=== PATIENT | male | born 1945 | race Caucasian/White ===

== ENCOUNTER 2023-02-20 12:18 | Inpatient (IN) ==
[2023-02-20 12:57] LABS: Basophils # (auto) 0.02 K/uL (0-0.2); Basophils % (auto) 0.3 %; Eosinophils # (auto) 0.02 K/uL (0-0.50); Eosinophils % (auto) 0.3 %; Hematocrit (blood only) 44.2 % (42.0-52.0); Hemoglobin 14.7 g/dl (14.0-18.0); Immature Granulocytes # (auto) 0.02 K/uL (0.01-0.20); Immature Granulocytes % (auto) 0.3 %; Lymphocytes % (auto) 13.2 %; Mean Corpuscular Hemoglobin 30.8 pg (25.0-34.0); Mean Corpuscular Hgb Conc 33.3 g/dL (32.0-36.0); Mean Corpuscular Volume 92.7 fL (80.0-100.0); Mean Platelet Volume 9.3 fL (9.4-12.4); Monocytes # (auto) 0.49 K/uL (0.11-0.59); Monocytes % (auto) 7.2 %; Neutrophils # (auto) 5.39 K/uL (1.40-6.50); Neutrophils % (auto) 78.7 %; Platelet Count 292 K/uL (130-400); RDW Coefficient of Variation 13.8 % (11.5-14.5); Red Blood Count 4.77 M/uL (4.70-6.10); White Blood Count 6.84 K/ul (4.8-10.8)
[2023-02-20 13:10] LABS: Alanine Aminotransferase 27 U/L (7-52); Albumin Globulin Ratio 1.2 (0.9-2); Alkaline Phosphatase 91 U/L (34-104); Anion Gap 6 (3-11); Aspartate Aminotransferase 22 U/L (13-39); BUN Creatinine Ratio 14.6 (10-20); Bilirubin,Total 0.7 mg/dl (0.2-1.0); Blood Urea Nitrogen 14 mg/dl (6-23); Calcium 8.8 mg/dl (8.6-10.3); Carbon Dioxide 25 mmol/L (21-32); Chloride 105 mmol/L (98-107); Est GFR (African American) 89.3 ml/min; Globulin 3.3 gm/dl (2.5-4.0); Glucose 81 mg/dl (70-99(Fasting)); Lipase 319 U/L (11-82); Potassium 3.9 mmol/L (3.5-5.1); Sodium 136 mmol/L (136-145); Total Protein 7.3 gm/dl (6.0-8.3)
[2023-02-20] MEDS ORDERED: SODIUM CHLORIDE 0.9% 1000ML 1,000 ML IV ONE (14:44)
[2023-02-20] MEDS ORDERED: ONDANSETRON INJ 2 MG/ML 2 ML VIAL IV STA (14:46)
--- NOTE | 2023-02-20 14:49 | Emergency Department Note ---
Impression & Plan Acute pancreatitis, Abdominal pain ED Provider Note NAME: LANCE TORRES AGE: 77 SEX: M : 1945 ARRIVES VIA: Walk-In INFORMANT: Patient ED PROVIDER(S): Errol Cleveland DO CHIEF COMPLAINT: abdominal pain HPI: Patient is a 77-year-old male who presents the ER with past medical history of hypertension GERD and previous abdominal surgeries which include hernia repair for periumbilical to left mid abdominal pain. This started this past Monday. Significant worsened with eating. If he does not eat and improves. Associate with nausea but no vomiting. Denies any dysuria, urgency, or frequency. No headache or change in vision. No chest pain or shortness of breath. He has never had this before. Does not drink alcohol regularly. He has not had any alcohol recently. No history of pancreatitis. He did see his PCP and was referred in for further evaluation management treatment. PAST MEDICAL HISTORY:See Below PAST SURGICAL HISTORY:See Below FAMILY HISTORY:See Below SOCIAL HISTORY:See Below HOME MEDICATIONS:See Below ALLERGIES:See Below VITALS:See Below PHYSICAL EXAMINATION: GENERAL: Sitting up in bed, alert, well appearing, well nourished, no distress, non-toxic EYE EXAM: normal conjunctiva. OROPHARYNX: no exudate, no erythema, lips, buccal mucosa, and tongue normal and mucous membranes are moist NECK: supple, no nuchal rigidity, no adenopathy, non-tender LUNGS: Clear to auscultation. Normal chest wall mechanics HEART: no murmurs, S1 normal and S2 normal ABDOMEN: abdomen soft, mild tenderness in left upper quadrant, normo-active bowel sounds, no masses, no rebound or guarding. UPPER EXTREMITIES: upper extremities are grossly normal. LOWER EXTREMITIES: No pitting edema. NEURO EXAM: Normal sensorium, cranial nerves II-XII grossly intact, normal speech, no gross weakness of arms, no gross weakness of legs. MEDICAL DECISION MAKING: Patient is a 77-year-old male who presents ER for periumbilical abdominal pain radiating through to the back. IV was established blood work was obtained. Labs show no significant leukocytosis or anemia. BMP along with LFTs bilirubin was unremarkable. Lipase was elevated at 320. CT abdomen pelvis confirms pancreatitis. UA was clean. Patient was given IV fluids and Zofran. He was updated bedside. He was fairly comfortable as long as he was not eating. He was discussed with the hospitalist for further evaluation management treatment. Triage Nursing notes reviewed. Limited review of prior medical records performed Vital Signs: reviewed and remarkable for no significant abnormalities Differential diagnosis: Differential diagnoses includes but is not limited to gastritis, peptic ulcer disease, GERD, gallbladder disease, pancreatitis, small bowel obstruction, appendicitis, diverticulitis, hernia, urinary tract infection, torsion, perfo ration, trauma, infectious. ER treatment provided: See below Diagnostics interpreted by me include EKG and cardiac monitoring as listed below: -Cardiac Monitoring: An order was placed for continuous cardiac monitoring. The monitor shows a rate of 50 with sinus rhythm. -ECG: none -Laboratory studies:Interpreted by me as stated above in MDM and shown below. Imaging studies: Xrays: As interpreted by me:none CTs show: CT abdomen pelvis per my read showed no obvious obstruction Consultation(s): As described in MDM Procedures:none Critical Care: None Past Med/Surg History Medical History (Updated 02/20/23 @ 20:08 by Errol Cleveland DO) Aortic valve stenosis Atrial fibrillation GERD (gastroesophageal reflux disease) HTN (hypertension) Surgical History (Updated 02/20/23 @ 18:16 by Kaitlyn Richardson PA-C) History of hip replacement b/l Hx of aortic valve replacement done in [place], [place] Dr. Zach Wood Hx of hernia repair age 7 Family History (Updated 02/20/23 @ 18:17 by Kaitlyn Richardson PA-C) Other Family history non-contributory Social History (Updated 02/20/23 @ 18:17 by Kaitlyn Richardson PA-C) Smoking Status: Former smoker Hx Alcohol Use: Yes Hx Substance Use: No Preferred Language: Kinyarwanda marital status: Current Living Situation: Spouse current occupational status: retired Feels Safe at Home: Yes Allergies Allergies Allergy/AdvReac Type Severity Reaction Status Date / Time latex Allergy Intermediate swelling Verified 02/20/23 15:37 on contact ragweed pollen Allergy Intermediate swelling Verified 02/20/23 15:37 tetracycline Allergy Intermediate hives Verified 02/20/23 15:37 Home Meds Home Medications Medication Instructions Recorded Confirmed amlodipine 10 mg tablet (Norvasc) 10 mg PO DAILY 12/15/18 02/20/23 amoxicillin 500 mg capsule 2,000 mg PO DIRECTED 12/15/18 02/20/23 ascorbate calcium-bioflavonoid 500 1 tab PO DAILY 12/15/18 02/20/23 mg-200 mg tablet (Macey-C with Bioflavonoids) calcium carbonate 600 mg calcium 600 mg PO DAILY 12/15/18 02/20/23 (1,500 mg) tablet (Calcium) enalapril maleate 20 mg tablet 20 mg PO DAILY 12/15/18 02/20/23 magnesium oxide 400 mg PO BID 12/15/18 02/20/23 vitamin B complex (B-Complex 1 tab PO DAILY 12/15/18 02/20/23 tablet) amiodarone 200 mg tablet 200 mg PO DAILY 02/20/23 02/20/23 aspirin 81 mg tablet,delayed 81 mg PO DAILY 02/20/23 02/20/23 release yaoqiwvoiyq-izr-ayfhmmxyw-hrb 2 tab PO DAILY 02/20/23 02/20/23 149-hyalur 500 mg-500 mg-66.7 mg tablet (Pdqnzanzofy-Caowzvqtaoc-KMK (with antiox)) lansoprazole 30 mg capsule,delayed 30 mg PO DAILY 02/20/23 02/20/23 release Results & Data (ED) Vital Signs Vital Signs - 24 hr 02/20/23 12:22 02/20/23 14:52 02/20/23 14:53 Temperature 36.8 C Temperature Source Temporal Artery Scan Pulse Rate 48 L 53 L Pulse Rate [Apical] 52 L Pulse Rate from SpO2 Sensor Respiratory Rate 18 22 22 Respiratory Effort / Characteristics Non-Labored Spontaneous Respiratory Depth Normal Respiratory Pattern Regular Blood Pressure 116/78 Blood Pressure [Right Arm] 150/74 H Blood Pressure Mean 90 Blood Pressure Mean [Right Arm] 99 Blood Pressure Position [Right Arm] Semi-fowlers Pulse Oximetry 98 95 94 Oxygen Delivery Method Room Air Room Air Room Air Sepsis Recent Fever Within 48 Hours No Sepsis New/Unexplained Change in Mental Status No Sepsis Action Taken by Nursing No Action Required 02/20/23 14:59 02/20/23 14:53 02/20/23 14:53 Temperature Temperature Source Pulse Rate 50 L 53 L Pulse Rate [Apical] Pulse Rate from SpO2 Sensor 52 L Respiratory Rate 16 Respiratory Effort / Characteristics Respiratory Depth Respiratory Pattern Blood Pressure 150/74 H Blood Pressure [Right Arm] Blood Pressure Mean 105 Blood Pressure Mean [Right Arm] Blood Pressure Position [Right Arm] Pulse Oximetry 95 Oxygen Delivery Method Sepsis Recent Fever Within 48 Hours Sepsis New/Unexplained Change in Mental Status Sepsis Action Taken by Nursing 02/20/23 15:00 02/20/23 15:10 02/20/23 15:28 Temperature Temperature Source Pulse Rate 51 L 47 L 59 L Pulse Rate [Apical] Pulse Rate from SpO2 Sensor 51 L 47 L Respiratory Rate 21 21 22 Respiratory Effort / Characteristics Respiratory Depth Respiratory Pattern Blood Pressure Blood Pressure [Right Arm] Blood Pressure Mean Blood Pressure Mean [Right Arm] Blood Pressure Position [Right Arm] Pulse Oximetry 94 94 Oxygen Delivery Method Sepsis Recent Fever Within 48 Hours Sepsis New/Unexplained Change in Mental Status Sepsis Action Taken by Nursing 02/20/23 15:30 02/20/23 15:40 02/20/23 15:50 Temperature Temperature Source Pulse Rate 57 L 50 L 51 L Pulse Rate [Apical] Pulse Rate from SpO2 Sensor Respiratory Rate 21 23 20 Respiratory Effort / Characteristics Respiratory Depth Respiratory Pattern Blood Pressure Blood Pressure [Right Arm] Blood Pressure Mean Blood Pressure Mean [Right Arm] Blood Pressure Position [Right Arm] Pulse Oximetry Oxygen Delivery Method Sepsis Recent Fever Within 48 Hours Sepsis New/Unexplained Change in Mental Status Sepsis Action Taken by Nursing 02/20/23 16:00 02/20/23 16:10 02/20/23 16:23 Temperature Temperature Source Pulse Rate 53 L 49 L 50 L Pulse Rate [Apical] Pulse Rate from SpO2 Sensor Respiratory Rate 22 19 17 Respiratory Effort / Characteristics Respiratory Depth Respiratory Pattern Blood Pressure Blood Pressure [Right Arm] Blood Pressure Mean Blood Pressure Mean [Right Arm] Blood Pressure Position [Right Arm] Pulse Oximetry Oxygen Delivery Method Sepsis Recent Fever Within 48 Hours Sepsis New/Unexplained Change in Mental Status Sepsis Action Taken by Nursing 02/20/23 16:24 02/20/23 16:24 02/20/23 16:30 Temperature Temperature Source Pulse Rate 49 L 46 L Pulse Rate [Apical] Pulse Rate from SpO2 Sensor 49 L 46 L Respiratory Rate 21 16 Respiratory Effort / Characteristics Respiratory Depth Respiratory Pattern Blood Pressure 139/68 Blood Pressure [Right Arm] Blood Pressure Mean 85 Blood Pressure Mean [Right Arm] Blood Pressure Position [Right Arm] Pulse Oximetry 93 95 Oxygen Delivery Method Sepsis Recent Fever Within 48 Hours Sepsis New/Unexplained Change in Mental Status Sepsis Action Taken by Nursing 02/20/23 16:40 02/20/23 16:50 02/20/23 17:00 Temperature Temperature Source Pulse Rate 47 L 45 L Pulse Rate [Apical] Pulse Rate from SpO2 Sensor 47 L 48 L Respiratory Rate 17 16 Respiratory Effort / Characteristics Respiratory Depth Respiratory Pattern Blood Pressure 121/71 Blood Pressure [Right Arm] Blood Pressure Mean 88 Blood Pressure Mean [Right Arm] Blood Pressure Position [Right Arm] Pulse Oximetry 93 90 Oxygen Delivery Method Sepsis Recent Fever Within 48 Hours Sepsis New/Unexplained Change in Mental Status Sepsis Action Taken by Nursing 02/20/23 17:00 02/20/23 17:10 02/20/23 17:20 Temperature Temperature Source Pulse Rate 52 L 53 L 52 L Pulse Rate [Apical] Pulse Rate from SpO2 Sensor 53 L 56 L Respiratory Rate 23 18 20 Respiratory Effort / Characteristics Respiratory Depth Respiratory Pattern Blood Pressure Blood Pressure [Right Arm] Blood Pressure Mean Blood Pressure Mean [Right Arm] Blood Pressure Position [Right Arm] Pulse Oximetry 95 94 Oxygen Delivery Method Sepsis Recent Fever Within 48 Hours Sepsis New/Unexplained Change in Mental Status Sepsis Action Taken by Nursing 02/20/23 17:30 02/20/23 17:40 02/20/23 17:50 Temperature Temperature Source Pulse Rate 60 52 L 49 L Pulse Rate [Apical] Pulse Rate from SpO2 Sensor Respiratory Rate 17 21 19 Respiratory Effort / Characteristics Respiratory Depth Respiratory Pattern Blood Pressure Blood Pressure [Right Arm] Blood Pressure Mean Blood Pressure Mean [Right Arm] Blood Pressure Position [Right Arm] Pulse Oximetry Oxygen Delivery Method Sepsis Recent Fever Within 48 Hours Sepsis New/Unexplained Change in Mental Status Sepsis Action Taken by Nursing 02/20/23 18:00 02/20/23 18:00 02/20/23 18:10 Temperature Temperature Source Pulse Rate 48 L 47 L Pulse Rate [Apical] Pulse Rate from SpO2 Sensor Respiratory Rate 12 17 Respiratory Effort / Characteristics Respiratory Depth Respiratory Pattern Blood Pressure 133/68 Blood Pressure [Right Arm] Blood Pressure Mean 81 Blood Pressure Mean [Right Arm] Blood Pressure Position [Right Arm] Pulse Oximetry Oxygen Delivery Method Sepsis Recent Fever Within 48 Hours Sepsis New/Unexplained Change in Mental Status Sepsis Action Taken by Nursing Laboratory Data 02/20/23 12:38 02/20/23 12:38 Lab Results 02/20/23 02/20/23 02/20/23 Range/Units 12:38 12:38 14:52 WBC 6.84 (4.8-10.8) K/ul RBC 4.77 (4.70-6.10) M/uL Hgb 14.7 (14.0-18.0) g/dl Hct 44.2 (42.0-52.0) % MCV 92.7 (80.0-100.0) fL MCH 30.8 (25.0-34.0) pg MCHC 33.3 (32.0-36.0) g/dL RDW Std Deviation 47.0 H (36.4-46.3) fL RDW Coeff of Willa 13.8 (11.5-14.5) % Plt Count 292 (130-400) K/uL MPV 9.3 L (9.4-12.4) fL Immature Gran % (Auto) 0.3 % Neut % (Auto) 78.7 % Lymph % (Auto) 13.2 % Lucas % (Auto) 7.2 % Eos % (Auto) 0.3 % Baso % (Auto) 0.3 % Neut # (Auto) 5.39 (1.40-6.50) K/uL Lymph # (Auto) 0.90 L (1.2-3.4) K/uL Lucas # (Auto) 0.49 (0.11-0.59) K/uL Eos # (Auto) 0.02 (0-0.50) K/uL Baso # (Auto) 0.02 (0-0.2) K/uL Immature Gran # (Auto) 0.02 (0.01-0.20) K/uL Sodium 136 (136-145) mmol/L Potassium 3.9 (3.5-5.1) mmol/L Chloride 105 (98-107) mmol/L Carbon Dioxide 25 (21-32) mmol/L Anion Gap 6 (3-11) BUN 14 (6-23) mg/dl Creatinine 0.96 (0.6-1.4) mg/dl Est Cr Clr Drug Dosing Not Reportable Est GFR ( Amer) 89.3 ml/min Est GFR (Non-Af Amer) 77.0 ml/min BUN/Creatinine Ratio 14.6 (10-20) Glucose 81 (70-99(Fasting)) mg/dl Calcium 8.8 (8.6-10.3) mg/dl Total Bilirubin 0.7 (0.2-1.0) mg/dl AST 22 (13-39) U/L ALT 27 (7-52) U/L Alkaline Phosphatase 91 (34-104) U/L Total Protein 7.3 (6.0-8.3) gm/dl Albumin 4.0 (3.4-5.0) gm/dl Globulin 3.3 (2.5-4.0) gm/dl Albumin/Globulin Ratio 1.2 (0.9-2) Lipase 319 H (11-82) U/L Urine Color Dark Yellow Urine Appearance Clear (Clear) Urine pH 5.5 (4.5-7.5) Ur Specific [place] 1.023 (1.000-1.030) Urine Protein Trace H (Negative) Urine Glucose (UA) Negative (Negative) Urine Ketones 1+ H (Negative) Urine Blood Negative (Negative) Urine Nitrite Negative (Negative) Urine Bilirubin 1+ H (Negative) Urine Urobilinogen Negative (Negative) Ur Leukocyte Esterase Negative (Negative) Urine WBC (Auto) 1-5 (0-5) /hpf Urine RBC (Auto) 0-4 (0-4) /hpf U Hyaline Cast (Auto) 5-10 H (0-5) /lpf U Epithel Cells (Auto) 5-10 H (0-5) /lpf Urine Bacteria (Auto) Negative (Negative) Administered Medications Discontinued Medications Sodium Chloride (Nss 1000ml) 1,000 mls @ 999 mls/hr IV .Q1H1M ONE Stop: 02/20/23 15:44 Last Admin: 02/20/23 14:54 Dose: 999 mls/hr Documented By: Ioversol (Optiray 350 500ml) 88 ml IV ONCE ONE Stop: 02/20/23 15:22 Last Admin: 02/20/23 15:22 Dose: 88 ml Documented By: UTE Ondansetron HCl (Ondansetron Inj 2 Mg/Ml 2 Ml Vial) 4 mg IV NOW STA Stop: 02/20/23 14:47 Last Admin: 02/20/23 14:54 Dose: 4 mg Documented By: Imaging Data Radiologist's Impression: Abdomen/Pelvis CT 02/20/23 14:44 CT SCAN OF THE ABDOMEN AND PELVIS WITH IV CONTRAST CLINICAL HISTORY: Generalized abdominal pain. COMPARISON STUDY: No priors TECHNIQUE: Following the IV administration of 88 cc of Optiray 350, CT scan of the abdomen and pelvis is performed from the lung bases to the proximal femora. Images are reviewed in the axial, sagittal, and coronal planes. IV contrast was administered without complication. A dose lowering technique was utilized adhe ring to the principles of ALARA. CT DOSE: 1195.93 mGy.cm FINDINGS: Lung bases: The patient is status post midline sternotomy and aortic valve surgery. The coronary arteries are densely calcified. The heart is enlarged and without pericardial effusion. There is an 8 mm pulmonary nodule at the left lung base seen on image #16. Scarring/atelectasis is present at both lung bases. No airspace consolidation or pleural effusion is identified. Liver: The contrast-enhanced liver is normal in size, contour, and attenuation. There is no intrahepatic biliary ductal dilatation. The hepatic veins and portal veins are patent. Gallbladder: Unremarkable. Spleen: Normal in size and attenuation. Pancreas: The pancreas is mildly atrophic. Question faint peripancreatic infiltration. The pancreas is otherwise normal in appearance and enhances throughout. Adrenal glands: Unremarkable. Kidneys: The contrast enhanced kidneys demonstrate mild cortical atrophy and are without hydronephrosis. The kidneys enhance symmetrically. There are small bilateral renal sinus cysts. A 1.9 cm exophytic cyst arises from the left upper pole. Abdominal vasculature: There is moderate atherosclerotic calcification and mild ectasia of the abdominal aorta. Bowel: There is moderate colonic fecal retention. No bowel obstruction is seen. The appendix is well-visualized and normal. Peritoneum: There is no intraperitoneal free air or abdominal ascites. There is a fat-containing umbilical hernia. Lymphadenopathy: None. Pelvic viscera: Evaluation of the pelvis is degraded by streak artifact from bilateral hip arthroplasties. The bladder, prostate, and seminal vesicles are normal as visualized. Skeletal structures: The skeletal structures are osteopenic. There is moderate lumbosacral spondylosis. There are bilateral pars defects at L5 with advanced disc space narrowing and 14 mm of anterolisthesis at L5-S1. No lytic or blastic lesions are seen. Bilateral hip arthroplasties are in place. IMPRESSION: 1. Question faint peripancreatic infiltration. Correlate with clinical laboratory findings for evidence of mild pancreatitis. 2. Cardiomegaly. 3. Additional findings as above. ACT 112: Negative or not required by law. Electronically signed by: Venkat Velasquez M.D. 02/20/2023 3:44 PM Discharge Plan Visit Data Chief Complaint: Flank Pain Stated Complaint: FLANK PAIN,NAUSEA, ED Provider: Errol Cleveland Discharge Problem: Acute pancreatitis, Abdominal pain Forms Stand Alone Forms: [facility] Prescriptions Prescriptions: No Action enalapril maleate 20 mg tablet 20 mg PO DAILY amlodipine [Norvasc] 10 mg Tablet 10 mg PO DAILY amoxicillin 500 mg Capsule 2,000 mg PO DIRECTED Rx Instructions: TAKE 1 HR PRIOR TO DENTAL PROCEDURE calcium carbonate [Calcium 600] 600 mg calcium (1,500 mg) Tablet 600 mg PO DAILY vitamin B complex [B-Complex] Tablet 1 tab PO DAILY Macey-C with Bioflavonoids 500-200 mg Tablet 1 tab PO DAILY magnesium oxide 400 mg magnesium Tablet 400 mg PO BID amiodarone 200 mg tablet 200 mg PO DAILY aspirin [Aspir-Low] 81 mg Tablet,Delayed Release (Dr/Ec) 81 mg PO DAILY lansoprazole 30 mg capsule,delayed release(DR/EC) 30 mg PO DAILY [id number] [Fbytam-Nqtme-ECC (with antiox)] 500-500-66.7 mg Tablet 2 tab PO DAILY Referrals Referrals: PCP,NO [Physician] -
[2023-02-20 15:17] LABS: Appearance Urine Clear (Clear); Bacteria Urine Automated Negative (Negative); Blood Urine Negative (Negative); Color Urine Dark Yellow; Glucose Urine UA Negative (Negative); Ketones Urine 1+ (Negative); Leukocyte Esterase Urine Negative (Negative); Nitrite Urine Negative (Negative); Protein Urine Trace (Negative); RBC Urine Automated 0-4 /hpf (0-4); Specific Gravity Urine 1.023 (1.000-1.030); Urobilinogen Urine Negative (Negative); pH Urine 5.5 (4.5-7.5)
[2023-02-20 15:20] LABS: Bilirubin Urine 1+ (Negative)
[2023-02-20] MEDS ORDERED: OPTIRAY 350 500ml IV ONE (15:21)
--- NOTE | 2023-02-20 15:47 | CT Scan Report ---
CT SCAN OF THE ABDOMEN AND PELVIS WITH IV CONTRAST CLINICAL HISTORY: Generalized abdominal pain. COMPARISON STUDY: No priors TECHNIQUE: Following the IV administration of 88 cc of Optiray 350, CT scan of the abdomen and pelvi s is performed from the lung bases to the proximal femora. Images are reviewed in the axial, sagittal , and coronal planes. IV contrast was administered without complication. A dose lowering technique wa s utilized adhering to the principles of ALARA. CT DOSE: 1195.93 mGy.cm FINDINGS: Lung bases: The patient is status post midline sternotomy and aortic valve surgery. The coronary amberly quinn are densely calcified. The heart is enlarged and without pericardial effusion. There is an 8 mm pulmonary nodule at the left lung base seen on image #16. Scarring/atelectasis is present at both corey g bases. No airspace consolidation or pleural effusion is identified. Liver: The contrast-enhanced liver is normal in size, contour, and attenuation. There is no intrahepa tic biliary ductal dilatation. The hepatic veins and portal veins are patent. Gallbladder: Unremarkable. Spleen: Normal in size and attenuation. Pancreas: The pancreas is mildly atrophic. Question faint peripancreatic infiltration. The pancreas i s otherwise normal in appearance and enhances throughout. Adrenal glands: Unremarkable. Kidneys: The contrast enhanced kidneys demonstrate mild cortical atrophy and are without hydronephros is. The kidneys enhance symmetrically. There are small bilateral renal sinus cysts. A 1.9 cm exophyti c cyst arises from the left upper pole. Abdominal vasculature: There is moderate atherosclerotic calcification and mild ectasia of the abdomi nal aorta. Bowel: There is moderate colonic fecal retention. No bowel obstruction is seen. The appendix is well -visualized and normal. Peritoneum: There is no intraperitoneal free air or abdominal ascites. There is a fat-containing umbi lical hernia. Lymphadenopathy: None. Pelvic viscera: Evaluation of the pelvis is degraded by streak artifact from bilateral hip arthroplas ties. The bladder, prostate, and seminal vesicles are normal as visualized. Skeletal structures: The skeletal structures are osteopenic. There is moderate lumbosacral spondylosi s. There are bilateral pars defects at L5 with advanced disc space narrowing and 14 mm of anterolisth esis at L5-S1. No lytic or blastic lesions are seen. Bilateral hip arthroplasties are in place. IMPRESSION: 1. Question faint peripancreatic infiltration. Correlate with clinical laboratory findings for eviden ce of mild pancreatitis. 2. Cardiomegaly. 3. Additional findings as above. ACT 112: Negative or not required by law. Electronically signed by: Venkat Velasquez M.D. 02/20/2023 3:44 PM
--- NOTE | 2023-02-20 16:54 | History & Physical Report ---
Date of Service February 20, 2023 Assessment & Plan (1) Abdominal pain: (2) Acute pancreatitis: (3) Atrial fibrillation: (4) Hypertension: Plan This is a 77-year-old male who has significant past medical history of PAF, history of aortic valve replacement in 2018, HTN, GERD who presents ED secondary to abdominal pain. Abdominal Pain Acute pancreatitis admit to medical NPO, bowel rest IVF LR @ 125cc/hr - will run at slower rate in setting of AVR will consult GI obtain GB US obtain fasting lipid panel in a.m. although previous lipids unremarkable pt does have hx of drinking wine, but none in last 2-3 weeks sx due appear consistent with GB dysfunction as well trend lipase other possible etiologies of abd pain could be functional dyspepsia, ? GB dysfunction, hx of gastric polyps pt reports 30lb weight loss that is intentional Hx of PAF S/p Bioprosthetic AVR chronic, stable currently in NSR on amiodarone as OP followed Cards down in [place], [place] is establishing with [email or web address] HTN continue enalapril and norvasc bp stable, chronic DVT ppx: SQ Lovenox FULL CODE PCP: Cezar Dispo: med/surg Pt was seen and examined in collaboration with Dr. Ram, please see addendum A total of 75 was spent coordinating, documenting, and providing care for this patient excluding time spent in the performance of separately billed services. This included personally viewing all current laboratories and imaging studies, medication reconciliation, outpatient chart review, and discussion with specialists. History of Present Illness Chief Complaint: Abdominal pain Primary Care Provider: Ana Robb MD This is a 77-year-old male who has significant past medical history of PAF, history of aortic valve replacement in 2018, HTN, GERD who presents ED secondary to abdominal pain. Patient's is at bedside. He states on February 09 he contracted a viral gastroenteritis in which his also caught. This was associated with watery diarrhea and fever of 100.5. He did do a COVID home test which was negative. Since then he has not felt quite right. He has been having increased abdominal bloating, belching, constipation and abdominal discomfort postprandial. He has had generalized abdominal discomfort in his left upper abdomen which is constant, but worsens after meals. Pain also has been radiating to his back. It does not seem to be positional. He does report fever last evening of 100.1, but this morning was 98.6 he has lost 30 pounds in the last 3 months which has been intentional. He further complains of nausea but denies any vomiting. He denies any lightheadedness, dizziness, chest pain, shortness of breath, URI symptoms, hematemesis, melena or hematochezia. He is urinating with difficulty but felt urine was very dark. He denies any dysuria, increased urgency or frequency with urination or diarrhea. He had a v alma small bowel movement today. In ED CBC and CMP was generally unremarkable. He did have mild elevated lipase at 319. His LFTs were normal. CT abdomen pelvis concerning for faint peripancreatic infiltration and cardiomegaly. Patient denies any prior history of gallbladder issues. He tries to drink alcohol but has not drank in the last 2 to 3 weeks. Typically drinks 3 to 4 glasses of wine weekly. Allergies Allergy/AdvReac Type Severity Reaction Status Date / Time latex Allergy Intermediate swelling Verified 02/20/23 15:37 on contact ragweed pollen Allergy Intermediate swelling Verified 02/20/23 15:37 tetracycline Allergy Intermediate hives Verified 02/20/23 15:37 Home Medications Medication Instructions Recorded Confirmed Type amlodipine 10 mg tablet (Norvasc) 10 mg PO DAILY 12/15/18 02/20/23 History amoxicillin 500 mg capsule 2,000 mg PO DIRECTED 12/15/18 02/20/23 History ascorbate calcium-bioflavonoid 500 1 tab PO DAILY 12/15/18 02/20/23 History mg-200 mg tablet (Macey-C with Bioflavonoids) calcium carbonate 600 mg calcium 600 mg PO DAILY 12/15/18 02/20/23 History (1,500 mg) tablet (Calcium) enalapril maleate 20 mg tablet 20 mg PO DAILY 12/15/18 02/20/23 History magnesium oxide 400 mg PO BID 12/15/18 02/20/23 History vitamin B complex (B-Complex 1 tab PO DAILY 12/15/18 02/20/23 History tablet) amiodarone 200 mg tablet 200 mg PO DAILY 02/20/23 02/20/23 History aspirin 81 mg tablet,delayed 81 mg PO DAILY 02/20/23 02/20/23 History release djrdfbftpeo-aaz-hvymjmlaj-hrb 2 tab PO DAILY 02/20/23 02/20/23 History 149-hyalur 500 mg-500 mg-66.7 mg tablet (Jfkjmjpbihi-Azcjqmrtesx-YTM (with antiox)) lansoprazole 30 mg capsule,delayed 30 mg PO DAILY 02/20/23 02/20/23 History release Past Med/Surg History Medical History (Updated 02/20/23 @ 20:08 by Errol Cleveland DO) Aortic valve stenosis Atrial fibrillation GERD (gastroesophageal reflux disease) HTN (hypertension) Surgical History (Updated 02/20/23 @ 18:16 by Kaitlyn Richardson PA-C) History of hip replacement b/l Hx of aortic valve replacement done in [place], [place] Dr. Zach Wood Hx of hernia repair age 7 Family History (Updated 02/20/23 @ 18:17 by Kaitlyn Richardson PA-C) Other Family history non-contributory Social History (Updated 02/20/23 @ 18:17 by Kaitlyn Richardson PA-C) Smoking Status: Former smoker Hx Alcohol Use: Yes Hx Substance Use: No Preferred Language: Mosotho marital status: Current Living Situation: Spouse current occupational status: retired Feels Safe at Home: Yes Review of Systems Review of Systems: All systems reviewed & are unremarkable except as noted in HPI & below Physical Exam Physical Exam: Constitutional: WD/WN, vitals as above, NAD, sitting up in bed, pleasant, conversing easily Head: Normocephalic, Atraumatic Eyes: PERRL, conjunctivae normal, anicteric sclerae ENMT: external ear and nose normal, oropharynx normal Neck: trachea midline, no thyromegaly normal visual inspection Respiratory: normal respiratory effort, lungs clear to auscultation, no wheeze, rales, rhonchi. Normal insp/exp effort, no accessory muscle use Cardiovascular: RRR, no murmur, no edema Vessels: no JVD or carotid bruit Chest: normal inspection of chest Abdomen: normal bowel sounds, distended but soft, TTP LUQ, no rebound, guarding,no hepatosplenomegaly Musculoskeletal: no cyanosis or clubbing, extremities motor strength 5/5 Skin: no rashes, warm and dry normal turgor Neurologic: PERRL, EOMI, accommodation nl, no face palsy, no dysarthria CN's II-XI intact bilaterally and moves all extremities Psychiatric: A+Ox3, euthymic affect : deferred Results & Data Results & Data Vital Signs (Past 12 Hours) Vital Signs Temp Pulse Pulse Resp BP BP Pulse Ox 02/20/23 15:10 47 L 21 94 02/20/23 15:00 51 L 21 94 02/20/23 14:53 53 L 16 95 02/20/23 14:53 150/74 H 02/20/23 14:59 50 L 02/20/23 14:53 52 L 22 150/74 H 94 02/20/23 14:52 53 L 22 95 02/20/23 12:22 36.8 C 48 L 18 116/78 98 O2 Del Method 02/20/23 15:10 02/20/23 15:00 02/20/23 14:53 02/20/23 14:53 02/20/23 14:59 02/20/23 14:53 Room Air 02/20/23 14:52 Room Air 02/20/23 12:22 Room Air Diagnostic Findings Abdomen/Pelvis CT 02/20/23 14:44 CT SCAN OF THE ABDOMEN AND PELVIS WITH IV CONTRAST CLINICAL HISTORY: Generalized abdominal pain. COMPARISON STUDY: No priors TECHNIQUE: Following the IV administration of 88 cc of Optiray 350, CT scan of the abdomen and pelvis is performed from the lung bases to the proximal femora. Images are reviewed in the axial, sagittal, and coronal planes. IV contrast was administered without complication. A dose lowering technique was utilized adhering to the principles of ALARA. CT DOSE: 1195.93 mGy.cm FINDINGS: Lung bases: The patient is status post midline sternotomy and aortic valve surgery. The coronary arteries are densely calcified. The heart is enlarged and without pericardial effusion. There is an 8 mm pulmonary nodule at the left lung base seen on image #16. Scarring/atelectasis is present at both lung bases. No airspace consolidation or pleural effusion is identified. Liver: The contrast-enhanced liver is normal in size, contour, and attenuation. There is no intrahepatic biliary ductal dilatation. The hepatic veins and portal veins are patent. Gallbladder: Unremarkable. Spleen: Normal in size and attenuation. Pancreas: The pancreas is mildly atrophic. Question faint peripancreatic infiltration. The pancreas is otherwise normal in appearance and enhances throughout. Adrenal glands: Unremarkable. Kidneys: The contrast enhanced kidneys demonstrate mild cortical atrophy and are without hydronephrosis. The kidneys enhance symmetrically. There are small bilateral renal sinus cysts. A 1.9 cm exophytic cyst arises from the left upper pole. Abdominal vasculature: There is moderate atherosclerotic calcification and mild ectasia of the abdominal aorta. Bowel: There is moderate colonic fecal retention. No bowel obstruction is seen. The appendix is well-visualized and normal. Peritoneum: There is no intraperitoneal free air or abdominal ascites. There is a fat-containing umbilical hernia. Lymphadenopathy: None. Pelvic viscera: Evaluation of the pelvis is degraded by streak artifact from bilateral hip arthroplasties. The bladder, prostate, and seminal vesicles are normal as visualized. Skeletal structures: The skeletal structures are osteopenic. There is moderate lumbosacral spondylosis. There are bilateral pars defects at L5 with advanced disc space narrowing and 14 mm of anterolisthesis at L5-S1. No lytic or blastic lesions are seen. Bilateral hip arthroplasties are in place. IMPRESSION: 1. Question faint peripancreatic infiltration. Correlate with clinical laboratory findings for evidence of mild pancreatitis. 2. Cardiomegaly. 3. Additional findings as above. ACT 112: Negative or not required by law. Electronically signed by: Venkat Velasquez M.D. 02/20/2023 3:44 PM Medications Administered Medication List Discontinued Medications Sodium Chloride (Nss 1000ml) 1,000 mls @ 999 mls/hr IV .Q1H1M ONE Stop: 02/20/23 15:44 Last Admin: 02/20/23 14:54 Dose: 999 mls/hr Documented By: Ioversol (Optiray 350 500ml) 88 ml IV ONCE ONE Stop: 02/20/23 15:22 Last Admin: 02/20/23 15:22 Dose: 88 ml Documented By: UTE Ondansetron HCl (Ondansetron Inj 2 Mg/Ml 2 Ml Vial) 4 mg IV NOW STA Stop: 02/20/23 14:47 Last Admin: 02/20/23 14:54 Dose: 4 mg Documented By: COVID-19 Results Results COVID-19 Adm Lab Results: RBC 4.77 M/uL (4.70-6.10) 02/20/23 WBC 6.84 K/ul (4.8-10.8) 02/20/23 Hgb 14.7 g/dl (14.0-18.0) 02/20/23 Hct 44.2 % (42.0-52.0) 02/20/23 Plt Count 292 K/uL (130-400) 02/20/23 Neutrophils (%) (Auto) 78.7 % 02/20/23 Lymphocytes (%) (Auto) 13.2 % 02/20/23 Monocytes # (Auto) 0.49 K/uL (0.11-0.59) 02/20/23 Eosinophils # (Auto) 0.02 K/uL (0-0.50) 02/20/23 Immature Granulocyte % (Auto) 0.3 % 02/20/23 Neutrophils # (Auto) 5.39 K/uL (1.40-6.50) 02/20/23 Lymphocytes # (Auto) 0.90 K/uL (1.2-3.4) L 02/20/23 Monocytes # (Auto) 0.49 K/uL (0.11-0.59) 02/20/23 Eosinophils # (Auto) 0.02 K/uL (0-0.50) 02/20/23 Basophils # (Auto) 0.02 K/uL (0-0.2) 02/20/23 Immature Granulocyte # (Auto) 0.02 K/uL (0.01-0.20) 3 Na 136 mmol/L (136-145) 02/20/23 K 3.9 mmol/L (3.5-5.1) 02/20/23 Cl 105 mmol/L (98-107) 02/20/23 CO2 25 mmol/L (21-32) 02/20/23 Anion Gap 6 (3-11) 02/20/23 BUN 14 mg/dl (6-23) 02/20/23 Creatinine 0.96 mg/dl (0.6-1.4) 02/20/23 BUN/Creatinine Ratio 14.6 (10-20) 02/20/23 Glucose Level 81 mg/dl (70-99(Fasting)) 02/20/23 Ca 8.8 mg/dl (8.6-10.3) 02/20/23 Total Bilirubin 0.7 mg/dl (0.2-1.0) 02/20/23 AST/SGOT 22 U/L (13-39) 02/20/23 ALT/SGPT 27 U/L (7-52) 02/20/23 Alkaline Phosphatase 91 U/L (34-104) 02/20/23 Total Protein 7.3 gm/dl (6.0-8.3) 02/20/23 Albumin 4.0 gm/dl (3.4-5.0) 02/20/23 Globulin 3.3 gm/dl (2.5-4.0) 02/20/23 Albumin/Globulin Ratio 1.2 (0.9-2) 02/20/23 Code Status & VTE Plan Code Status FULL CODE VTE Prophylaxis Plan VTE Prophylaxis will be ordered: Yes Supervising Physician Co-Signing Physician Notes I have seen and examined the patient and have discussed the case with the provider above. I agree with the assessment and plan as stated with the following exceptions. 77 yo M with a h/o heavy alcohol use who reports quitting 5 months ago aside from a few drinks intermittently presents with a persistent bloated gassy feeling since Monday. He reports severe LUQ pain with radiation into his back and pain was triggered by food. He reports belching after dinner Sat night, and began tapering his meals on Monday. He reports the "pain was so bad I made an appt with Dr. Robb." Was running a low temp 100.5 reported. This pain was preceded by a viral gastroenteritis lasting about 4 days which included some diarrhea and also affected his . Those symptoms have cleared up. He reports pain was so severe he had a hard time finding a good sleeping position. Today the pain is just tender but he only had a bite or two last night and nothing today. He reports an upper and lower endoscopy last year with two gastric polyps he said were benign and from PPI use (he reports using lansoprazole for 20 years). He reports a h/o H pylori approximately 20 years ago. I discussed that we would be collecting a stool sample to check for that today. ROS reveals 30 lbs weight loss since he quit drinking which was intentional. On exam he is WNWD and he is hemodynamically stable and afebrile. He is oxygenating well on room air. Abdomen is TTP in the LUQ area. There is no epigastric TTP and abdomen is otherwise soft NTND. CV exam reveals S1/2 heard without murmurs. Lungs are CTAB. There is no gross focal neuromuscular deficits. Workup today includes a normal CBC and chem panel. Lipase is slightly elevated at 319. Urine with evidence of bilirubin and ketones but no evidence of infection. CT abd pel with IV contrast reveals faint peripancreatic infiltration, moderate colonic fecal retention, and osteopenia. Abdominal pain possibly related to pancreatitis based on his description of symptoms over the past weekend. Agree with considering other possible causes of his discomfort here including PUD or gastritis or others given his nonspecific LUQ pain and bloating. On imaging the liver does not appears cirrhotic and there is no biliary ductal dilation. Hepatic and portal veins are patent. Spleen is normal in size. He does have risk factors for hepatobiliary disease including age and alcohol use and some bilirubin is present in the urine, however, labwork doesn't reflect hyperbilirubinemia, there are no elevated LFTs and he has a normal albumin, pointing away from this. He does have a longstanding h/o GERD and is dependent on Aciphex for symptom management. He reports a h/o H pylori infection. Will rule this out now, and appreciate GI consultation. Cont plan above to hydrate and offer bowel rest and symptom management. Would reintroduce food slowly when ready including clears then solids. The plan and findings were reviewed with the patient and his who verbalized understanding. Yo,
--- NOTE | 2023-02-20 21:15 | Ultrasound Report ---
Exam(s): US ABDOMEN LIMITED EXAM: US Abdomen Limited, Right Upper Quadrant CLINICAL HISTORY: Reason for exam: gallbladder. TECHNIQUE: Real-time ultrasound of the right upper quadrant with image documentation. COMPARISON: CT scan from February 20, 2023. FINDINGS: Liver: The liver is borderline enlarged measuring 17 cm craniocaudad. No focal liver lesion is seen for the portal vein is patent with normal hepatopetal flow. No intrahepatic bile duct dilation. Gallbladder: The gallbladder is normally distended with wall thickness is upper normal measuring 3 mm. No gallstones or pericholecystic fluid identified. Trace amount of sludge within the gallbladder. No gallstones are seen. Sonographic Krishna sign is negative. Common bile duct: The common bile duct is nondilated measuring 5 mm. Pancreas: There is a portion of the pancreas is unremarkable. The pancreatic duct is mildly dilated measuring up to 6 mm. Right kidney: The right kidney measures 11.7 cm with normal appearance. No hydronephrosis. There is a 1.8 x 1.9 x 2 cm simple cyst within it centrally. No follow-up is required. No stones. IMPRESSION: Small amount of sludge within the gallbladder. Sonographic Krishna sign is negative. Dilated pancreatic duct measuring up to 6 mm. Electronically signed by: Juice Ponce MD 02/20/23 21:13 PM
[2023-02-20] MEDS ORDERED: MAGNESIUM HYDROXIDE SUSP 30 ML UDC PO PRN (21:19)
[2023-02-20] MEDS ORDERED: ONDANSETRON INJ 2 MG/ML 2 ML VIAL IV PRN (21:19)
[2023-02-20] MEDS ORDERED: ACETAMINOPHEN 325 MG TAB PO PRN (21:19)
[2023-02-20] MEDS ORDERED: ACETAMINOPHEN 1,000 MG/100 ML VIAL IV PRN (21:19)
[2023-02-20] MEDS ORDERED: POLYETHYLENE (MIRALAX) 17 GM PACK PO PRN (21:19)
[2023-02-20] MEDS ORDERED: ALUMINUM/MAGNESIUM SUSP 30 ML UDC PO PRN (21:19)
[2023-02-20] MEDS ORDERED: MoRPHine SULFATE 4 MG/ML 1 ML CARP\\VIAL IV PRN (21:28)
[2023-02-20] MEDS ORDERED: Patient's HEIGHT &/or WEIGHT Needed SCH (21:45)
[2023-02-20] MEDS: LACTATED RINGER'S 1,000 ML IV SCH (21:57)
[2023-02-20] MEDS: MAGNESIUM OXIDE 400 MG TAB PO SCH (22:34)
[2023-02-20] MEDS: ENOXAPARIN INJ 40 MG/0.4 ML SYR SQ SCH (22:35)
[2023-02-21] MEDS: LACTATED RINGER'S 1,000 ML IV SCH ×3 (04:09→17:30)
[2023-02-21 08:18] LABS: Basophils # (auto) 0.02 K/uL (0-0.2); Basophils % (auto) 0.4 %; Eosinophils # (auto) 0.06 K/uL (0-0.50); Eosinophils % (auto) 1.2 %; Hemoglobin 12.9 g/dl (14.0-18.0); Immature Granulocytes # (auto) 0.01 K/uL (0.01-0.20); Immature Granulocytes % (auto) 0.2 %; Lymphocytes # (auto) 0.67 K/uL (1.2-3.4); Lymphocytes % (auto) 13.1 %; Mean Corpuscular Hemoglobin 30.9 pg (25.0-34.0); Mean Corpuscular Hgb Conc 33.1 g/dL (32.0-36.0); Mean Corpuscular Volume 93.5 fL (80.0-100.0); Mean Platelet Volume 9.3 fL (9.4-12.4); Monocytes # (auto) 0.35 K/uL (0.11-0.59); Monocytes % (auto) 6.8 %; Neutrophils # (auto) 4.02 K/uL (1.40-6.50); Neutrophils % (auto) 78.3 %; Platelet Count 243 K/uL (130-400); RDW Coefficient of Variation 13.9 % (11.5-14.5); RDW Standard Deviation 47.7 fL (36.4-46.3); Red Blood Count 4.17 M/uL (4.70-6.10); White Blood Count 5.13 K/ul (4.8-10.8)
[2023-02-21 08:46] LABS: Albumin Globulin Ratio 1.2 (0.9-2); Albumin Level 3.2 gm/dl (3.4-5.0); BUN Creatinine Ratio 14.5 (10-20); Bilirubin,Total 0.6 mg/dl (0.2-1.0); Calcium 8.1 mg/dl (8.6-10.3); Creatinine Clr Calc Pharmacy 87.2 ml/min; Est GFR (African American) 103.4 ml/min; Est GFR (Non-African American) 89.2 ml/min; Globulin 2.6 gm/dl (2.5-4.0); Magnesium 2.1 mg/dl (1.7-2.4); Potassium 4.3 mmol/L (3.5-5.1); Total Protein 5.8 gm/dl (6.0-8.3)
[2023-02-21] MEDS ORDERED: AMIODARONE 200 MG TAB PO SCH (09:00)
--- NOTE | 2023-02-21 09:07 | Gastrointestinal Consultation ---
Date of Consultation February 21, 2023 Assessment & Plan (1) Acute pancreatitis: 77 year old male with left sided abd pain that radiates to his back following a self-limiting diarrheal illness whose imaging shows faint peripancreatic infiltration and a 6 mm pancreatic duct. His lipase is mildly elevated 319-->108 with normal liver function tests. He reports a 30 lb weight loss but notes this was intentional as he cut back on ETOH use NPO for bowel rest LR hydration 100 mL/hr Assess for 2 pt drop in HCT to ensure hydration Antiemetics PRN Analgesia PRN OP EUS will discuss timing with attending Thank you for allowing us to participate in the care of this patient. Please call with any acute changes, questions or concerns. Please see addendum below with additional recommendation from my supervising physician. Supervising Physician Co-Signing Physician Notes Attending attestation I have seen, examined this patient, and agree with the findings and above by our mid-level provider ACE Wilson, with the following additions: Patient adm after diarrheal illness with concern of uncomplicated pancreatitis. Doing well today Will need EUS to more closely look at the PD as well as the pancreas that can be arranged after 2 wks as outpt Continue supportive care Start clears today History of Present Illness Reason for Consultation: pancreatitis Requesting Physician: Disha Galloway MD Attending Physician: Disha Galloway MD History of Present Illness 77 year old male with history of PAF, history of aortic valve replacement in 2018, HTN, GERD who presents ED secondary to abdominal pain.GI was asked to evaluate for pancreatitis. Pt was seen and evaluated, chart reviewed. No family present at time of consultation. He notes his symptoms started end of January. He had a self-limiting GI illness with GI upset, nausea, diarrhea. had same symptoms, full resolved, however, notes his symptoms persistent. Monday he had worsening discomfort, abd pain, constipation, bloating and pain that radiated to his back which led to ED evaluation. Today he notes his only concern is left mid abdomen pain which radiates to his back. He just relocated to [place] from [place]. Suggests he was using 2-3 glasses of wine nightly. Decided he wanted to work on weight loss and stopped ETOH use around July. Notes sine July he has lost about 30 lbs. Now has been using ETOH a few days a week about 3-4 glasses a week CBC was generally unremarkable LFTs WNL Mild elevated lipase at 319 CT w/ faint peripancreatic infiltration ABD US w/ small amount of sludge within the gallbladder and a dilated pancreatic duct at 6 mm Allergies Allergy/AdvReac Type Severity Reaction Status Date / Time latex Allergy Intermediate swelling Verified 02/20/23 15:37 on contact ragweed pollen Allergy Intermediate swelling Verified 02/20/23 15:37 tetracycline Allergy Intermediate hives Verified 02/20/23 15:37 Home Medications Medication Instructions Recorded Confirmed Type amlodipine 10 mg tablet (Norvasc) 10 mg PO DAILY 12/15/18 02/20/23 History amoxicillin 500 mg capsule 2,000 mg PO DIRECTED 12/15/18 02/20/23 History ascorbate calcium-bioflavonoid 500 1 tab PO DAILY 12/15/18 02/20/23 History mg-200 mg tablet (Macey-C with Bioflavonoids) calcium carbonate 600 mg calcium 600 mg PO DAILY 12/15/18 02/20/23 History (1,500 mg) tablet (Calcium) enalapril maleate 20 mg tablet 20 mg PO DAILY 12/15/18 02/20/23 History magnesium oxide 400 mg PO BID 12/15/18 02/20/23 History vitamin B complex (B-Complex 1 tab PO DAILY 12/15/18 02/20/23 History tablet) amiodarone 200 mg tablet 200 mg PO DAILY 02/20/23 02/20/23 History aspirin 81 mg tablet,delayed 81 mg PO DAILY 02/20/23 02/20/23 History release xossxmykfyy-rpm-ujumbzstt-hrb 2 tab PO DAILY 02/20/23 02/20/23 History 149-hyalur 500 mg-500 mg-66.7 mg tablet (Zvzlwwzglbo-Raktekutksv-VGZ (with antiox)) lansoprazole 30 mg capsule,delayed 30 mg PO DAILY 02/20/23 02/20/23 History release Patient History Medical History (Updated 02/20/23 @ 20:08 by Errol Cleveland DO) Aortic valve stenosis Atrial fibrillation GERD (gastroesophageal reflux disease) HTN (hypertension) Surgical History (Updated 02/20/23 @ 18:16 by Kaitlyn Richardson PA-C) History of hip replacement b/l Hx of aortic valve replacement done in [place], [place] Dr. Zach Wood Hx of hernia repair age 7 Family History (Updated 02/20/23 @ 18:17 by Kaitlyn Richardson PA-C) Other Family history non-contributory Social History (Updated 02/20/23 @ 18:17 by Kaitlyn Richardson PA-C) Smoking Status: Former smoker Hx Alcohol Use: Yes Alcohol type: wine Hx Substance Use: No Preferred Language: Albanian Communication Ability: Effective Pail Tester Required: No Beliefs That Will Affect Care: None marital status: Current Living Situation: Spouse current occupational status: retired Feels Safe at Home: Yes Safety Concerns: Feels Safe At This Time Assistive Devices: Bedside Commode, Cane and Walker Review of Systems Review of Systems: All systems reviewed & are unremarkable except as noted in HPI & below Physical Exam Constitutional: WD/WN, vitals as above Respiratory: normal respiratory effort, lungs clear to auscultation Cardiovascular: Rate/Rhythm: regular rate and regular rhythm Gastrointestinal (Abdomen): normal bowel sounds, soft, nontender, no hepatosplenomegaly Skin: no rashes, warm and dry Results & Data Vital Signs (Past 12 Hours) Vital Signs Temp Pulse Resp BP Pulse Ox O2 Del Method 02/21/23 05:56 36.6 C 53 L 16 104/63 95 Room Air 02/20/23 21:00 Room Air 02/20/23 21:10 36.4 C L 51 L 16 127/75 94 Room Air Laboratory Results 02/21/23 02/21/23 02/21/23 Range/Units 07:55 07:55 07:55 WBC 5.13 (4.8-10.8) K/ul RBC 4.17 L (4.70-6.10) M/uL Hgb 12.9 L (14.0-18.0) g/dl Hct 39.0 L (42.0-52.0) % MCV 93.5 (80.0-100.0) fL MCH 30.9 (25.0-34.0) pg MCHC 33.1 (32.0-36.0) g/dL RDW Std Deviation 47.7 H (36.4-46.3) fL RDW Coeff of [place]illa 13.9 (11.5-14.5) % Plt Count 243 (130-400) K/uL MPV 9.3 L (9.4-12.4) fL Immature Gran % (Auto) 0.2 % Neut % (Auto) 78.3 % Lymph % (Auto) 13.1 % [place] % (Auto) 6.8 % Eos % (Auto) 1.2 % Baso % (Auto) 0.4 % Neut # (Auto) 4.02 (1.40-6.50) K/uL Lymph # (Auto) 0.67 L (1.2-3.4) K/uL [place] # (Auto) 0.35 (0.11-0.59) K/uL Eos # (Auto) 0.06 (0-0.50) K/uL Baso # (Auto) 0.02 (0-0.2) K/uL Immature Gran # (Auto) 0.01 (0.01-0.20) K/uL Sodium 138 (136-145) mmol/L Potassium 4.3 (3.5-5.1) mmol/L Chloride 108 H (98-107) mmol/L Carbon Dioxide 23 (21-32) mmol/L Anion Gap 7 (3-11) BUN 11 (6-23) mg/dl Creatinine 0.76 (0.6-1.4) mg/dl Est Cr Clr Drug Dosing 87.2 Est GFR ( Amer) 103.4 ml/min Est GFR (Non-Af Amer) 89.2 ml/min BUN/Creatinine Ratio 14.5 (10-20) Glucose 71 (70-99(Fasting)) mg/dl Estimat Average Glucose Pending Hemoglobin A1c Pending Calcium 8.1 L (8.6-10.3) mg/dl Magnesium 2.1 (1.7-2.4) mg/dl Total Bilirubin 0.6 (0.2-1.0) mg/dl AST 20 (13-39) U/L ALT 21 (7-52) U/L Alkaline Phosphatase 71 (34-104) U/L Total Protein 5.8 L D (6.0-8.3) gm/dl Albumin 3.2 L (3.4-5.0) gm/dl Globulin 2.6 (2.5-4.0) gm/dl Albumin/Globulin Ratio 1.2 (0.9-2) Triglycerides 92 (0-150) mg/dl Cholesterol 128 (0-200) mg/dl LDL Cholesterol, Calc 78 mg/dl VLDL Cholesterol, Calc 18 (0-30) mg/dl HDL Cholesterol 32 mg/dl Cholesterol/HDL Ratio 4.0 (0-5) Lipase 108 H (11-82) U/L Urine Color Urine Appearance (Clear) Urine pH (4.5-7.5) Ur Specific [place] (1.000-1.030) Urine Protein (Negative) Urine Glucose (UA) (Negative) Urine Ketones (Negative) Urine Blood (Negative) Urine Nitrite (Negative) Urine Bilirubin (Negative) Urine Urobilinogen (Negative) Ur Leukocyte Esterase (Negative) Urine WBC (Auto) (0-5) /hpf Urine RBC (Auto) (0-4) /hpf U Hyaline Cast (Auto) (0-5) /lpf U Epithel Cells (Auto) (0-5) /lpf Urine Bacteria (Auto) (Negative) 02/20/23 02/20/23 02/20/23 Range/Units 14:52 12:38 12:38 WBC 6.84 (4.8-10.8) K/ul RBC 4.77 (4.70-6.10) M/uL Hgb 14.7 (14.0-18.0) g/dl Hct 44.2 (42.0-52.0) % MCV 92.7 (80.0-100.0) fL MCH 30.8 (25.0-34.0) pg MCHC 33.3 (32.0-36.0) g/dL RDW Std Deviation 47.0 H (36.4-46.3) fL RDW Coeff of [place] 13.8 (11.5-14.5) % Plt Count 292 (130-400) K/uL MPV 9.3 L (9.4-12.4) fL Immature Gran % (Auto) 0.3 % Neut % (Auto) 78.7 % Lymph % (Auto) 13.2 % [place] % (Auto) 7.2 % Eos % (Auto) 0.3 % Baso % (Auto) 0.3 % Neut # (Auto) 5.39 (1.40-6.50) K/uL Lymph # (Auto) 0.90 L (1.2-3.4) K/uL [place] # (Auto) 0.49 (0.11-0.59) K/uL Eos # (Auto) 0.02 (0-0.50) K/uL Baso # (Auto) 0.02 (0-0.2) K/uL Immature Gran # (Auto) 0.02 (0.01-0.20) K/uL Sodium 136 (136-145) mmol/L Potassium 3.9 (3.5-5.1) mmol/L Chloride 105 (98-107) mmol/L Carbon Dioxide 25 (21-32) mmol/L Anion Gap 6 (3-11) BUN 14 (6-23) mg/dl Creatinine 0.96 (0.6-1.4) mg/dl Est Cr Clr Drug Dosing Not Reportable Est GFR ( Amer) 89.3 ml/min Est GFR (Non-Af Amer) 77.0 ml/min BUN/Creatinine Ratio 14.6 (10-20) Glucose 81 (70-99(Fasting)) mg/dl Estimat Average Glucose Hemoglobin A1c Calcium 8.8 (8.6-10.3) mg/dl Magnesium (1.7-2.4) mg/dl Total Bilirubin 0.7 (0.2-1.0) mg/dl AST 22 (13-39) U/L ALT 27 (7-52) U/L Alkaline Phosphatase 91 (34-104) U/L Total Protein 7.3 (6.0-8.3) gm/dl Albumin 4.0 (3.4-5.0) gm/dl Globulin 3.3 (2.5-4.0) gm/dl Albumin/Globulin Ratio 1.2 (0.9-2) Triglycerides (0-150) mg/dl Cholesterol (0-200) mg/dl LDL Cholesterol, Calc mg/dl VLDL Cholesterol, Calc (0-30) mg/dl HDL Cholesterol mg/dl Cholesterol/HDL Ratio (0-5) Lipase 319 H (11-82) U/L Urine Color Dark Yellow Urine Appearance Clear (Clear) Urine pH 5.5 (4.5-7.5) Ur Specific [place] 1.023 (1.000-1.030) Urine Protein Trace H (Negative) Urine Glucose (UA) Negative (Negative) Urine Ketones 1+ H (Negative) Urine Blood Negative (Negative) Urine Nitrite Negative (Negative) Urine Bilirubin 1+ H (Negative) Urine Urobilinogen Negative (Negative) Ur Leukocyte Esterase Negative (Negative) Urine WBC (Auto) 1-5 (0-5) /hpf Urine RBC (Auto) 0-4 (0-4) /hpf U Hyaline Cast (Auto) 5-10 H (0-5) /lpf U Epithel Cells (Auto) 5-10 H (0-5) /lpf Urine Bacteria (Auto) Negative (Negative)
[2023-02-21] MEDS: ENALAPRIL MALEATE 10 MG TAB PO SCH (09:31)
[2023-02-21] MEDS: MAGNESIUM OXIDE 400 MG TAB PO SCH ×2 (09:31→19:55)
[2023-02-21] MEDS: CALCIUM CARBONATE 1250MG TAB PO SCH (09:32)
[2023-02-21] MEDS: ASPIRIN 81 MG ECTAB PO SCH (09:33)
[2023-02-21] MEDS: amLODIPine BESYLATE 5 MG TAB PO SCH (09:33)
[2023-02-21 10:42] LABS: Estimated Average Glucose 120 mg/dl; Hemoglobin A1C 5.8 % (4.5-5.6)
--- NOTE | 2023-02-21 11:58 | Electrocardiogram Report ---
Test Reason : Blood Pressure : / mmHG Vent. Rate : 047 BPM Atrial Rate : 047 BPM P-R Int : 168 ms QRS Dur : 092 ms QT Int : 490 ms P-R-T Axes : 042 -02 028 degrees QTc Int : 433 ms Sinus bradycardia Possible Inferior infarct (cited on or before 15-DEC-2018) Nonspecific ST abnormality Abnormal ECG When compared with ECG of 15-DEC-2018 10:58, Nonspecific T wave abnormality, worse in Lateral leads Confirmed by Glenn Frye ([id number]) on 02/21/2023 11:58:00 AM Referred By: REFERRED SELF Confirmed By:Jose Frye
[2023-02-21] MEDS ORDERED: Nursing to Pharmacy Communication SCH (12:00)
--- NOTE | 2023-02-21 14:13 | Hospitalist Progress Note ---
Date of Service February 21, 2023 Assessment & Plan (1) Abdominal pain: (2) Acute pancreatitis: (3) Atrial fibrillation: (4) Hypertension: Plan 77-year-old male who has significant past medical history of PAF, history of aortic valve replacement in 2018, HTN, GERD who presents ED secondary to abdominal pain. Abdominal Pain Acute pancreatitis Lipase was 319 CT abd/pelvis noted question faint peripancreatic infiltration Abd USS noted small amount of sludge in gall bladder. Dilated pancreatic duct upto 6mmg LFT is normal GI evaluation noted Continue clears. Advance diet as tolerated Continue IVF Pain is controlled Will follow up with GI outpatient for EUS Hx of PAF S/p Bioprosthetic AVR Stable in sinus rhythm with rates in 50s Continue home amiodarone as OP Followed Cards down in [place], [place] Hypertension Stable Continue enalapril and norvasc DVT ppx: SQ Lovenox FULL CODE PCP: Cezar Martinez spent a total of 50 minutes coordinating, documenting and providing care for this patient excluding time spent in performance of separately billed services Admission and Anticipated Discharge Date Admission Date: February 20, 2023 Subjective Patient seen and examined Reports abd pain is much reduced Denied nausea, vomiting Tolerated clears this afternoon. Reports bloating after lunch Denied cough, chest pain, SOB, dysuria, freq, urgency Physical Exam Constitutional: + well hydrated; no acute distress Eyes: PERRL, conjunctivae normal, anicteric sclerae ENMT: external ear and nose normal, oropharynx normal Respiratory: normal respiratory effort, lungs clear to auscultation Cardiovascular: Rate/Rhythm: regular rhythm and + bradycardic S1 S2 Gastrointestinal (Abdomen): normal bowel sounds, soft, nontender, no hepatosplenomegaly Musculoskeletal: no cyanosis or clubbing, extremities motor strength 5/5 Neurologic: PERRL, EOMI, accommodation nl, no face palsy, no dysarthria Psychiatric: A+Ox3, euthymic affect Results & Data Results & Data Vital Signs (Past 12 Hours) Vital Signs Temp Pulse Resp BP Pulse Ox O2 Del Method 02/21/23 09:30 51 L 125/65 02/21/23 05:56 36.6 C 53 L 16 104/63 95 Room Air Laboratory Results Abnormal lab results 02/21/23 02/21/23 02/21/23 Range/Units 07:55 07:55 07:55 RBC 4.17 L (4.70-6.10) M/uL Hgb 12.9 L (14.0-18.0) g/dl Hct 39.0 L (42.0-52.0) % RDW Std Deviation 47.7 H (36.4-46.3) fL MPV 9.3 L (9.4-12.4) fL Lymph # (Auto) 0.67 L (1.2-3.4) K/uL Chloride 108 H (98-107) mmol/L Hemoglobin A1c 5.8 H (4.5-5.6) % Calcium 8.1 L (8.6-10.3) mg/dl Total Protein 5.8 L D (6.0-8.3) gm/dl Albumin 3.2 L (3.4-5.0) gm/dl Lipase 108 H (11-82) U/L
[2023-02-21] MEDS: AMIODARONE 200 MG TAB PO SCH (15:44)
[2023-02-21] MEDS: ENOXAPARIN INJ 40 MG/0.4 ML SYR SQ SCH (19:55)
[2023-02-22] MEDS: LACTATED RINGER'S 1,000 ML IV SCH ×4 (00:15→20:09)
[2023-02-22] MEDS: amLODIPine BESYLATE 5 MG TAB PO SCH (08:14)
[2023-02-22] MEDS: MAGNESIUM OXIDE 400 MG TAB PO SCH ×2 (08:14→20:10)
[2023-02-22] MEDS: ENALAPRIL MALEATE 10 MG TAB PO SCH (08:14)
[2023-02-22] MEDS: CALCIUM CARBONATE 1250MG TAB PO SCH (08:14)
[2023-02-22] MEDS: ASPIRIN 81 MG ECTAB PO SCH (08:15)
[2023-02-22 08:53] LABS: Hemoglobin 14.4 g/dl (14.0-18.0); Mean Corpuscular Hemoglobin 30.7 pg (25.0-34.0); Mean Corpuscular Hgb Conc 33.5 g/dL (32.0-36.0); Mean Corpuscular Volume 91.7 fL (80.0-100.0); Mean Platelet Volume 9.4 fL (9.4-12.4); Platelet Count 265 K/uL (130-400); RDW Coefficient of Variation 13.9 % (11.5-14.5); RDW Standard Deviation 46.7 fL (36.4-46.3); Red Blood Count 4.69 M/uL (4.70-6.10); White Blood Count 4.61 K/ul (4.8-10.8)
[2023-02-22] MEDS: LANSOPRAZOLE 30 MG PO SCH (09:12)
[2023-02-22 09:26] LABS: BUN Creatinine Ratio 7.6 (10-20); Calcium 8.5 mg/dl (8.6-10.3); Creatinine Clr Calc Pharmacy 83.9 ml/min; Est GFR (African American) 101.8 ml/min; Est GFR (Non-African American) 87.8 ml/min; Magnesium 2.1 mg/dl (1.7-2.4); Phosphorus 2.6 mg/dl (2.5-4.9); Potassium 3.7 mmol/L (3.5-5.1)
[2023-02-22] MEDS: AMIODARONE 200 MG TAB PO SCH (15:46)
--- NOTE | 2023-02-22 17:32 | Hospitalist Progress Note ---
Date of Service February 22, 2023 Assessment & Plan (1) Abdominal pain: (2) Acute pancreatitis: (3) Atrial fibrillation: (4) Hypertension: Plan 77-year-old male who has significant past medical history of PAF, history of aortic valve replacement in 2018, HTN, GERD who presents ED secondary to abdominal pain. Abdominal Pain Acute pancreatitis Lipase was 319 CT abd/pelvis noted question faint peripancreatic infiltration Abd USS noted small amount of sludge in gall bladder. Dilated pancreatic duct upto 6mmg LFT is normal GI evaluation noted Advance diet as tolerated, is tolerating diet well. Continue IVF Pain is controlled Will follow up with GI outpatient for EUS Hx of PAF S/p Bioprosthetic AVR Stable in sinus rhythm with rates in 50s Continue home amiodarone as OP Followed Cards down in [place], [place] Hypertension Stable Continue enalapril and norvasc DVT ppx: SQ Lovenox FULL CODE PCP: Cezar Avila DC, patient would like to go home tomorrow. Admission and Anticipated Discharge Date Admission Date: February 20, 2023 Subjective Patient seen and examined Reports abd pain is much reduced to almost none. Denied nausea, vomiting Tolerated soft diet this afternoon. Can be discharged but patient would like to go home tomorrow. Denied cough, chest pain, SOB, dysuria, freq, urgency Physical Exam Physical Exam: Constitutional:I + well hydrated; n o acute distress Eyes: PERRL, conjunctiva e normal, anicteri c sclerae ENMT: external ear and n ose normal, oropha rynx normal Respiratory: normal respiratory effort, lungs joi ar to auscultation Cardiovascular:I Rate/Rhythm: regul ar rhythm and + br adycardic S1 S2 Gastrointestinal ( Abdomen): normal bowel sound s, soft, nontender , no hepatosplenom egaly Musculoskeletal: no cyanosis or clu bbing, extremities motor strength 5/ 5 Neurologic: PERRL, EOMI, accom modation nl, no fa ce palsy, no dysar thria Psychiatric:I A+Ox3, euthymic af fect Results & Data Results & Data Vital Signs (Past 12 Hours) Vital Signs Temp Pulse Resp BP Pulse Ox O2 Del Method 02/22/23 15:26 36.5 C 52 L 18 131/77 93 Room Air 02/22/23 08:13 50 L 02/22/23 07:56 36.6 C 48 L 20 127/71 97 Room Air
[2023-02-22] MEDS: ENOXAPARIN INJ 40 MG/0.4 ML SYR SQ SCH (20:10)
[2023-02-22] MEDS ORDERED: Nursing to Pharmacy Communication SCH (20:30)
[2023-02-23] MEDS: LACTATED RINGER'S 1,000 ML IV SCH (02:49)
[2023-02-23] MEDS: LANSOPRAZOLE 30 MG PO SCH (08:17)
[2023-02-23] MEDS: MAGNESIUM OXIDE 400 MG TAB PO SCH (08:17)
[2023-02-23] MEDS: CALCIUM CARBONATE 1250MG TAB PO SCH (08:18)
[2023-02-23] MEDS: ENALAPRIL MALEATE 10 MG TAB PO SCH (08:18)
[2023-02-23] MEDS: ASPIRIN 81 MG ECTAB PO SCH (08:18)
[2023-02-23] MEDS: amLODIPine BESYLATE 5 MG TAB PO SCH (08:18)
--- NOTE | 2023-02-23 13:15 | Discharge Summary ---
Date of Service February 23, 2023 Admission HPI Per Admitting Provider This is a 77-year-old male who has significant past medical history of PAF, history of aortic valve replacement in 2018, HTN, GERD who presents ED secondary to abdominal pain. Patient's is at bedside. He states on February 09 he contracted a viral gastroenteritis in which his also caught. This was associated with watery diarrhea and fever of 100.5. He did do a COVID home test which was negative. Since then he has not felt quite right. He has been having increased abdominal bloating, belching, constipation and abdominal discomfort postprandial. He has had generalized abdominal discomfort in his left upper abdomen which is constant, but worsens after meals. Pain also has been radiating to his back. It does not seem to be positional. He does report fever last evening of 100.1, but this morning was 98.6 he has lost 30 pounds in the last 3 months which has been intentional. He further complains of nausea but denies any vomiting. He denies any lightheadedness, dizziness, chest pain, shortness of breath, URI symptoms, hematemesis, melena or hematochezia. He is urinating with difficulty but felt urine was very dark. He denies any dysuria, increased urgency or frequency with urination or diarrhea. He had a very small bowel movement today. In ED CBC and CMP was generally unremarkable. He did have mild elevated lipase at 319. His LFTs were normal. CT abdomen pelvis concerning for faint peripancreatic infiltration and cardiomegaly. Patient denies any prior history of gallbladder issues. He tries to drink alcohol but has not drank in the last 2 to 3 weeks. Typically drinks 3 to 4 glasses of wine weekly. Admission Exam Per Admitting Provider Constitutional: WD/WN, vitals as above, NAD, sitting up in bed, pleasant, conversing easily Head: Normocephalic, Atraumatic Eyes: PERRL, conjunctivae normal, anicteric sclerae ENMT: external ear and nose normal, oropharynx normal Neck: trachea midline, no thyromegaly normal visual inspection Respiratory: normal respiratory effort, lungs clear to auscultation, no wheeze, rales, rhonchi. Normal insp/exp effort, no accessory muscle use Cardiovascular: RRR, no murmur, no edema Vessels: no JVD or carotid bruit Chest: normal inspection of chest Abdomen: normal bowel sounds, distended but soft, TTP LUQ, no rebound, guarding,no hepatosplenomegaly Musculoskeletal: no cyanosis or clubbing, extremities motor strength 5/5 Skin: no rashes, warm and dry normal turgor Neurologic: PERRL, EOMI, accommodation nl, no face palsy, no dysarthria CN's II-XI intact bilaterally and moves all extremities Psychiatric: A+Ox3, euthymic affect : deferred Principal Diagnosis Acute pancreatitis Discharge Exam Constitutional:I + well hydrated; n o acute distress Eyes: PERRL, conjunctiva e normal, anicteri c sclerae ENMT: external ear and n ose normal, oropha rynx normal Respiratory: normal respiratory effort, lungs joi ar to auscultation Cardiovascular:I Rate/Rhythm: regul ar rhythm and + br adycardic S1 S2 Gastrointestinal ( Abdomen): normal bowel sound s, soft, nontender , no hepatosplenom egaly Musculoskeletal: no cyanosis or clu bbing, extremities motor strength 5/ 5 Neurologic: PERRL, EOMI, accom modation nl, no fa ce palsy, no dysar thria Psychiatric: A+Ox3, euthymic af fect Discharge Data Allergies Allergy/AdvReac Type Severity Reaction Status Date / Time latex Allergy Intermediate swelling Verified 02/20/23 15:37 on contact ragweed pollen Allergy Intermediate swelling Verified 02/20/23 15:37 tetracycline Allergy Intermediate hives Verified 02/20/23 15:37 Consultations 02/20/23 16:21 ED Decision to Admit Stat 02/20/23 21:19 Consult Gastroenterology Routine Ordered Studies 02/20/23 14:44 CT Abd and Pelvis [CT abd pelvis IV con only] Stat 02/20/23 17:39 US abdomen limited Stat Hospital Course (1) Abdominal pain: (2) Acute pancreatitis: (3) Atrial fibrillation: (4) Hypertension: Plan 77-year-old male who has significant past medical history of PAF, history of aortic valve replacement in 2018, HTN, GERD who presents ED secondary to abdominal pain. He was managed for the following: Abdominal Pain Acute pancreatitis Lipase was 319 CT abd/pelvis noted question faint peripancreatic infiltration Abd USS noted small amount of sludge in gall bladder. Dilated pancreatic duct upto 6mmg LFT is normal GI evaluation noted Advance diet as tolerated, is tolerating soft diet well. Pain is controlled Patient to follow up with GI outpatient for EUS. Patient is made aware. Hx of PAF S/p Bioprosthetic AVR Stable in sinus rhythm with rates in 50s Continue home amiodarone as OP Followed Cards down in [place], [place] Patient plans to follow-up with cardiology locally. Patient reports he was on Eliquis in the past but was discontinued, patient not very much sure why. Patient requested to bring up the discussion of Eliquis with his cardiology upon his next visit. Hypertension Stable Continue enalapril and norvasc DVT ppx: SQ Lovenox FULL CODE PCP: Cezar Patient being discharged home with following instruction at the point of discharge: Follow-up with your primary care physician within a week time and likely you will need labs CBC/CMP/magnesium/phosphorus. Follow-up with your GI doctor as an outpatient, for possible outpatient endoscopic ultrasound evaluation. Follow-up with your cardiology as prior. Maintain soft diet for a week, slowly advance to your regular consistency diet. Take your medications as prescribed. Home Health Attestation I certify that this patient is under my care and that I, or a physicians business banking sales assistant working with me, had a face to-face encounter that meets the home health miyf-hb-aait encounter requirements with this patient. The encounter with the patient was in whole, or in part, for the following medical condition, which is the primary reason for home health care (list medical condition): I certify that, based on my findings, the following services are medically necessary home health services: My clinical findings support the need for the above services because: Further, I certify that my clinical findings support that this patient is homebound (i.e. absences from home require considerable and taxing effort and are for medical reasons or rastafarian services or infrequently or of short duration when for other reasons) because: Certification for Home Health Services: Based on the above findings, I certify that this patient is confined to the home and needs intermittent assisted care, physical therapy and/or speech therapy or continues to need occupational therapy. The patient is under my care, and I have initiated the establishment of the plan of care. This patient will be followed by a physician who will periodically review the plan of care. Total Time Total Time Spent Total Time Spent (In Minutes): 45 Discharge Plan Discharge Items Patient Disposition: Home - Self-Care Reason For Visit: PANCREATITIS Discharge Diagnosis: Acute pancreatitis Activity: Resume your previous activity Non-emergency contact: Primary Care Provider Call non-emergency contact if: you have any medication questions, your symptoms worsen and your temperature is above 101 Follow-up/Referrals: Ana Robb MD [Primary Care Provider] - 02/27/23 8:20 am (Date & Time 02/27/2023 8:20 AM Provider Ana Robb MD Department General Internal Medicine [facility] ) Diet: Heart Healthy Diet Texture: Dental soft (bite-sized) Addtl Attending Provider Instructions: Follow-up with your primary care physician within a week time and likely you will need labs CBC/CMP/magnesium/phosphorus. Follow-up with your GI doctor as an outpatient, for possible outpatient endoscopic ultrasound evaluation. Follow-up with your cardiology as prior. Maintain soft diet for a week, slowly advance to your regular consistency diet. Take your medications as prescribed. Pending Studies at Discharge: No Stand-Alone Forms: [facility], Smoking Cessation Medications and DC Order Prescriptions: Continued enalapril maleate 20 mg tablet 20 mg PO DAILY amlodipine [Norvasc] 10 mg Tablet 10 mg PO DAILY amoxicillin 500 mg Capsule 2,000 mg PO DIRECTED Rx Instructions: TAKE 1 HR PRIOR TO DENTAL PROCEDURE calcium carbonate [Calcium 600] 600 mg calcium (1,500 mg) Tablet 600 mg PO DAILY vitamin B complex [B-Complex] Tablet 1 tab PO DAILY Macey-C with Bioflavonoids 500-200 mg Tablet 1 tab PO DAILY magnesium oxide 400 mg magnesium Tablet 400 mg PO BID amiodarone 200 mg tablet 200 mg PO DAILY aspirin [Aspir-Low] 81 mg Tablet,Delayed Release (Dr/Ec) 81 mg PO DAILY lansoprazole 30 mg capsule,delayed release(DR/EC) 30 mg PO DAILY [id number]-gahe [Qwcguw-Leugv-XOB (with antiox)] 500-500-66.7 mg Tablet 2 tab PO DAILY Discharge Orders: Discharge Order (Routine); Ordered 02/23/23 Ordered By: Garrett Diego Admission Data Admit Date/Time: 02/20/23 16:52 Attending Provider: Garrett Diego Admit Provider: Marilu Ram Primary Care Provider: Ana Robb Other Providers: Marilu Ram ; Pino Foster
== END 2023-02-23 13:54 | disposition home or self-care (01) | DRG 440 ==
LOC: ED 12:18 → SUATTDRO 16:52 → 3W 16:52

== ENCOUNTER 2025-04-25 16:35 | Observation (INO) ==
[2025-04-25 17:24] LABS: Hematocrit (blood only) 44.0 % (42.0-52.0); Hemoglobin 14.5 g/dl (14.0-18.0); Immature Granulocytes # (auto) 0.01 K/uL (0.01-0.20); Immature Granulocytes % (auto) 0.2 %; Mean Corpuscular Hemoglobin 30.2 pg (25.0-34.0); Mean Corpuscular Volume 91.7 fL (80.0-100.0); Platelet Count 289 K/uL (130-400); RDW Standard Deviation 49.6 fL (36.4-46.3); Red Blood Count 4.80 M/uL (4.70-6.10); White Blood Count 4.93 K/ul (4.8-10.8)
[2025-04-25 17:51] LABS: INR 1.0 (0.9-1.1); Partial Thromboplastin Time 29 Seconds (21-31); Prothrombin Time 10.9 Seconds (9.0-12.0)
--- NOTE | 2025-04-25 17:56 | XRay Report ---
Chest radiograph, one view History: Chest pain Comparison: None Findings: Single AP view of the chest performed. No focal consolidation or pleural effusion. No pneumothorax. The cardiomediastinal silhouette is within normal limits. Normal pulmonary vascularity. No evidence for lymphadenopathy. No visualized bony or soft tissue abnormality. Impression: Normal chest radiograph Electronically signed by Glenn Austin 04-25-2025 5:56 PM
[2025-04-25 18:02] LABS: Alanine Aminotransferase 36 U/L (7-52); Albumin Globulin Ratio 1.3 (0.9-2); Albumin Level 3.6 gm/dl (3.4-5.0); Alkaline Phosphatase 164 U/L (34-104); Anion Gap 6 (3-11); Bilirubin,Total 0.3 mg/dl (0.2-1.0); Blood Urea Nitrogen 13 mg/dl (6-23); Calcium 8.1 mg/dl (8.6-10.3); Carbon Dioxide 25 mmol/L (21-32); Chloride 105 mmol/L (98-107); Globulin 2.8 gm/dl (2.5-4.0); Glucose 111 mg/dl (70-99(Fasting)); Lipase 11 U/L (11-82); Magnesium 2.2 mg/dl (1.7-2.4); Sodium 136 mmol/L (136-145); Thyroid Stimulating Hormone 2.270 uIu/ml (0.300-4.500); Total Protein 6.4 gm/dl (6.0-8.3)
--- NOTE | 2025-04-25 18:15 | Emergency Department Note ---
Impression & Plan Palpitations, Atrial fibrillation, Elevated troponin, Hypocalcemia ED Provider Note NAME: LANCE TORRES AGE: 79 SEX: M : 1945 ARRIVES VIA: Walk-In INFORMANT: [Patient][family] ED PROVIDER(S): [Venkat Leggett MD] CHIEF COMPLAINT: Cardiac assessment HISTORY OF PRESENT ILLNESS: Patient is a 79-year-old male who presents to the ER with palpitations that he noticed within the last 2 hours. The patient states that he was checking his blood pressure and his machine told him his heart was irregular. He could feel the irregularity. He had no chest pain, he was not short of breath. 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 He took his last dose of Lovenox today. He is not on any other type of oral blood thinning agent. He is on amiodarone though for tachycardia, he does not know the reason for the tachycardia. The patient has been monitoring his blood pressure because he was taken off of Vasotec. His blood pressure has been doing well off this medication. The patient cannot recall ever being told he had A-fib or a flutter. PMHx/PSHx/Social Hx: See Below PHYSICAL EXAM: GENERAL: Patient is in no acute distress. HEENT: No acute trauma, normocephalic atraumatic, mucous membranes moist, no nasal congestion. NECK: No stridor, no adenopathy, no meningismus, trachea is midline. LUNGS: Clear to auscultation bilaterally, no wheeze, no rhonchi, breath sounds equal. HEART: Normal rate, 2/6 systolic murmur, irregular rhythm. ABDOMEN: Soft, nontender, no peritonitis. EXTREMITIES: No cyanosis, full range of motion of all the joints without pain or difficulty. NEUROLOGIC: Oriented x 3, no acute motor or sensory deficits, no focal weakness. SKIN: No jaundice, no diaphoresis. DIFFERENTIAL DIAGNOSIS: A-fib or a flutter, SVT, electrolyte imbalance, among others. EMERGENCY DEPARTMENT PROCEDURES: MEDICAL DECISION MAKING: There is no leukocytosis or concerning anemia. There is a normal platelet count. No coagulopathy. Calcium was low at 8.1. Potassium testing is still pending has multiple redraws were needed. No renal failure. No concerning liver enzyme elevation. No evidence for pancreatitis. The patient appeared to be in a euthyroid state. ECG showed atrial fibrillation initially however, a short time after my initial assessment, the patient converted to a sinus bradycardia. Cardiac enzyme testing is slightly elevated. This troponin elevation could be secondary to cardiac injury or potential mismatch from his rhythm disturbance. Chest x-ray did not show mediastinal widening, pneumonia or pneumothorax. Patient was given IV calcium. Patient did spontaneously convert from A-fib to sinus rhythm during his ED stay. He has no current complaints. I did speak with [facility] cardiology. The patient's current situation is quite complex as he just had Whipple surgery. He is going to require monitoring, medication adjustment potentially, anticoagulation more long-term. I did speak with the patient and family. Hospitalization for now is indicated. Case management was contacted, the on-call hospitalist was consulted. Prior/Outside records/notes reviewed: None ECG per my interpretation: Indication was palpitations. The ECG shows atrial fibrillation with a rate of 65. There is some baseline artifact and an old inferior infarct. There is no ST elevation, no PVCs. The QTc is 432. Repeat ECG per my interpretation: Indication was palpitations. The ECG shows a sinus bradycardia with a rate of 53. There is an old inferior infarct. There is no ST elevation, no PVCs. QTc was 427. Compared to the earlier ECG, the atrial fibrillation has resolved. Continuous Cardiac Monitoring per my interpretation: An order was placed for continuous cardiac monitoring. The monitor shows a rate of 52 with sinus pericardia. Imaging/x-ray results per my interpretation: Chest x-ray does not show CHF or pneumonia. Chronic Medical/Social conditions affecting care: Advanced age. Care/Management discussed with: [facility] cardiology-Dr. Serrano. Case management and the on-call hospitalist. Level of care consideration(s): After review of the information above and other included data: --I believe the patient requires escalation of care to admission DISPOSITION: Admission Past Med/Surg History Problem List Hypocalcemia (Acute) Elevated troponin (Acute) Atrial fibrillation (Acute) Palpitations (Acute) Acute pancreatitis (Acute) Abdominal pain (Acute) Atrial fibrillation Hypertension (Chronic) Bronchitis (Acute) GERD (gastroesophageal reflux disease) (Chronic) Concussion (Acute) Encounter for removal of sutures (Acute) Facial laceration (Acute) Left rib fracture (Acute) Right radial head fracture (Acute) Medical History Aortic valve stenosis GERD (gastroesophageal reflux disease) HTN (hypertension) Surgical History Hx of hernia repair age 7 History of hip replacement b/l Hx of aortic valve replacement done in [place], [place] Dr. Zach Wood Family History Other Family history non-contributory Social History Smoking Status: Never smoker Hx Alcohol Use: Yes Alcohol type: wine Hx Substance Use: No Preferred Language: Luxembourgish Communication Ability: Effective General Machinist Required: No Beliefs That Will Affect Care: None marital status: Current Living Situation: Spouse current occupational status: retired Feels Safe at Home: Yes Assistive Devices: Bedside Commode, Cane and Walker Allergies Allergies Allergy/AdvReac Type Severity Reaction Status Date / Time latex Allergy Intermediate swelling Verified 02/20/23 15:37 on contact ragweed pollen Allergy Intermediate swelling Verified 02/20/23 15:37 tetracycline Allergy Intermediate hives Verified 02/20/23 15:37 Home Meds Home Medications Medication Instructions Recorded Confirmed ascorbate calcium-bioflavonoid 500 1 tab PO DAILY 12/15/18 04/25/25 mg-200 mg tablet (Macey-C with Bioflavonoids) calcium carbonate (Calcium 600) 600 mg PO BID 12/15/18 04/25/25 enalapril maleate 20 mg tablet 20 mg PO DAILY 12/15/18 04/25/25 magnesium oxide 400 mg PO BID 12/15/18 04/25/25 vitamin B complex (B-Complex 1 tab PO Q OTHER DAY 12/15/18 04/25/25 tablet) amiodarone 200 mg tablet 100 mg PO DAILY 02/20/23 04/25/25 aspirin 81 mg tablet,delayed 81 mg PO DAILY 02/20/23 04/25/25 release wlwpeqnuumj-sgw-xnqgtorjy-hrb 2 tab PO DAILY 02/20/23 04/25/25 149-hyalur 500 mg-500 mg-66.7 mg tablet (Alxuidjbrff-Lpoubbqvayu-PYP (with antiox)) lansoprazole 30 mg capsule,delayed 30 mg PO DAILY 02/20/23 04/25/25 release amlodipine 5 mg tablet 5 mg PO DAILY 04/25/25 04/25/25 docusate sodium 100 mg capsule 100 mg PO DAILY 04/25/25 04/25/25 sennosides 8.6 mg tablet 8.6 mg PO DAILY 04/25/25 04/25/25 Results & Data (ED) Vital Signs Vital Signs - 24 hr 04/25/25 16:41 04/25/25 17:00 04/25/25 17:00 Temperature 36.9 C Temperature Source Temporal Artery Scan Pulse Rate 55 L 52 L 53 L Pulse Rate from SpO2 Sensor Respiratory Rate 18 18 Respiratory Depth Normal Blood Pressure 150/86 H Blood Pressure Mean 107 Blood Pressure Position Sitting Pulse Oximetry 97 Oxygen Delivery Method Room Air Sepsis Recent Fever Within 48 Hours No Sepsis New/Unexplained Change in Mental Status No Sepsis Action Taken by Nursing No Action Required 04/25/25 17:09 04/25/25 18:00 04/25/25 18:30 Temperature Temperature Source Pulse Rate 63 Pulse Rate from SpO2 Sensor 61 Respiratory Rate 19 Respiratory Depth Blood Pressure 123/71 133/80 Blood Pressure Mean 89 94 Blood Pressure Position Pulse Oximetry 97 Oxygen Delivery Method Room Air Sepsis Recent Fever Within 48 Hours Sepsis New/Unexplained Change in Mental Status Sepsis Action Taken by Nursing 04/25/25 18:33 04/25/25 19:06 04/25/25 19:30 Temperature Temperature Source Pulse Rate 62 63 47 L Pulse Rate from SpO2 Sensor 62 63 47 L Respiratory Rate 18 19 17 Respiratory Depth Blood Pressure 146/81 H Blood Pressure Mean 102 Blood Pressure Position Pulse Oximetry 93 95 95 Oxygen Delivery Method Room Air Sepsis Recent Fever Within 48 Hours Sepsis New/Unexplained Change in Mental Status Sepsis Action Taken by Nursing 04/25/25 20:00 04/25/25 20:30 04/25/25 20:55 Temperature Temperature Source Pulse Rate 57 L 56 L 55 L Pulse Rate from SpO2 Sensor 57 L 55 L Respiratory Rate 24 21 Respiratory Depth Blood Pressure 138/79 128/85 Blood Pressure Mean 98 99 Blood Pressure Position Pulse Oximetry 96 94 Oxygen Delivery Method Sepsis Recent Fever Within 48 Hours Sepsis New/Unexplained Change in Mental Status Sepsis Action Taken by Nursing 04/25/25 21:30 04/25/25 22:00 04/25/25 23:00 Temperature Temperature Source Pulse Rate 55 L 54 L 68 Pulse Rate from SpO2 Sensor 56 L Respiratory Rate 17 18 24 Respiratory Depth Blood Pressure 156/89 H 152/90 H 145/94 H Blood Pressure Mean 111 118 115 Blood Pressure Position Pulse Oximetry 94 95 94 Oxygen Delivery Method Sepsis Recent Fever Within 48 Hours Sepsis New/Unexplained Change in Mental Status Sepsis Action Taken by Group Home Medications Current Medication List: was personally reviewed by me Laboratory Data Attestation: I reviewed the patient's lab results. 04/25/25 17:01 04/25/25 17:01 Lab Results 04/25/25 04/25/25 Range/Units 17:01 19:52 WBC 4.93 (4.8-10.8) K/ul RBC 4.80 (4.70-6.10) M/uL Hgb 14.5 (14.0-18.0) g/dl Hct 44.0 (42.0-52.0) % MCV 91.7 (80.0-100.0) fL MCH 30.2 (25.0-34.0) pg MCHC 33.0 (32.0-36.0) g/dL RDW Std Deviation 49.6 H (36.4-46.3) fL RDW Coeff of Willa 14.6 H (11.5-14.5) % Plt Count 289 (130-400) K/uL MPV 8.9 L (9.4-12.4) fL Immature Gran % (Auto) 0.2 % Neut % (Auto) 65.9 % Lymph % (Auto) 19.1 % [place] % (Auto) 9.9 % Eos % (Auto) 4.5 % Baso % (Auto) 0.4 % Neut # (Auto) 3.25 (1.40-6.50) K/uL Lymph # (Auto) 0.94 L (1.20-3.40) K/uL [place] # (Auto) 0.49 (0.11-0.59) K/uL Eos # (Auto) 0.22 (0.00-0.50) K/uL Baso # (Auto) 0.02 (0.00-0.20) K/uL Immature Gran # (Auto) 0.01 (0.01-0.20) K/uL PT 10.9 (9.0-12.0) Seconds INR 1.0 (0.9-1.1) APTT 29 (21-31) Seconds PTT Ratio 1.1 Sodium 136 (136-145) mmol/L Potassium TNP Cancelled Chloride 105 (98-107) mmol/L Carbon Dioxide 25 (21-32) mmol/L Anion Gap 6 (3-11) BUN 13 (6-23) mg/dl Creatinine 0.75 (0.6-1.4) mg/dl Est Cr Clr Drug Dosing Not Reportable eGFR 92.94 BUN/Creatinine Ratio 17.3 (10-20) Glucose 111 H (70-99(Fasting)) mg/dl Calcium 8.1 L (8.6-10.3) mg/dl Magnesium 2.2 (1.7-2.4) mg/dl Total Bilirubin 0.3 (0.2-1.0) mg/dl AST TNP Cancelled ALT 36 (7-52) U/L Alkaline Phosphatase 164 H (34-104) U/L Troponin I High Sens 21.0 H 22.1 H (0-20) pg/ml Total Protein 6.4 (6.0-8.3) gm/dl Albumin 3.6 (3.4-5.0) gm/dl Globulin 2.8 (2.5-4.0) gm/dl Albumin/Globulin Ratio 1.3 (0.9-2) Lipase 11 (11-82) U/L TSH 2.270 (0.300-4.500) uIu/ml Administered Medications Discontinued Medications Calcium Gluconate () 1,000 mg in 60 mls @ 240 mls/hr IV NOW STA Stop: 04/25/25 18:35 Last Infusion: 04/25/25 18:49 Dose: Infused Documented By: ANN MARIE Admin: 04/25/25 18:31 Dose: 240 mls/hr Documented By: CAP Imaging Data Radiologist's Impression: Chest X-Ray 04/25/25 16:53 Chest radiograph, one view History: Chest pain Comparison: None Findings: Single AP view of the chest performed. No focal consolidation or pleural effusion. No pneumothorax. The cardiomediastinal silhouette is within normal limits. Normal pulmonary vascularity. No evidence for lymphadenopathy. No visualized bony or soft tissue abnormality. Impression: Normal chest radiograph Electronically signed by Glenn Austin 04-25-2025 5:56 PM Discharge Plan Visit Data Chief Complaint: Cardiac Assessment Stated Complaint: IRREGULAR HEART BEAT ED Provider: Venkat Leggett Discharge Problem: Palpitations, Atrial fibrillation, Elevated troponin, Hypocalcemia Patient Disposition: Admitted As Inpatient Condition: Fair Forms Stand Alone Forms: My [facility] [place] Prescriptions Prescriptions: No Action enalapril maleate 20 mg tablet 20 mg PO DAILY Patient Comments: 04/25- pt states he stopped taking med until further notice by recommendation of his surgeon due to a surgery he had 4 wks ago will follow up with primary. calcium carbonate [Calcium 600] 600 mg calcium (1,500 mg) Tablet 600 mg PO BID vitamin B complex [B-Complex] Tablet 1 tab PO Q OTHER DAY Patient Comments: 04/25- pt states he alternates with vitamin d 25mcg Macey-C with Bioflavonoids 500-200 mg Tablet 1 tab PO DAILY magnesium oxide 400 mg magnesium Tablet 400 mg PO BID amiodarone 200 mg tablet 100 mg PO DAILY Patient Comments: 04/25-pt states he has been taking half a tab for a dose of 100mg for 9 months aspirin 81 mg Tablet,Delayed Release (Dr/Ec) 81 mg PO DAILY lansoprazole 30 mg capsule,delayed release(DR/EC) 30 mg PO DAILY vaoxpruy-wdk-lglpe-fpl457-vdpm [Zpcaer-Ejjys-XPJ (with antiox)] 500-500-66.7 mg Tablet 2 tab PO DAILY sennosides 8.6 mg tablet 8.6 mg PO DAILY amlodipine 5 mg tablet 5 mg PO DAILY docusate sodium 100 mg capsule 100 mg PO DAILY Patient Comments: 04/25 - pt states he takes Colace in the morning along with another OTC stool softener at dinner time. Referrals Referrals: Ana Robb MD [Primary Care Provider] - Discharge Problem: Atrial fibrillation Qualifiers: Atrial fibrillation type: unspecified Qualified Code(s): I48.91 - Unspecified atrial fibrillation
[2025-04-25] MEDS: CALCIUM GLUCONATE 1,000 MG/60 ML BAG IV STA (18:31)
[2025-04-25 23:35] LABS: Potassium 4.0 mmol/L (3.5-5.1)
--- NOTE | 2025-04-25 23:37 | History & Physical Report ---
Date of Service April 25, 2025 Assessment & Plan (1) Atrial fibrillation: Plan: 79-year-old male with past medical history significant for hypomagnesia, dyslipidemia, IPMN, hypertension, GERD, spondylolisthesis, osteoporosis, , history of pancreatitis, status post aortic valve replacement with bovine bioprosthesis in 2017 for progressive calcific aortic stenosis, paroxysmal atrial fibrillation postoperatively after AVR on chronic amiodarone therapy, borderline tachybradycardia syndrome presents with A-fib. About 4 weeks ago patient had Whipple's procedure for IPMN. States since last 4 weeks he is on Lovenox shots for DVT prophylaxis and he completed the prophylaxis today. During Whipple's procedure Vasotec was held and patient was advised to check blood pressure daily. His blood pressure has been running okay and he did not resume the Vasotec. Today when checking his blood pressure his blood pressure monitor showed his heart rate was irregular. When he checked his carotid pulse patient noticed irregular heartbeat which concerned him and came to the ER. Denies any dizziness. Denies any chest pain or shortness of breath. No nausea. No sweating. No cough. No runny nose or sore throat. Appetite is okay. Has some abdominal soreness from surgery. Normal bowel and bladder movements. Ambulating okay in the house. Afebrile. Currently resting comfortably and hemodynamically stable. In the ER when he came in, he was in A-fib but then converted to sinus bradycardia in the ER. A-fib History of paroxysmal atrial fibrillation after bioprosthetic valve replacement and on amiodarone therapy History of borderline tachybradycardia syndrome Currently rates under control Not on anticoagulation On aspirin Will monitor on telemetry Echocardiogram Consult cardiology in a.m. for further recommendations Hypertension On amlodipine Vasotec on hold since Whipples surgery 4 weeks ago Will monitor blood pressure GERD on lansoprazole IPMN Status post Whipple's procedure Follow-up as scheduled Hypomagnesia Continue supplement Hypocalcemia on calcium supplements Follow labs DVT prophylaxis SCDs Disposition Telemetry Full code. History of Present Illness Chief Complaint: A-fib Primary Care Provider: Ana Robb MD 79-year-old male with past medical history significant for hypomagnesia, dyslipidemia, IPMN, hypertension, GERD, spondylolisthesis, osteoporosis, , history of pancreatitis, status post aortic valve replacement with bovine bioprosthesis in 2017 for progressive calcific aortic stenosis, paroxysmal atrial fibrillation postoperatively after AVR on chronic amiodarone therapy, borderline tachybradycardia syndrome presents with A-fib. About 4 weeks ago patient had Whipple's procedure for IPMN. States since last 4 weeks he is on Lovenox shots for DVT prophylaxis and he completed the prophylaxis today. During Whipple's procedure Vasotec was held and patient was advised to check blood pressure daily. His blood pressure has been running okay and he did not resume the Vasotec. Today when checking his blood pressure his blood pressure m onitor showed his heart rate was irregular. When he checked his carotid pulse patient noticed irregular heartbeat which concerned him and came to the ER. Denies any dizziness. Denies any chest pain or shortness of breath. No nausea. No sweating. No cough. No runny nose or sore throat. Appetite is okay. Has some abdominal soreness from surgery. Normal bowel and bladder movements. Ambulating okay in the house. Afebrile. Currently resting comfortably and hemodynamically stable. In the ER when he came in, he was in A-fib but then converted to sinus bradycardia in the ER. Past medical history. As mentioned above Past surgical history. Colonoscopy. EGD with endoscopic ultrasound. Bilateral cataracts. Bioprosthetic arctic valve replacement. Bilateral total hip replacement. Whipple's procedure. Social history . No smoking. No alcohol currently. No drug use. Family history. Mother had arthritis. Stroke and cardiac. Hypertension. Father from burst artery in the brain. Allergies Allergy/AdvReac Type Severity Reaction Status Date / Time latex Allergy Intermediate swelling Verified 02/20/23 15:37 on contact ragweed pollen Allergy Intermediate swelling Verified 02/20/23 15:37 tetracycline Allergy Intermediate hives Verified 02/20/23 15:37 Home Medications Medication Instructions Recorded Confirmed Type ascorbate calcium-bioflavonoid 500 1 tab PO DAILY 12/15/18 04/25/25 History mg-200 mg tablet ([place]-C with Bioflavonoids) calcium carbonate (Calcium 600) 600 mg PO BID 12/15/18 04/25/25 History enalapril maleate 20 mg tablet 20 mg PO DAILY 12/15/18 04/25/25 History magnesium oxide 400 mg PO BID 12/15/18 04/25/25 History vitamin B complex (B-Complex 1 tab PO Q OTHER DAY 12/15/18 04/25/25 History tablet) amiodarone 200 mg tablet 100 mg PO DAILY 02/20/23 04/25/25 History aspirin 81 mg tablet,delayed 81 mg PO DAILY 02/20/23 04/25/25 History release ojwqavqlvdt-xet-vxgfzbhxg-hrb 2 tab PO DAILY 02/20/23 04/25/25 History 149-hyalur 500 mg-500 mg-66.7 mg tablet (Veyopwgtizj-Nzekkdpoiok-VPP (with antiox)) lansoprazole 30 mg capsule,delayed 30 mg PO DAILY 02/20/23 04/25/25 History release amlodipine 5 mg tablet 5 mg PO DAILY 04/25/25 04/25/25 History docusate sodium 100 mg capsule 100 mg PO DAILY 04/25/25 04/25/25 History sennosides 8.6 mg tablet 8.6 mg PO DAILY 04/25/25 04/25/25 History Past Med/Surg History Problem List Hypocalcemia (Acute) Elevated troponin (Acute) Atrial fibrillation (Acute) Palpitations (Acute) Acute pancreatitis (Acute) Abdominal pain (Acute) Atrial fibrillation Hypertension (Chronic) Bronchitis (Acute) GERD (gastroesophageal reflux disease) (Chronic) Concussion (Acute) Encounter for removal of sutures (Acute) Facial laceration (Acute) Left rib fracture (Acute) Right radial head fracture (Acute) Medical History Aortic valve stenosis GERD (gastroesophageal reflux disease) HTN (hypertension) Surgical History Hx of hernia repair age 7 History of hip replacement b/l Hx of aortic valve replacement done in [place], [place] Dr. Zach Wood Family History Other Family history non-contributory Social History Smoking Status: Never smoker Second Hand Exposure: No; Do You Dip or Chew Tobacco: No; Tobacco Cessation Education Requested by Patient: No Hx Alcohol Use: No Hx Substance Use: No Preferred Language: Thai Communication Ability: Effective Product Development Carpenter Required: No Beliefs That Will Affect Care: None marital status: Current Living Situation: Spouse current occupational status: retired Other Information That Helps Us Care for You: No Feels Safe at Home: Yes Safety Concerns: Feels Safe At This Time Assistive Devices: Glasses and Walker Review of Systems Review of Systems: All systems reviewed & are unremarkable except as noted in HPI & below Physical Exam Physical Exam: General-Not in distress Head- atraumatic Eyes- PERRL. ENT- oropharynx clear Neck- supple, no JVD. Lungs- clear to auscultation no wheezing or crackles Heart- irregular rhythm; no murmur, no gallop. Abdomen- normal bowel sounds, soft, healing surgical scar seen, no drainage seen,mild diffuse discomfort Extremities- no pretibial edema, no erythema seen Neuro- alert, oriented PERRL, no facial palsy; no dysarthria; moves extremities Results & Data Results & Data Vital Signs (Past 12 Hours) Vital Signs Temp Pulse Resp BP Pulse Ox O2 Del Method 04/25/25 23:00 68 24 145/94 H 94 04/25/25 22:00 54 L 18 152/90 H 95 04/25/25 21:30 55 L 17 156/89 H 94 04/25/25 20:55 55 L 04/25/25 20:30 56 L 21 128/85 94 04/25/25 20:00 57 L 24 138/79 96 04/25/25 19:30 47 L 17 146/81 H 95 04/25/25 19:06 63 19 95 04/25/25 18:33 62 18 93 Room Air 04/25/25 18:30 133/80 04/25/25 18:00 123/71 04/25/25 17:09 63 19 97 Room Air 04/25/25 17:00 53 L 18 04/25/25 17:00 52 L 04/25/25 16:41 36.9 C 55 L 18 150/86 H 97 Room Air Diagnostic Findings Laboratory Results WBC 4.93 K/ul (4.8-10.8) 04/25/25 17:01 RBC 4.80 M/uL (4.70-6.10) 04/25/25 17:01 Hgb 14.5 g/dl (14.0-18.0) 04/25/25 17:01 Hct 44.0 % (42.0-52.0) 04/25/25 17: MCV 91.7 fL (80.0-100.0) 04/25/25 17: MCH 30.2 pg (25.0-34.0) 04/25/25 17:01 MCHC 33.0 g/dL (32.0-36.0) 04/25/25 17: RDW Std Deviation 49.6 fL (36.4-46.3) H 04/25/25 17: RDW Coeff of Willa 14.6 % (11.5-14.5) H 04/25/25 17: Plt Count 289 K/uL (130-400) 04/25/25 17: MPV 8.9 fL (9.4-12.4) L 04/25/25 17:01 Immature Gran % (Auto) 0.2 % 04/25/25 17:01 Neut % (Auto) 65.9 % 04/25/25 17:01 Lymph % (Auto) 19.1 % 04/25/25 17:01 [place] % (Auto) 9.9 % 04/25/25 17:01 Eos % (Auto) 4.5 % 04/25/25 17:01 Baso % (Auto) 0.4 % 04/25/25 17:01 Neut # (Auto) 3.25 K/uL (1.40-6.50) 04/25/25 17:01 Lymph # (Auto) 0.94 K/uL (1.20-3.40) L 04/25/25 17:01 [place] # (Auto) 0.49 K/uL (0.11-0.59) 04/25/25 17:01 Eos # (Auto) 0.22 K/uL (0.00-0.50) 04/25/25 17:01 Baso # (Auto) 0.02 K/uL (0.00-0.20) 04/25/25 17:01 Immature Gran # (Auto) 0.01 K/uL (0.01-0.20) 04/25/25 17:01 PT 10.9 Seconds (9.0-12.0) 04/25/25 17:01 INR 1.0 (0.9-1.1) 04/25/25 17:01 APTT 29 Seconds (21-31) 04/25/25 17:01 PTT Ratio 1.1 04/25/25 17:01 Sodium 136 mmol/L (136-145) 04/25/25 17:01 Potassium 4.0 mmol/L (3.5-5.1) 04/25/25 22:50 Chloride 105 mmol/L (98-107) 04/25/25 17:01 Carbon Dioxide 25 mmol/L (21-32) 04/25/25 17:01 Anion Gap 6 (3-11) 04/25/25 17:01 BUN 13 mg/dl (6-23) 04/25/25 17:01 Creatinine 0.75 mg/dl (0.6-1.4) 04/25/25 17:01 Est Cr Clr Drug Dosing Not Reportable 04/25/25 17:01 eGFR 92.94 04/25/25 17:01 BUN/Creatinine Ratio 17.3 (10-20) 04/25/25 17:01 Glucose 111 mg/dl (70-99(Fasting)) H 04/25/25 17:01 Calcium 8.1 mg/dl (8.6-10.3) L 04/25/25 17:01 Magnesium 2.2 mg/dl (1.7-2.4) 04/25/25 17:01 Total Bilirubin 0.3 mg/dl (0.2-1.0) 04/25/25 17:01 AST 28 U/L (13-39) 04/25/25 22:50 ALT 36 U/L (7-52) 04/25/25 17:01 Alkaline Phosphatase 164 U/L (34-104) H 04/25/25 17:01 Troponin I High Sens 22.1 pg/ml (0-20) H 04/25/25 19:52 Total Protein 6.4 gm/dl (6.0-8.3) 04/25/25 17:01 Albumin 3.6 gm/dl (3.4-5.0) 04/25/25 17:01 Globulin 2.8 gm/dl (2.5-4.0) 04/25/25 17:01 Albumin/Globulin Ratio 1.3 (0.9-2) 04/25/25 17:01 Lipase 11 U/L (11-82) 04/25/25 17:01 TSH 2.270 uIu/ml (0.300-4.500) 04/25/25 17:01 Impressions Chest X-Ray 04/25/25 16:53 Chest radiograph, one view History: Chest pain Comparison: None Findings: Single AP view of the chest performed. No focal consolidation or pleural effusion. No pneumothorax. The cardiomediastinal silhouette is within normal limits. Normal pulmonary vascularity. No evidence for lymphadenopathy. No visualized bony or soft tissue abnormality. Impression: Normal chest radiograph Electronically signed by Glenn Austin 04-25-2025 5:56 PM ECG Additional Comments: ECG A-fib rate of 65. Repeat ECG. Sinus bradycardia rate of 59. QTc 427 Code Status & VTE Plan VTE Prophylaxis Plan VTE Prophylaxis will be ordered: Yes (1) Atrial fibrillation Atrial fibrillation type: unspecified Qualified Code(s): I48.91 - Unspecified atrial fibrillation
[2025-04-26 01:56] VITALS: RESP 18
[2025-04-26] MEDS ORDERED: NITROGLYCERIN SL 0.4 MG/TAB TAB SL PRN (02:30)
[2025-04-26] MEDS ORDERED: ACETAMINOPHEN 325 MG TAB PO PRN (02:30)
[2025-04-26] MEDS ORDERED: POLYETHYLENE (MIRALAX) 17 GM PACK PO PRN (02:30)
[2025-04-26 05:45] LABS: Hematocrit (blood only) 39.9 % (42.0-52.0); Hemoglobin 13.1 g/dl (14.0-18.0); Immature Granulocytes # (auto) 0.02 K/uL (0.01-0.20); Immature Granulocytes % (auto) 0.4 %; Mean Corpuscular Hemoglobin 29.8 pg (25.0-34.0); Mean Corpuscular Volume 90.9 fL (80.0-100.0); Platelet Count 261 K/uL (130-400); RDW Standard Deviation 49.1 fL (36.4-46.3); Red Blood Count 4.39 M/uL (4.70-6.10); White Blood Count 5.70 K/ul (4.8-10.8)
[2025-04-26 06:02] LABS: Anion Gap 5.0 (3-11); Blood Urea Nitrogen 11.0 mg/dl (6-23); Calcium 8.0 mg/dl (8.6-10.3); Carbon Dioxide 26.0 mmol/L (21-32); Chloride 106.0 mmol/L (98-107); Creatinine Clr Calc Pharmacy 88.6 ml/min; Glucose 101.0 mg/dl (70-99(Fasting)); Magnesium 2.1 mg/dl (1.7-2.4); Potassium 3.9 mmol/L (3.5-5.1); Sodium 137.0 mmol/L (136-145)
[2025-04-26] MEDS ORDERED: NON-FORMULARY MEDICATION (Ascorbate Calcium-Bioflavonoid [Ester-C With Bioflavonoids] 500- PO SCH (09:00)
--- NOTE | 2025-04-26 10:16 | XCELERA ---
[id number]
[2025-04-26] MEDS: SENNA 8.6 MG TAB PO SCH (10:34)
[2025-04-26] MEDS: MAGNESIUM OXIDE 400 MG TAB PO SCH (10:34)
[2025-04-26] MEDS: CALCIUM CARBONATE 1250MG TAB PO SCH (10:34)
[2025-04-26] MEDS: ASPIRIN 81 MG ECTAB PO SCH (10:34)
[2025-04-26] MEDS: DOCUSATE SODIUM 100 MG CAP PO SCH (10:34)
[2025-04-26] MEDS: VITAMIN B COMPLEX TAB PO SCH (10:35)
[2025-04-26] MEDS: AMIODARONE 200 MG TAB PO SCH (10:35)
--- NOTE | 2025-04-26 11:01 | Cardiology Consultation ---
Date of Consultation April 26, 2025 Assessment & Plan (1) Paroxysmal atrial fibrillation: Plan 1. Paroxysmal AF Chads 2 vasc score 2 (age) 2. Bioprosthetic AVR 2016 3. Borderline TBS 4. HTN 5. IPMN s/p Whipple procedure -Patient with self limited episode of rate controlled AF -Has maintained NSR on telemetry. Remains asymptomatic -Euvolemic on examination -ECHO with normal LVEF, well functioning AVR -Patient cleared with GI to start Eliquis 5mg BID for stroke prophylaxis -Continue amiodarone 100mg daily -Follow-up in outpatient cardiology clinic in 2-4 weeks Case discussed with Dr Serrano. I spent a total of 46 minutes on the date of service in preparation, delivery, and documentation of the care provided to this patient, excluding any time spent in the performance of separately billed services. Joanne Nicholas PA-C Department of Cardiology, [facility] This chart was completed in part utilizing Speech Voice Recognition Software. Grammatical errors, random word insertions, pronoun errors, and incomplete sentences are an occasional consequence of this system due to software limitations, ambient noise, and hardware issues. Any formal questions or concerns about the content, text, or information contained within the body of this dictation should be directly addressed to the provider for clarification. Supervising Physician Co-Signing Physician Notes Patient seen and examined. Past medical history, surgical history, social history and family history have been reviewed. The medical record and all the above studies have been reviewed. Case DW GRICELDA including management. Paroxysmal AF - Chads 2 vasc score 2 (age) Bioprosthetic AVR 2017 Borderline TBS HTN IPMN s/p Whipple procedure start Eliquis - cleared from surgery as per hospitalist continue other current card meds stable from cardiac standpoint for discharge f/u in cardiology clinic post discharge History of Present Illness Reason for Consultation: AFIB Requesting Physician: Dr Salinas Attending Physician: Jesus Salinas MD History of Present Illness Torsten Callahan is a 79 year old male with PMHx bioprosthetic aortic valve replacement 2017, paroxysmal AF on amiodarone (not on AC), borderline TBS, HTN who presented to [facility] ED yesterday with irregular heart beat. Patient noticed this while checking his blood pressure his heart rate was irregular. Then checked carotid pulse and noted irregularity and sought evaluation. Mild palpitations. Patient recently underwent whipple procedure for IPMN on lovenox shots x4 weeks for DVT prophylaxis, otherwise takes ASA. Vasotec was held. Completed lovenox injections yesterday for prophylaxis. Patient presented to ED in AF, but converted to SB. Patient feeling well. Normal PO intake, no recent illness Denies hx of abnormal bleeding, melena Denies chest pain, shortness of breath, LE edema, syncope Allergies Allergy/AdvReac Type Severity Reaction Status Date / Time latex Allergy Intermediate swelling Verified 02/20/23 15:37 on contact ragweed pollen Allergy Intermediate swelling Verified 02/20/23 15:37 tetracycline Allergy Intermediate hives Verified 02/20/23 15:37 Home Medications Medication Instructions Recorded Confirmed Type ascorbate calcium-bioflavonoid 500 1 tab PO DAILY 12/15/18 04/25/25 History mg-200 mg tablet (Macey-C with Bioflavonoids) calcium carbonate (Calcium 600) 600 mg PO BID 12/15/18 04/25/25 History enalapril maleate 20 mg tablet 20 mg PO DAILY 12/15/18 04/25/25 History magnesium oxide 400 mg PO BID 12/15/18 04/25/25 History vitamin B complex (B-Complex 1 tab PO Q OTHER DAY 12/15/18 04/25/25 History tablet) amiodarone 200 mg tablet 100 mg PO DAILY 02/20/23 04/25/25 History aspirin 81 mg tablet,delayed 81 mg PO DAILY 02/20/23 04/25/25 History release nltvtcnrkyi-iep-wscpiezwt-hrb 2 tab PO DAILY 02/20/23 04/25/25 History 149-hyalur 500 mg-500 mg-66.7 mg tablet (Dxvdcrxdvlp-Yhwctyirqot-TRK (with antiox)) lansoprazole 30 mg capsule,delayed 30 mg PO DAILY 02/20/23 04/25/25 History release amlodipine 5 mg tablet 5 mg PO DAILY 04/25/25 04/25/25 History docusate sodium 100 mg capsule 100 mg PO DAILY 04/25/25 04/25/25 History sennosides 8.6 mg tablet 8.6 mg PO DAILY 04/25/25 04/25/25 History apixaban 5 mg tablet (Eliquis) 5 mg PO BID #60 tabs 04/26/25 Rx Patient History Medical History Aortic valve stenosis GERD (gastroesophageal reflux disease) HTN (hypertension) Surgical History Hx of hernia repair age 7 History of hip replacement b/l Hx of aortic valve replacement done in [place], [place] Dr. Zach Wood Family History Other Family history non-contributory Social History Smoking Status: Never smoker Second Hand Exposure: No; Do You Dip or Chew Tobacco: No; Hx Alcohol Use: No Hx Substance Use: No Preferred Language: Icelandic Communication Ability: Effective Day Care Supervisor Required: No Beliefs That Will Affect Care: None marital status: Current Living Situation: Spouse current occupational status: retired Feels Safe at Home: Yes Assistive Devices: Glasses and Walker Review of Systems Review of Systems: All systems reviewed & are unremarkable except as noted in HPI & below Physical Exam Constitutional: WD/WN, vitals as above well developed and well nourished; no acute distress Respiratory: normal respiratory effort, lungs clear to auscultation Cardiovascular: Rate/Rhythm: regular rate and regular rhythm Heart Sounds: normal S1, normal S2 and + murmur Vessels: no JVD Extremities: no edema Gastrointestinal (Abdomen): normal bowel sounds, soft, nontender, no hepatosplenomegaly Skin: no rashes, warm and dry Psychiatric: A+Ox3, euthymic affect Results & Data Vital Signs (Past 12 Hours) Vital Signs Temp Pulse Pulse Resp BP BP Pulse Ox 04/26/25 07:45 36.6 C 55 L 18 147/79 H 91 04/26/25 05:17 54 L 04/26/25 02:31 36.5 C 60 18 152/85 H 95 04/26/25 02:30 36.5 C 60 16 152/85 H 95 04/26/25 01:55 63 18 139/82 93 04/26/25 00:47 62 16 139/79 94 04/26/25 00:44 54 L 04/25/25 23:00 68 24 145/94 H 94 O2 Del Method 04/26/25 07:45 Room Air 04/26/25 05:17 04/26/25 02:31 Room Air 04/26/25 02:30 Room Air 04/26/25 01:55 04/26/25 00:47 04/26/25 00:44 04/25/25 23:00 Laboratory Results Cardiac Enzymes 04/25/25 04/25/25 04/25/25 Range/Units 17:01 19:52 22:50 AST TNP Cancelled 28 Troponin I High Sens 21.0 H 22.1 H (0-20) pg/ml 04/26/25 Range/Units 05:31 AST Troponin I High Sens 22.8 H (0-20) pg/ml Coagulation 04/25/25 Range/Units 17:01 PT 10.9 (9.0-12.0) Seconds APTT 29 (21-31) Seconds CBC 04/25/25 04/26/25 Range/Units 17:01 05:31 WBC 4.93 5.70 (4.8-10.8) K/ul RBC 4.80 4.39 L (4.70-6.10) M/uL Hgb 14.5 13.1 L (14.0-18.0) g/dl Hct 44.0 39.9 L (42.0-52.0) % Plt Count 289 261 (130-400) K/uL Neut # (Auto) 3.25 3.77 (1.40-6.50) K/uL Lymph # (Auto) 0.94 L 0.97 L (1.20-3.40) K/uL [place] # (Auto) 0.49 0.65 H (0.11-0.59) K/uL Eos # (Auto) 0.22 0.27 (0.00-0.50) K/uL Baso # (Auto) 0.02 0.02 (0.00-0.20) K/uL Comprehensive Metabolic Panel 04/25/25 04/25/25 04/25/25 Range/Units 17:01 19:52 22:50 Sodium 136 (136-145) mmol/L Potassium TNP Cancelled 4.0 Chloride 105 (98-107) mmol/L Carbon Dioxide 25 (21-32) mmol/L BUN 13 (6-23) mg/dl Creatinine 0.75 (0.6-1.4) mg/dl Glucose 111 H (70-99(Fasting)) mg/dl Calcium 8.1 L (8.6-10.3) mg/dl AST TNP Cancelled 28 ALT 36 (7-52) U/L Alkaline Phosphatase 164 H (34-104) U/L Total Protein 6.4 (6.0-8.3) gm/dl Albumin 3.6 (3.4-5.0) gm/dl 04/26/25 Range/Units 05:31 Sodium 137 (136-145) mmol/L Potassium 3.9 Chloride 106 (98-107) mmol/L Carbon Dioxide 26 (21-32) mmol/L BUN 11 (6-23) mg/dl Creatinine 0.71 (0.6-1.4) mg/dl Glucose 101 H (70-99(Fasting)) mg/dl Calcium 8.0 L (8.6-10.3) mg/dl AST ALT (7-52) U/L Alkaline Phosphatase (34-104) U/L Total Protein (6.0-8.3) gm/dl Albumin (3.4-5.0) gm/dl Intake and Output 04/25/25 04/26/25 04/26/25 22:59 06:59 14:59 Intake Total 60 / 60 Balance 60 / 60 Intake: IV 60 / 60 Calcium Gluconate 1,000 mg In 60 / 60 60 ml @ 240 mls/hr IV NOW STA Rx#:[id number] Other: Other Intake Source npo Weight 83.5 kg 80.6 kg Weight Measurement Method Built in Bedscale Standing Scale Diagnostic Findings ECHO 04/26/2025 EF 60-65% There is a bioprostethic valve that is well seated mild to moderate mitral regurgitation mild tricuspid regurgitation aortic root is mildly enlarged ECHO 01/04/2025 EF 60-64% LV wall thickness moderately increased LV wall motion is normal LA mildly enlarged RA mildly enlarged Normal bioprosthetic aortic valve replacement with peak gradient 28mmhg mild mitral regurgitation mild tricuspid regurgitation aortic root is mildly enlarged No pulmonary HTN no interval change from previous echo EKG 04/25/2025 SB 53bpm EKG 04/25/2025 AF 65bpm PG Care Time/CCT Total # of Minutes Spent Total Time Spent with Patient: Total time spent is greater than 50% in coordination of care (as documented) at patient's floor/unit and/or counseling patient: Coding Level of Care Code 74425 IN/OBS CONSULT LVL 5,80M Diagnoses Paroxysmal atrial fibrillation I48.0
[2025-04-26 11:06] VITALS: BP 135/84; PULSE 60; TEMP 97.7; O2SAT 93
--- NOTE | 2025-04-26 13:20 | Discharge Summary ---
Date of Service April 26, 2025 Admission HPI Per Admitting Provider 79-year-old male with past medical history significant for hypomagnesia, dyslipidemia, IPMN, hypertension, GERD, spondylolisthesis, osteoporosis, , history of pancreatitis, status post aortic valve replacement with bovine bioprosthesis in 2017 for progressive calcific aortic stenosis, paroxysmal atrial fibrillation postoperatively after AVR on chronic amiodarone therapy, borderline tachybradycardia syndrome presents with A-fib. About 4 weeks ago patient had Whipple's procedure for IPMN. States since last 4 weeks he is on Lovenox shots for DVT prophylaxis and he completed the prophylaxis today. During Whipple's procedure Vasotec was held and patient was advised to check blood pressure daily. His blood pressure has been running okay and he did not resume the Vasotec. Today when checking his blood pressure his blood pressure monitor showed his heart rate was irregular. When he checked his carotid pulse patient noticed irregular heartbeat which concerned him and came to the ER. Denies any dizziness. Denies any chest pain or shortness of breath. No nausea. No sweating. No cough. No runny nose or sore throat. Appetite is okay. Has some abdominal soreness from surgery. Normal bowel and bladder movements. Ambulating okay in the house. Afebrile. Currently resting comfortably and hemodynamically stable. In the ER when he came in, he was in A-fib but then converted to sinus bradycardia in the ER. Past medical history. As mentioned above Past surgical history. Colonoscopy. EGD with endoscopic ultrasound. Bilateral cataracts. Bioprosthetic arctic valve replacement. Bilateral total hip replacement. Whipple's procedure. Social history . No smoking. No alcohol currently. No drug use. Family history. Mother had arthritis. Stroke and cardiac. Hypertension. 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 Admission Exam Per Admitting Provider General-Not in distress Head- atraumatic Eyes- PERRL. ENT- oropharynx clear Neck- supple, no JVD. Lungs- clear to auscultation no wheezing or crackles Heart- irregular rhythm; no murmur, no gallop. Abdomen- normal bowel sounds, soft, healing surgical scar seen, no drainage seen,mild diffuse discomfort Extremities- no pretibial edema, no erythema seen Neuro- alert, oriented PERRL, no facial palsy; no dysarthria; moves extrem ities Principal Diagnosis Atrial fibrillation Discharge Exam General- WD/WN elderly M Not in distress Head- atraumatic Eyes- PERRL. Neck- supple Lungs- clear to auscultation no wheezing or crackles Heart- rrr; no murmur Abdomen- normal bowel sounds, soft, healing surgical scar seen, no drainage seen,mild diffuse discomfort Extremities- no pretibial edema, no erythema seen, moves extremities Neuro- alert, oriented PERRL, no facial palsy; no dysarthria; moves extremities Discharge Data Allergies Allergy/AdvReac Type Severity Reaction Status Date / Time latex Allergy Intermediate swelling Verified 02/20/23 15:37 on contact ragweed pollen Allergy Intermediate swelling Verified 02/20/23 15:37 tetracycline Allergy Intermediate hives Verified 02/20/23 15:37 Consultations 04/25/25 21:53 ED Decision to Admit Stat 04/26/25 08:00 Consult Cardiology Routine Hospital Course (1) Atrial fibrillation: 79-year-old male with past medical history significant for hypomagnesia, dyslipidemia, IPMN, hypertension, GERD, spondylolisthesis, osteoporosis, , history of pancreatitis, status post aortic valve replacement with bovine bioprosthesis in 2017 for progressive calcific aortic stenosis, paroxysmal atrial fibrillation postoperatively after AVR on chronic amiodarone therapy, borderline tachybradycardia syndrome presents with A-fib. About 4 weeks ago patient had Whipple's procedure for IPMN. States since last 4 weeks he is on Lovenox shots for DVT prophylaxis and he completed the prophylaxis today. During Whipple's procedure Vasotec was held and patient was advised to check blood pressure daily. His blood pressure has been running okay and he did not resume the Vasotec. Today when checking his blood pressure his blood pressure monitor showed his heart rate was irregular. When he checked his carotid pulse patient noticed irregular heartbeat which concerned him and came to the ER. Denies any dizziness. Denies any chest pain or shortness of breath. No nausea. No sweating. No cough. No runny nose or sore throat. Appetite is okay. Has some abdominal soreness from surgery. Normal bowel and bladder movements. Ambulating okay in the house. Afebrile. Currently resting comfortably and hemodynamically stable. In the ER when he came in, he was in A-fib but then converted to sinus bradycardia in the ER. A-fib History of paroxysmal atrial fibrillation after bioprosthetic valve replacement and on amiodarone therapy History of borderline tachybradycardia syndrome Currently rates under control Not on anticoagulation at home On aspirin Will monitor on telemetry Echocardiogram obtained - LV syst. function normal. LV EF 60-65%. Grade I diast. dysfunction.There is bioprosthetic aortic valve. Mild pulmonic valv. regurg. Mild to moderate mitral regurg. Mild tricuspid regurg. Mild aortic dilatation. Cardiology consulted and discussed with - cont. amiodarone, amlodipine. Start Eliquis if cleared by GI or surgery. Follow up w/ cardiology as outpt and ok to DC after starting Eliquis. I contacted pt's surgeon at [facility], Dr. Betts via TT, given pt is s/p Tani 4 weeks ago - per surgeon, ok to start Eliquis. Hypertension On amlodipine Vasotec on hold since Whipples surgery 4 weeks ago Will monitor blood pressure GERD on lansoprazole IPMN Status post Whipple's procedure (4 weeks ago at [facility]) Follow-up as scheduled Hypomagnesia Continue supplement Hypocalcemia on calcium supplements Follow labs Total Time Total Time Spent Total Time Spent (In Minutes): 40 Discharge Plan Discharge Items Patient Disposition: Home - Self-Care Reason For Visit: A FIB Discharge Diagnosis: Atrial fibrillation Condition on Discharge: Fair Activity: Per Instructions section Non-emergency contact: Primary Care Provider, Surgeon and Motor Winder Call non-emergency contact if: you have any medication questions and your symptoms worsen Follow-up/Referrals: Ana Robb MD [Primary Care Provider] - Diet: Heart Healthy Addtl Attending Provider Instructions: Follow up with your primary care physician, renewals specialist and surgeon. You were admitted for Atrial fibrillation and started on Eliquis. Take it as prescribed - 5 mg twice a day. Continue taking your amiodarone, and amlodipine as prescribed. Pending Studies at Discharge: No Stand-Alone Forms: My [employer], Smoking Cessation Medications and DC Order Prescriptions: New Eliquis 5 mg Tablet 5 mg PO BID Qty: 60 0RF Continued enalapril maleate 20 mg tablet 20 mg PO DAILY Patient Comments: 04/25- pt states he stopped taking med until further notice by recommendation of his surgeon due to a surgery he had 4 wks ago will follow up with primary. calcium carbonate [Calcium 600] 600 mg calcium (1,500 mg) Tablet 600 mg PO BID vitamin B complex [B-Complex] Tablet 1 tab PO Q OTHER DAY Patient Comments: 04/25- pt states he alternates with vitamin d 25mcg Macey-C with Bioflavonoids 500-200 mg Tablet 1 tab PO DAILY magnesium oxide 400 mg magnesium Tablet 400 mg PO BID amiodarone 200 mg tablet 100 mg PO DAILY Patient Comments: 04/25-pt states he has been taking half a tab for a dose of 100mg for 9 months aspirin 81 mg Tablet,Delayed Release (Dr/Ec) 81 mg PO DAILY lansoprazole 30 mg capsule,delayed release(DR/EC) 30 mg PO DAILY [id number] [Uevoba-Eowfz-WLA (with antiox)] 500-500-66.7 mg Tablet 2 tab PO DAILY sennosides 8.6 mg tablet 8.6 mg PO DAILY amlodipine 5 mg tablet 5 mg PO DAILY docusate sodium 100 mg capsule 100 mg PO DAILY Patient Comments: 04/25 - pt states he takes Colace in the morning along with another OTC stool softener at dinner time. Discharge Orders: Discharge Order (Routine); Ordered 04/26/25 Ordered By: Jesus Salinas Admission Data Admit Date/Time: 04/25/25 23:18 Attending Provider: Jesus Salinas Admit Provider: Surendra Perez Primary Care Provider: Ana Robb Other Providers: Surendra Perez; Pema Brooks; Torsten Doan; Tyson Seaman; Tucker Gilman; Quang Lucero; Yasmany Feliciano; Roya Araujo; Araceli Glover; Abbey Flores; Tasneem Stearns; Pema De Santiago; Clemente Diaz; Corey Santana; Gayle Blank; Sabine Recinos; Michelle Falcon; Saundra Salvador; Palomo Ace; Joanne Nicholas; Mony Jasso; Glenn Correa; Alfnoso Serrano
[2025-04-26] MEDS: APIXABAN 5 MG TABLET PO SCH (13:30)
--- NOTE | 2025-04-26 14:22 | Communication Note ---
Date of Service: April 26, 2025 Code 44 attestation The chart limbs 1947 was reviewed and noted that it was quite appropriate for attending physician to discharge the patient given stable and improved medical condition. By CMS guidelines, a determination that the admission or continued stay is not medically necessary has been made by a member of the UR committee and a phy sician for this hospital stay, therefore a Code 44 will be completed and the Inpatient admission will be changed to outpatient. Dr Toño Bedolla
--- NOTE | 2025-04-27 06:48 | Electrocardiogram Report ---
Test Reason : Blood Pressure : */* mmHG Vent. 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
--- NOTE | 2025-04-27 06:49 | Electrocardiogram Report ---
Test Reason : Blood Pressure : */* mmHG Vent. 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
== END 2025-04-26 14:05 | disposition home or self-care (01) | DRG 310 ==
LOC: ED 16:35 → INTOOBSV 23:18 → 4W 23:18

== ENCOUNTER 2025-06-24 10:11 | Inpatient (IN) ==
--- NOTE | 2025-06-24 10:54 | Emergency Department Note ---
Impression & Plan Tachy-naida syndrome ED Provider Note HISTORY OF PRESENT ILLNESS: Patient is a 80-year-old male presenting with tachycardia. Patient reports that at around 9:30 am he started having the sensation that his heart was racing. He used a [employer] at home equipment monitor phototypesetting that showed he was in A-fib with a heart rate of 140s. He states that symptoms lasted for about 30 minutes and he presented to the emergency department. He took his normal medications this morning, which included amiodarone and metoprolol. He denies any chest pain or shortness of breath with the episode. He is on Eliquis and denies any missed doses. Denies any DVT or PE history. He is symptom-free on arrival to the ER. Reports he feels improved. He follows with Dr. Seaman with [facility]. ROS: as above PHYSICAL EXAM: Constitutional: Patient appears in no acute distress. HENT: Head: Normocephalic and atraumatic. Eyes: EOMI, PERRL Mouth/Throat: Mucous membranes moist. Neck: Trachea midline. Neck supple. Cardiovascular: RRR, No murmurs, rubs or gallops. Intact distal pulses. Pulmonary/Chest: No respiratory distress. Breath sounds clear and equal bilaterally. No wheezes or rales. Abdominal: Abdomen soft, no tenderness, rebound or guarding. Musculoskeletal: No edema, tenderness or deformity noted. Skin: Warm and dry. No rash, erythema, pallor or cyanosis Psychiatric: Appropriate mood and affect for situation. Neurological: Alert and keenly responsive. CN II-XII grossly intact, moving all extremities equally and fully. MDM: - Vitals signs stable - History obtained via patient. History as above. - Chronic conditions affecting care: Paroxysmal A-fib; HTN; aortic stenosis - Differential diagnoses include, but are not limited to: Dysrhythmia; electrolyte abnormality; ACS; pneumonia; CHF exacerbation - Order placed for continuous cardiac monitoring. At this time, monitor showed rate of 65 bpm with normal sinus rhythm, per my interpretation. - External medical records reviewed. Cardiology visit note dated 06/16/2025 from the [facility] system was reviewed. Patient has a history of paroxysmal A-fib. He is on chronic amiodarone therapy. - EKG image interpreted by myself showed normal sinus rhythm. Rate 74 bpm. QT 402. No acute ischemic changes. - Laboratory workup interpreted by myself showed normal WBC; normal PT/INR; stable electrolytes; slightly elevated troponin (20.9); elevated BNP (182); normal TSH - CXR image reviewed interpreted by myself showed pulmonary vascular congestion, per my interpretation. Radiology notes evidence of congestive failure and trace pleural effusions. - Discussed case with [facility] tenant coordinator, Dr. Doan. He came and evaluated the patient and will write a note but states that the patient should be admitted to the medicine service for plan for pacemaker placement tomorrow. - Discussion was had with complex case manager about patient's case and need for admission - Hospitalist consulted for admission - [facility] ASSESSMENT AND PLAN: Diagnosis: Tachybradycardia syndrome Plan: Admit Past Med/Surg History Problem List (Updated 06/24/25 @ 13:32 by Torsten Doan, DO) Tachy-naida syndrome PSVT (paroxysmal supraventricular tachycardia) Atrial fibrillation with rapid ventricular response (Acute) Paroxysmal atrial fibrillation Hypocalcemia (Acute) Elevated troponin (Acute) Atrial fibrillation (Acute) Palpitations (Acute) Acute pancreatitis (Acute) Abdominal pain (Acute) Atrial fibrillation Hypertension (Chronic) Bronchitis (Acute) GERD (gastroesophageal reflux disease) (Chronic) Concussion (Acute) Encounter for removal of sutures (Acute) Facial laceration (Acute) Left rib fracture (Acute) Right radial head fracture (Acute) Medical History Aortic valve stenosis GERD (gastroesophageal reflux disease) HTN (hypertension) Surgical History Hx of hernia repair age 7 History of hip replacement b/l Hx of aortic valve replacement done in [place], [place] Dr. Zach Wood Family History Other Family history non-contributory Social History Smoking Status: Never smoker Second Hand Exposure: No; Do You Dip or Chew Tobacco: No; Hx Alcohol Use: No Hx Substance Use: No Preferred Language: Dominican Communication Ability: Effective Integration Assistant Required: No Beliefs That Will Affect Care: None marital status: Current Living Situation: Spouse current occupational status: retired Feels Safe at Home: Yes Assistive Devices: Glasses and Walker Allergies Allergies Allergy/AdvReac Type Severity Reaction Status Date / Time latex Allergy Intermediate swelling Verified 02/20/23 15:37 on contact ragweed pollen Allergy Intermediate swelling Verified 02/20/23 15:37 tetracycline Allergy Intermediate hives Verified 02/20/23 15:37 Home Meds Home Medications Medication Instructions Recorded Confirmed ascorbate calcium-bioflavonoid 500 1 tab PO DAILY 12/15/18 06/24/25 mg-200 mg tablet (Macey-C with Bioflavonoids) calcium carbonate (Calcium 600) 600 mg PO BID 12/15/18 06/24/25 magnesium oxide 400 mg PO BID 12/15/18 06/24/25 vitamin B complex (B-Complex 1 tab PO Q OTHER DAY 12/15/18 06/24/25 tablet) amiodarone 200 mg tablet 100 mg PO DAILY 02/20/23 06/24/25 aspirin 81 mg tablet,delayed 81 mg PO DAILY 02/20/23 06/24/25 release urmqjcmswee-msl-fwqecqohp-hrb 2 tab PO DAILY 02/20/23 06/24/25 149-hyalur 500 mg-500 mg-66.7 mg tablet (Rkbncptarpa-Bkesblahyuo-FIH (with antiox)) lansoprazole 30 mg capsule,delayed 30 mg PO DAILY 02/20/23 06/24/25 release amlodipine 5 mg tablet 5 mg PO DAILY 04/25/25 06/24/25 docusate sodium 100 mg capsule 100 mg PO DAILY 04/25/25 06/24/25 sennosides 8.6 mg tablet 8.6 mg PO DAILY 04/25/25 06/24/25 cholecalciferol (vitamin D3) 25 25 mcg PO DAILY 05/31/25 06/24/25 mcg (1,000 unit) chewable tablet (Vitamin D3) enalapril maleate 5 mg tablet 5 mg PO DAILY 05/31/25 06/24/25 (Vasotec) metoprolol succinate 25 mg 0 mg PO DAILY 05/31/25 06/24/25 tablet,extended release 24 hr Previous Rx's Medication Instructions Recorded apixaban 5 mg tablet (Eliquis) 5 mg PO BID #60 tabs 04/26/25 Results & Data (ED) Vital Signs Vital Signs - 24 hr 06/24/25 10:14 06/24/25 10:19 06/24/25 10:33 Temperature 36.6 C Temperature Source Temporal Artery Scan Pulse Rate 80 72 67 Pulse Rate from SpO2 Sensor Pulse Rhythm Regular Respiratory Rate 18 18 Respiratory Effort / Characteristics Non-Labored Spontaneous Respiratory Depth Normal Blood Pressure 120/79 Blood Pressure Mean 92 Pulse Oximetry 96 97 Oxygen Delivery Method Room Air Room Air Sepsis Recent Fever Within 48 Hours No Sepsis New/Unexplained Change in Mental Status No Sepsis Action Taken by Nursing No Action Required 06/24/25 12:00 Temperature Temperature Source Pulse Rate 60 Pulse Rate from SpO2 Sensor 60 Pulse Rhythm Respiratory Rate 16 Respiratory Effort / Characteristics Respiratory Depth Blood Pressure 104/64 Blood Pressure Mean 77 Pulse Oximetry 95 Oxygen Delivery Method Sepsis Recent Fever Within 48 Hours Sepsis New/Unexplained Change in Mental Status Sepsis Action Taken by Nursing Laboratory Data 06/24/25 10:30 06/24/25 10:30 Lab Results 06/24/25 06/24/25 Range/Units 10:30 12: WBC 6.17 (4.8-10.8) K/ul RBC 4.73 (4.70-6.10) M/uL Hgb 14.0 (14.0-18.0) g/dL Hct 43.4 (42.0-52.0) % MCV 91.8 (80.0-100.0) fL MCH 29.6 (25.0-34.0) pg MCHC 32.3 (32.0-36.0) g/dL RDW Std Deviation 48.0 H (36.4-46.3) fL RDW Coeff of Willa 14.2 (11.5-14.5) % Plt Count 314 (130-400) K/uL MPV 9.3 L (9.4-12.4) fL Immature Gran % (Auto) 0.3 % Neut % (Auto) 80.5 % Lymph % (Auto) 13.9 % [place] % (Auto) 4.5 % Eos % (Auto) 0.6 % Baso % (Auto) 0.2 % Neut # (Auto) 4.96 (1.40-6.50) K/uL Lymph # (Auto) 0.86 L (1.20-3.40) K/uL [place] # (Auto) 0.28 (0.11-0.59) K/uL Eos # (Auto) 0.04 (0.00-0.50) K/uL Baso # (Auto) 0.01 (0.00-0.20) K/uL Immature Gran # (Auto) 0.02 (0.01-0.20) K/uL PT 11.5 (9.0-12.0) Seconds INR 1.1 (0.9-1.1) Sodium 140 (136-145) mmol/L Potassium 3.5 (3.5-5.1) mmol/L Chloride 107 (98-107) mmol/L Carbon Dioxide 25 (21-32) mmol/L Anion Gap 8 (3-11) BUN 16 (6-23) mg/dl Creatinine 0.82 (0.6-1.4) mg/dl Est Cr Clr Drug Dosing Not Reportable eGFR 89.91 BUN/Creatinine Ratio 19.5 (10-20) Glucose 103 H (70-99(Fasting)) mg/dl Calcium 8.7 (8.6-10.3) mg/dl Magnesium 2.1 (1.7-2.4) mg/dl Total Bilirubin 0.8 (0.2-1.0) mg/dl AST 25 (13-39) U/L ALT 25 (7-52) U/L Alkaline Phosphatase 134 H (34-104) U/L Troponin I High Sens 20.9 H 21.6 H (0-20) pg/ml B-Natriuretic Peptide 182 H (0-100) pg/ml Total Protein 6.9 (6.0-8.3) gm/dl Albumin 4.2 (3.4-5.0) gm/dl Globulin 2.7 (2.5-4.0) gm/dl Albumin/Globulin Ratio 1.6 (0.9-2) Lipase 5 L (11-82) U/L TSH 1.939 (0.300-4.500) uIu/ml Imaging Data Radiologist's Impression: Chest X-Ray 06/24/25 10:19 SINGLE VIEW CHEST CLINICAL HISTORY: Chest pain. FINDINGS: An AP, portable, upright chest radiograph is compared to study dated 06/12/2025. The patient is status post midline sternotomy. The heart is enlarged noting atherosclerotic calcification of the thoracic aorta. There is pulmonary vascular congestion. There are low lung volumes. Atelectasis is seen at the lung bases. Trace pleural effusions are suspected. No pneumothorax is seen. The skeletal structures are osteopenic. The bony thorax is grossly intact. IMPRESSION: 1. Cardiomegaly with evidence of congestive failure. Radiographic follow-up to resolution is recommended. 2. Trace pleural effusions are suspected. ACT 112: Negative or not required by law. Electronically signed by: Venkat Velasquez M.D. 06/24/2025 11:05 AM Discharge Plan Visit Data Chief Complaint: Cardiac Assessment Stated Complaint: AFIB ED Provider: Iva Sauer Discharge Problem: Tachy-naida syndrome Patient Disposition: Admitted As Inpatient Condition: Fair Forms Stand Alone Forms: My [employer] Prescriptions Prescriptions: No Action calcium carbonate [Calcium 600] 600 mg calcium (1,500 mg) Tablet 600 mg PO BID Patient Comments: 06/24- otc unable to verify vitamin B complex [B-Complex] Tablet 1 tab PO Q OTHER DAY Patient Comments: 06/24- otc unable to verify Macey-C with Bioflavonoids 500-200 mg Tablet 1 tab PO DAILY Patient Comments: 06/24- otc unable to verify magnesium oxide 400 mg magnesium Tablet 400 mg PO BID amiodarone 200 mg tablet 100 mg PO DAILY Patient Comments: 04/25-pt states he has been taking half a tab for a dose of 100mg for 9 months aspirin 81 mg Tablet,Delayed Release (Dr/Ec) 81 mg PO DAILY Patient Comments: 06/24- otc unable to verify lansoprazole 30 mg capsule,delayed release(DR/EC) 30 mg PO DAILY [id number]-[id number] [Vldgkg-Mavta-EVC (with antiox)] 500-500-66.7 mg Tablet 2 tab PO DAILY Patient Comments: 06/24- otc unable to verify sennosides 8.6 mg tablet 8.6 mg PO DAILY Patient Comments: 06/24- OTC/ last filled 04/04 30 day supply #60 amlodipine 5 mg tablet 5 mg PO DAILY docusate sodium 100 mg capsule 100 mg PO DAILY Patient Comments: 06/24- OTC/last filled 04/04 30 day supply #60 Eliquis 5 mg Tablet 5 mg PO BID Qty: 60 0RF enalapril maleate [Vasotec] 5 mg Tablet 5 mg PO DAILY metoprolol succinate 25 mg Tablet Extended Release 24 Hr 0 mg PO DAILY Patient Comments: 06/24-06/24- per fill history 06/09 written for 25mg po daily. Original:12.5mg po daily cholecalciferol (vitamin D3) [Vitamin D3] 25 mcg (1,000 unit) Tablet,Chewable 25 mcg PO DAILY Patient Comments: 06/24- otc unable to verify Referrals Referrals: Ana Robb MD [Primary Care Provider] -
[2025-06-24 10:55] LABS: Hematocrit (blood only) 43.4 % (42.0-52.0); Hemoglobin 14.0 g/dL (14.0-18.0); Immature Granulocytes # (auto) 0.02 K/uL (0.01-0.20); Immature Granulocytes % (auto) 0.3 %; Mean Corpuscular Hemoglobin 29.6 pg (25.0-34.0); Mean Corpuscular Volume 91.8 fL (80.0-100.0); Platelet Count 314 K/uL (130-400); RDW Standard Deviation 48.0 fL (36.4-46.3); Red Blood Count 4.73 M/uL (4.70-6.10); White Blood Count 6.17 K/ul (4.8-10.8)
--- NOTE | 2025-06-24 11:06 | XRay Report ---
SINGLE VIEW CHEST CLINICAL HISTORY: Chest pain. FINDINGS: An AP, portable, upright chest radiograph is compared to study dated 06/12/2025. The patien t is status post midline sternotomy. The heart is enlarged noting atherosclerotic calcification of th e thoracic aorta. There is pulmonary vascular congestion. There are low lung volumes. Atelectasis is seen at the lung bases. Trace pleural effusions are suspected. No pneumothorax is seen. The skeletal structures are osteopenic. The bony thorax is grossly intact. IMPRESSION: 1. Cardiomegaly with evidence of congestive failure. Radiographic follow-up to resolution is recommen ded. 2. Trace pleural effusions are suspected. ACT 112: Negative or not required by law. Electronically signed by: Venkat Velasquez M.D. 06/24/2025 11:05 AM
[2025-06-24 11:15] LABS: Alanine Aminotransferase 25 U/L (7-52); Albumin Globulin Ratio 1.6 (0.9-2); Albumin Level 4.2 gm/dl (3.4-5.0); Alkaline Phosphatase 134 U/L (34-104); Anion Gap 8 (3-11); Bilirubin,Total 0.8 mg/dl (0.2-1.0); Blood Urea Nitrogen 16 mg/dl (6-23); Calcium 8.7 mg/dl (8.6-10.3); Carbon Dioxide 25 mmol/L (21-32); Chloride 107 mmol/L (98-107); Globulin 2.7 gm/dl (2.5-4.0); Glucose 103 mg/dl (70-99(Fasting)); Lipase 5 U/L (11-82); Magnesium 2.1 mg/dl (1.7-2.4); Potassium 3.5 mmol/L (3.5-5.1); Sodium 140 mmol/L (136-145); Total Protein 6.9 gm/dl (6.0-8.3)
[2025-06-24 11:30] LABS: Thyroid Stimulating Hormone 1.939 uIu/ml (0.300-4.500)
[2025-06-24 11:42] LABS: INR 1.1 (0.9-1.1); Prothrombin Time 11.5 Seconds (9.0-12.0)
--- NOTE | 2025-06-24 13:33 | Cardiology Consultation ---
Date of Consultation June 24, 2025 Assessment & Plan (1) Atrial fibrillation with rapid ventricular response: (2) PSVT (paroxysmal supraventricular tachycardia): (3) Tachy-yamil syndrome: Patient with symptoms of tachycardia bradycardia syndrome with symptomatic AF RVR and SVT and doses of AV yonny blockers limited by sinus bradycardia down to the 50s at basline. He is currently on amiodarone 100 mg daily and metoprolol succinate 25 mg daily. * Admit to PCU * Hold Eliquis this evening and tomorrow am * Pacemaker with Dr Flores of EP on 06/25/25. History of Present Illness History of Present Illness Torsten Callahan is a 80 year old male seen in cardiology consultation per the request of Dr Sauer for the evaluation of palpitations. The patient presents today for recurrent palpitations, onset at just about 830 t his morning. At 938 he used his [email or web address] mobile device to perform he will need EKG. He was able to provide the rhythm strip to me on his smart phone during my assessment in the emergency room and per my interpretation of the rhythm strip reveals atrial fibrillation at 143 bpm. His symptoms persisted well over an hour. He decided to proceed to the emergency room but the time he was leaving his home he felt his heart rate started to slow down. By the time he arrived at the hospital he was back in sinus rhythm. EKG performed on 06/24/2025 at 10:24 AM and interpreted independently revealed sinus rhythm at 74 bpm with age-indeterminate inferior infarct pattern which is a chronic finding for him. During my assessment he is feeling well. The patient has had multiple recent episodes of similar symptoms dating back to April 2025 when he was admitted for several days. Shortly thereafter he presented back to the emergency department last month in May with recurrent atrial fibrillation and had converted back to sinus rhythm spontaneously while in the emergency room. The patient had been given advice to increase his amiodarone from 100 mg daily to 200 mg daily but this was stopped after several doses and decreased back to the 100 mg dose due to feeling unwell including nauseousness on the higher dose. A Zio patch have been worn for 2 weeks and April 2025 with findings of 103 episodes of supraventricular tachycardia with maximum rate of 200 bpm. The longest of which was 4 minutes and 46 seconds in duration. Episodes of this supraventricular tachycardia correlated with his subjective symptoms. History: 1.Status post aortic valve replacement with bovine bioprosthesis 2017 for progressive calcific aortic stenosis, [facility] 2.Paroxysmal atrial fibrillation pronounced post operatively on chronic amiodarone therapy 3.Borderline tachy Yamil syndrome 4.Hypertension 5. IPMN status post Whipple Allergies Allergy/AdvReac Type Severity Reaction Status Date / Time latex Allergy Intermediate swelling Verified 02/20/23 15:37 on contact ragweed pollen Allergy Intermediate swelling Verified 02/20/23 15:37 tetracycline Allergy Intermediate hives Verified 02/20/23 15:37 Home Medications Medication Instructions Recorded Confirmed Type ascorbate calcium-bioflavonoid 500 1 tab PO DAILY 12/15/18 06/24/25 History mg-200 mg tablet (Macey-C with Bioflavonoids) calcium carbonate (Calcium 600) 600 mg PO BID 12/15/18 06/24/25 History magnesium oxide 400 mg PO BID 12/15/18 06/24/25 History vitamin B complex (B-Complex 1 tab PO Q OTHER DAY 12/15/18 06/24/25 History tablet) amiodarone 200 mg tablet 100 mg PO DAILY 02/20/23 06/24/25 History aspirin 81 mg tablet,delayed 81 mg PO DAILY 02/20/23 06/24/25 History release nyrughnwsnr-joa-uxlqbtexe-hrb 2 tab PO DAILY 02/20/23 06/24/25 History 149-hyalur 500 mg-500 mg-66.7 mg tablet (Uzfmwtrjarf-Hljqjwpjgzd-AQB (with antiox)) lansoprazole 30 mg capsule,delayed 30 mg PO DAILY 02/20/23 06/24/25 History release amlodipine 5 mg tablet 5 mg PO DAILY 04/25/25 06/24/25 History docusate sodium 100 mg capsule 100 mg PO BID 04/25/25 06/24/25 History apixaban 5 mg tablet (Eliquis) 5 mg PO BID #60 tabs 04/26/25 06/24/25 Rx cholecalciferol (vitamin D3) 25 25 mcg PO DAILY 05/31/25 06/24/25 History mcg (1,000 unit) chewable tablet (Vitamin D3) enalapril maleate 5 mg tablet 5 mg PO DAILY 05/31/25 06/24/25 History (Vasotec) metoprolol succinate 25 mg 25 mg PO DAILY 05/31/25 06/24/25 History tablet,extended release 24 hr Patient History Medical History (Updated 06/24/25 @ 14:48 by Lynn Ponce PA-C) Aortic valve stenosis GERD (gastroesophageal reflux disease) HTN (hypertension) Surgical History (Updated 06/24/25 @ 14:50 by Lynn Ponce PA-C) H/O Whipple procedure Hx of hernia repair age 7 History of hip replacement b/l Hx of aortic valve replacement done in [place], [place] Dr. 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 Beliefs That Will Affect Care: None marital status: Current Living Situation: Spouse current occupational status: retired Feels Safe at Home: Yes Assistive Devices: Glasses and Walker Review of Systems Review of Systems: All systems reviewed & are unremarkable except as noted in HPI & below Physical Exam Constitutional: WD/WN, vitals as above Eyes: PERRL, conjunctivae normal, anicteric sclerae Neck: trachea midline, no thyromegaly Respiratory: normal respiratory effort, lungs clear to auscultation Cardiovascular: RRR, no murmur, no edema Vessels: no JVD Gastrointestinal (Abdomen): normal bowel sounds, soft, nontender, no hepatosplenomegaly well healed surgical incision over anterior abdomen Neurologic: PERRL, EOMI, accommodation nl, no face palsy, no dysarthria Results & Data Vital Signs (Past 12 Hours) Vital Signs Temp Pulse Resp BP Pulse Ox O2 Del Method 06/24/25 12:00 60 16 104/64 95 06/24/25 10:33 67 06/24/25 10:19 72 18 97 Room Air 06/24/25 10:14 36.6 C 80 18 120/79 96 Room Air Laboratory Results Cardiac Enzymes 06/24/25 06/24/25 Range/Units 10:30 12: AST 25 (13-39) U/L Troponin I High Sens 20.9 H 21.6 H (0-20) pg/ml B-Natriuretic Peptide 182 H (0-100) pg/ml Coagulation 06/24/25 Range/Units 10:30 PT 11.5 (9.0-12.0) Seconds B-Natriuretic Peptide 182 H (0-100) pg/ml CBC 06/24/25 Range/Units 10:30 WBC 6.17 (4.8-10.8) K/ul RBC 4.73 (4.70-6.10) M/uL Hgb 14.0 (14.0-18.0) g/dL Hct 43.4 (42.0-52.0) % Plt Count 314 (130-400) K/uL Neut # (Auto) 4.96 (1.40-6.50) K/uL Lymph # (Auto) 0.86 L (1.20-3.40) K/uL Stoddard # (Auto) 0.28 (0.11-0.59) K/uL Eos # (Auto) 0.04 (0.00-0.50) K/uL Baso # (Auto) 0.01 (0.00-0.20) K/uL Comprehensive Metabolic Panel 06/24/25 Range/Units 10:30 Sodium 140 (136-145) mmol/L Potassium 3.5 (3.5-5.1) mmol/L Chloride 107 (98-107) mmol/L Carbon Dioxide 25 (21-32) mmol/L BUN 16 (6-23) mg/dl Creatinine 0.82 (0.6-1.4) mg/dl Glucose 103 H (70-99(Fasting)) mg/dl Calcium 8.7 (8.6-10.3) mg/dl AST 25 (13-39) U/L ALT 25 (7-52) U/L Alkaline Phosphatase 134 H (34-104) U/L Total Protein 6.9 (6.0-8.3) gm/dl Albumin 4.2 (3.4-5.0) gm/dl Diagnostic Findings Transthoracic echocardiogram performed on 04/26/2025 revealing normal left ventricular systolic function, LVEF 60-65%, grade 1 diastolic dysfunction, there is a bioprosthetic aortic valve with normal prosthetic gradients and no signi ficant prosthetic regurgitation Mild to moderate mitral regurgitation noted Mild tricuspid regurgitation Mild aortic root enlargement Coding Level of Care Code 13337 IN/OBS CONSULT LVL 4,60M Diagnoses Atrial fibrillation with rapid ventricular response I48.91 PSVT (paroxysmal supraventricular tachycardia) I47.10 Tachy-yamil syndrome I49.5
--- NOTE | 2025-06-24 14:24 | History & Physical Report ---
Date of Service June 24, 2025 Assessment & Plan (1) Tachy-naida syndrome: (2) PSVT (paroxysmal supraventricular tachycardia): (3) Hypertension: (4) Aortic valve stenosis: (5) H/O Whipple procedure: (6) GERD (gastroesophageal reflux disease): Plan: This is a 80yo M with a PMH of paroxysmal A fib, HTN, dyslipidemia, IPMN s/p Whippe in 04/10, GERD, s/p AVR who presents with palpitations starting this AM consistent with tachy-naida syndrome Tachy-naida syndrome PSVT on home monitoring device from 8-9 am ~140 bpm, with ECG in ED demonstrating NSR in 60s Intermittent symptoms for 3 months with plans for EP evaluation for pacemaker Seen by Dr. Doan in ED, plan for pacemaker placement tomorrow with Dr. Flores Holding eliquis Home regimen includes amiodarone and toprol Monitor on tele Repeat labs in AM, NPO at midnight HTN Home regimen includes amlodipine, enalapril, Toprol Aortic valve stenosis S/p AVR with bioprosthetic valve in 2016 H/o Whipple procedure Performed at [facility] [place] in Mar 2025, gradually regaining strength but still ambulating with a walker Reportedly lost 15 lbs since surgery due to reduced appetite, is prioritizing small, protein-rich meals GERD Continue PPI DVT Ppx: SCDs for now with planned procedure Code status: FULL PCP: Cezar Dispo: Admitted to PCU Patient seen in collaboration with Dr. Cardenas. Please see addendum. I spent a total of 75 minutes coordinating, documenting, and providing care for this patient excluding time spent in the performance of separately billed services or time spent by another provider/QHP. History of Present Illness Chief Complaint: palpitations Primary Care Provider: Ana Robb MD This is a 80yo M with a PMH of paroxysmal A fib, HTN, dyslipidemia, IPMN s/p Whippe in 04/10, GERD, s/p AVR who presents with palpitations starting this AM. Patient has had 4 episodes of tachycardia since April, most recently this morning at 8:30 AM. Feels symptomatic with palpitations and associated lightheadedness. Tried valsalva maneuver but symptoms did not resolve. Episode lasted approximately 1 hr. Checked his home monitor and HR was in 140s so he came to ER for further evaluation. Follows closely with Dr. Seaman with previously documented borderline tachy-naida planning to see EP in September. No F/C, pre-syncope, CP, SOB, N/V, abd pain, dysuria. Has lost 15 lbs due to early satiety following Whipple but is eating smaller, protein-rich meals. Took meds this morning, including Eliquis. Allergies Allergy/AdvReac Type Severity Reaction Status Date / Time latex Allergy Intermediate swelling Verified 02/20/23 15:37 on contact ragweed pollen Allergy Intermediate swelling Verified 02/20/23 15:37 tetracycline Allergy Intermediate hives Verified 02/20/23 15:37 Home Medications Medication Instructions Recorded Confirmed Type ascorbate calcium-bioflavonoid 500 1 tab PO DAILY 12/15/18 06/24/25 History mg-200 mg tablet (Macey-C with Bioflavonoids) calcium carbonate (Calcium 600) 600 mg PO BID 12/15/18 06/24/25 History magnesium oxide 400 mg PO BID 12/15/18 06/24/25 History vitamin B complex (B-Complex 1 tab PO Q OTHER DAY 12/15/18 06/24/25 History tablet) amiodarone 200 mg tablet 100 mg PO DAILY 02/20/23 06/24/25 History aspirin 81 mg tablet,delayed 81 mg PO DAILY 02/20/23 06/24/25 History release pjijdpxbftr-rrl-qhujaudsb-hrb 2 tab PO DAILY 02/20/23 06/24/25 History 149-hyalur 500 mg-500 mg-66.7 mg tablet (Vncaatfoizd-Iasrgwgnstz-YCS (with antiox)) lansoprazole 30 mg capsule,delayed 30 mg PO DAILY 02/20/23 06/24/25 History release amlodipine 5 mg tablet 5 mg PO DAILY 04/25/25 06/24/25 History docusate sodium 100 mg capsule 100 mg PO BID 04/25/25 06/24/25 History apixaban 5 mg tablet (Eliquis) 5 mg PO BID #60 tabs 04/26/25 06/24/25 Rx cholecalciferol (vitamin D3) 25 25 mcg PO DAILY 05/31/25 06/24/25 History mcg (1,000 unit) chewable tablet (Vitamin D3) enalapril maleate 5 mg tablet 5 mg PO DAILY 05/31/25 06/24/25 History (Vasotec) metoprolol succinate 25 mg 25 mg PO DAILY 05/31/25 06/24/25 History tablet,extended release 24 hr Past Med/Surg History Problem List (Updated 06/24/25 @ 14:48 by Lynn Ponce PA-C) Tachy-naida syndrome PSVT (paroxysmal supraventricular tachycardia) Atrial fibrillation with rapid ventricular response (Acute) Paroxysmal atrial fibrillation Hypocalcemia (Acute) Elevated troponin (Acute) Atrial fibrillation (Acute) Palpitations (Acute) Acute pancreatitis (Acute) Abdominal pain (Acute) Atrial fibrillation Hypertension (Chronic) Bronchitis (Acute) GERD (gastroesophageal reflux disease) (Chronic) Medical History (Updated 06/24/25 @ 14:48 by Lynn Ponce PA-C) Aortic valve stenosis GERD (gastroesophageal reflux disease) HTN (hypertension) Surgical History (Updated 06/24/25 @ 14:50 by Lynn Ponce PA-C) H/O Whipple procedure Hx of hernia repair age 7 History of hip replacement b/l Hx of aortic valve replacement done in [place], [place] Dr. Zach Wood Family History Other Family history non-contributory Social History Smoking Status: Never smoker Second Hand Exposure: No; Do You Dip or Chew Tobacco: No; Hx Alcohol Use: No Hx Substance Use: No Preferred Language: Haitian Communication Ability: Effective Branch Sales Manager Required: No Beliefs That Will Affect Care: None marital status: Current Living Situation: Spouse current occupational status: retired Feels Safe at Home: Yes Assistive Devices: Glasses and Walker Review of Systems Review of Systems: At least ten systems reviewed and negative except as noted in the HPI. Physical Exam Physical Exam: Please see Dr. Cardenas' addendum for physical exam. Results & Data Results & Data Vital Signs (Past 12 Hours) Vital Signs Temp Pulse Resp BP Pulse Ox O2 Del Method 06/24/25 12:00 60 16 104/64 95 06/24/25 10:33 67 06/24/25 10:19 72 18 97 Room Air 06/24/25 10:14 36.6 C 80 18 120/79 96 Room Air Laboratory Results Short CBC 06/24/25 Range/Units 10:30 WBC 6.17 (4.8-10.8) K/ul Hgb 14.0 (14.0-18.0) g/dL Hct 43.4 (42.0-52.0) % Plt Count 314 (130-400) K/uL BMP 06/24/25 10:30 Sodium 140 Potassium 3.5 Chloride 107 Carbon Dioxide 25 BUN 16 Creatinine 0.82 Glucose 103 H Calcium 8.7 Liver Function 06/24/25 Range/Units 10:30 Total Bilirubin 0.8 (0.2-1.0) mg/dl AST 25 (13-39) U/L ALT 25 (7-52) U/L Alkaline Phosphatase 134 H (34-104) U/L Albumin 4.2 (3.4-5.0) gm/dl Diagnostic Findings Chest X-Ray 06/24/25 10:19 SINGLE VIEW CHEST CLINICAL HISTORY: Chest pain. FINDINGS: An AP, portable, upright chest radiograph is compared to study dated 06/12/2025. The patient is status post midline sternotomy. The heart is enlarged noting atherosclerotic calcification of the thoracic aorta. There is pulmonary vascular congestion. There are low lung volumes. Atelectasis is seen at the lung bases. Trace pleural effusions are suspected. No pneumothorax is seen. The skeletal structures are osteopenic. The bony thorax is grossly intact. IMPRESSION: 1. Cardiomegaly with evidence of congestive failure. Radiographic follow-up to resolution is recommended. 2. Trace pleural effusions are suspected. ACT 112: Negative or not required by law. Electronically signed by: Venkat Velasquez M.D. 06/24/2025 11:05 AM Code Status & VTE Plan VTE Prophylaxis Plan VTE Prophylaxis will be ordered: No Supervising Physician Co-Signing Physician Notes I have seen and discussed the case with the collaborating advanced practitioner. I agree with the above H&P. I have reviewed and confirmed the patients medical history, the findings on physical examination, and the patients diagnosis and treatment plan with Kris BENTLEY and agree with the information documented. Evaluated patient at bedside. Patient is pleasant and comfortable. He reports discomfort with palpitations up to 140s-160s and previously was told to come to the hospital if it were to recur. His vasovagal maneuver did not help prompting him to present today. Patient understands plan for pacemaker. Will continue home regimen with plan to hold Eliquis tonight and tomorrow morning. Patient denies any other concerns--no other chest pain, sob, syncope or other complaints. at bedside. GENERAL APPEARANCE: AxOx4, generally well-appearing elderly M, no acute distress. HEENT: NC, AT. MMM. EOMI, clear conjunctiva, oropharynx clear. NECK: Supple without lymphadenopathy. No stiffness or restricted ROM. HEART: slow rate in 50s, regluar rhythm RADHA+ LUNGS: CTAB, moving air well. No crackles or wheezes are heard. ABDOMEN: Soft, nontender, nondistended with good bowel sounds heard. BACK: No CVAT, no obvious deformity. EXTREMITIES: Without cyanosis, clubbing or edema. NEUROLOGICAL: Grossly nonfocal. Alert and oriented, moving all 4 extremities. CN not formally tested but appear grossly intact. Skin: Warm and dry without any rash. #Tachybrady syndrome #Paroxysmal atrial fibrillation #Paroxysmal SVT baseline HR in 50s, on amiodarone and eliquis hold eliquis NPO midnight for pacemaker with Dr Flores #Weight loss #IPMN 03/28/25- whipple procedure consult nutrition #osteoporosis #b/l hip replacements on reclast PT/OT as patient uses walker to prevent falls and pacemaker may complicate recovery I spent a total of 15 minutes coordinating, documenting, and providing care for this patient excluding time spent in the performance of separately billed services. All of the aforementioned completed outside of collaborating with the assigned advanced practitioner for a full treatment plan. I have reviewed the advanced practitioner's documentation, and I agree with, and take responsibility for the plan of care
[2025-06-24] MEDS ORDERED: POLYETHYLENE (MIRALAX) 17 GM PACK PO PRN (17:25)
[2025-06-24] MEDS ORDERED: ONDANSETRON INJ 2 MG/ML 2 ML VIAL IV PRN (17:25)
[2025-06-24] MEDS ORDERED: MELATONIN 3 MG TAB PO PRN (17:25)
[2025-06-24] MEDS: VITAMIN B COMPLEX TAB PO SCH (19:48)
[2025-06-24] MEDS: DOCUSATE SODIUM 100 MG CAP PO SCH (20:29)
[2025-06-24] MEDS: ACETAMINOPHEN 325 MG TAB PO PRN (20:29)
[2025-06-24] MEDS: MAGNESIUM OXIDE 400 MG TAB PO SCH (20:30)
[2025-06-24] MEDS: CALCIUM CARBONATE 1250MG TAB PO SCH (20:30)
[2025-06-25 06:27] LABS: Hematocrit (blood only) 36.4 % (42.0-52.0); Hemoglobin 11.9 g/dL (14.0-18.0); Mean Corpuscular Hemoglobin 29.0 pg (25.0-34.0); Mean Corpuscular Volume 88.8 fL (80.0-100.0); Platelet Count 275 K/uL (130-400); RDW Standard Deviation 46.2 fL (36.4-46.3); Red Blood Count 4.10 M/uL (4.70-6.10); White Blood Count 6.03 K/ul (4.8-10.8)
[2025-06-25 07:01] LABS: Anion Gap 8.0 (3-11); Blood Urea Nitrogen 13.0 mg/dl (6-23); Calcium 7.9 mg/dl (8.6-10.3); Carbon Dioxide 24.0 mmol/L (21-32); Chloride 108.0 mmol/L (98-107); Creatinine Clr Calc Pharmacy 66.2 ml/min; Glucose 96.0 mg/dl (70-99(Fasting)); Magnesium 2.1 mg/dl (1.7-2.4); Potassium 3.8 mmol/L (3.5-5.1); Sodium 140.0 mmol/L (136-145)
--- NOTE | 2025-06-25 07:46 | History & Physical Bridge Note ---
Date of Service June 25, 2025 History & Physical Bridge Note I have examined the patient, reviewed the History & Physical and in the interval since the performance of the History & Physical I have noted the following changes of clinical significance: pt with worsening TBS and is recommended a pacemaker prior to hospital discharge. I explained the procedure and potential risks with the patient; he expressed an understanding and consents signed.
--- NOTE | 2025-06-25 07:46 | Pre Anesthesia Assessment ---
Date of Service June 25, 2025 Pre Sedation Assessment Vital Signs Temp Pulse Pulse Resp BP BP Pulse Ox 06/25/25 03:02 36.8 C 18 125/53 L 91 06/24/25 23:18 36.6 C 47 L 18 117/75 90 06/24/25 22:03 45 L 06/24/25 20:00 06/24/25 19:00 36.5 C 51 L 18 133/78 92 06/24/25 18:46 55 L 06/24/25 17:54 36.5 C 59 L 18 153/83 H 96 06/24/25 17:25 06/24/25 17:08 52 L 16 139/81 94 06/24/25 15:51 52 L 16 120/73 93 06/24/25 15:14 64 06/24/25 12:00 60 16 104/64 95 06/24/25 10:33 67 06/24/25 10:19 72 18 97 06/24/25 10:14 36.6 C 80 18 120/79 96 Pulse Ox O2 Del Method O2 Del Method 06/25/25 03:02 Room Air 06/24/25 23:18 Room Air 06/24/25 22:03 06/24/25 20:00 Room Air 06/24/25 19:00 Room Air 06/24/25 18:46 06/24/25 17:54 Room Air 06/24/25 17:25 96 Room Air 06/24/25 17:08 Room Air 06/24/25 15:51 Room Air 06/24/25 15:14 06/24/25 12:00 06/24/25 10:33 06/24/25 10:19 Room Air 06/24/25 10:14 Room Air Cardiovascular + bradycardic Respiratory normal respiratory effort, lungs clear to auscultation Pre-Sedation Airway Assessment Smoking Status: Never smoker Hx Sleep Apnea: No Hx Difficult Intubation: No Short, Thick Neck: No Thyromental Distance: < 3.5 Finger Breadths Oral Cavity: + Dental Abnormalities and + WNL Mallampati Class: II ASA: ASA3 NPO Status Date of Last Intake of Fluids: 06/24/25 Date of Last Intake of Solid Food: 06/24/25 Notes The planned sedation has been discussed with the patient. Informed Consent was obtained. I have identified the patient, determined the appropriateness of sedation and have assessed the patient immediately prior to the procedure. All medicine(s) and interventions are by my order.
[2025-06-25] MEDS: BUPIVACAINE 0.25% PF 30 ML VIAL ONE (08:38)
[2025-06-25] MEDS: LIDOCAINE 1% LOCAL 20 ML VIAL ONE (08:38)
[2025-06-25] MEDS: VANCOMYCIN HCL 1000MG/20ML VIAL ONE (08:38)
[2025-06-25] MEDS: ceFAZolin 330 MG/ML 1 GM VIAL ONE (08:39)
[2025-06-25] MEDS: WATER, STERILE FOR INJ 10 ML VIAL ONE (08:39)
[2025-06-25] MEDS ORDERED: NON-FORMULARY MEDICATION (Ascorbate Calcium-Bioflavonoid [Ester-C With Bioflavonoids] 500- PO SCH (09:00)
[2025-06-25] MEDS: MIDAZOLAM HCL 5 MG/ML 1 ML VIAL ONE (09:29)
--- NOTE | 2025-06-25 09:29 | Post Anesthesia Assessment ---
Date of Service June 25, 2025 Post Sedation Assessment Vital Signs Temp Pulse Pulse Resp BP BP Pulse Ox 06/25/25 07:40 53 L 14 142/75 H 93 06/25/25 03:02 36.8 C 18 125/53 L 91 06/24/25 23:18 36.6 C 47 L 18 117/75 90 06/24/25 22:03 45 L 06/24/25 20:00 06/24/25 19:00 36.5 C 51 L 18 133/78 92 06/24/25 18:46 55 L 06/24/25 17:54 36.5 C 59 L 18 153/83 H 96 06/24/25 17:25 06/24/25 17:08 52 L 16 139/81 94 06/24/25 15:51 52 L 16 120/73 93 06/24/25 15:14 64 06/24/25 12:00 60 16 104/64 95 06/24/25 10:33 67 06/24/25 10:19 72 18 97 06/24/25 10:14 36.6 C 80 18 120/79 96 Pulse Ox O2 Del Method O2 Del Method 06/25/25 07:40 Room Air 06/25/25 03:02 Room Air 06/24/25 23:18 Room Air 06/24/25 22:03 06/24/25 20:00 Room Air 06/24/25 19:00 Room Air 06/24/25 18:46 06/24/25 17:54 Room Air 06/24/25 17:25 96 Room Air 06/24/25 17:08 Room Air 06/24/25 15:51 Room Air 06/24/25 15:14 06/24/25 12:00 06/24/25 10:33 06/24/25 10:19 Room Air 06/24/25 10:14 Room Air Recovery Score Activity: Moves 4 extremities Respiration: Deep Breath/Cough Circulation: +/-20% PreAnes Value Consciousness: Fully Awake Oxygen Saturation: > 92% On Room Air Discharge Sedation Level of Care: Fast Track Phase II Post Sedation Plan On clinical assessment, the patient appears to have tolerated the sedation without complications. Patient is recovering as anticipated. Patient will continue to be monitored by nursing and may be discharged when sedation discharge criteria are met per below protocol. Upon Completions of procedure up to 15 minutes continue every 5 minute vital signs and the P.A.R. score; then discharge to a Phase I or Fast Track to Phase II per the following guidelines: * Discharge Patient to appropriate Phase II area if PAR is 8 or greater or return to pre- procedure baseline. The post - procedure orders will be as directed. * If PAR score is less than 8 or not return to pre-procedure baseline then patient will follow Phase I monitoring till PAR is reached for Phase II. The Phase I may be done in procedure room or may call to secure a Phase I area. * If naloxone or flumazenil are used for reversal, hold in Phase I for continued monitoring from when last reversal dose was given for a minimum of 60 minutes or longer pending the nurse and/or physician discretion of patient condition before discharge to Phase II. Please call the Sedation Physician to re-evaluate and complete post-note for discharge to Phase II area. Do NOT discharge from procedure sedation or Phase 1 until post- sedation evaluation note is complete by procedure /sedation MD Sedation Discharge Instructions to be given to the patient at discharge to home.
--- NOTE | 2025-06-25 09:34 | Operative Report ---
Post Operative Report DATE OF PROCEDURE: 06/25/2025 PREOPERATIVE DIAGNOSES: TBS POSTOPERATIVE DIAGNOSIS: Same PROCEDURE: A dual-chamber rate responsive permanent pacemaker, along with a peripheral venogram under fluoroscopic guidance. SURGEON: Abbey Flores DO ASSISTANTS: None. ANESTHESIA: Monitored conscious sedation administered under my supervision by David Myles. Start time 08:14, end time 09:22, a total of 6 mg of Versed and 150 mcg of fentanyl. INTRAVENOUS FLUIDS: 0 mL. CONTRAST: 12 mL. ANTIBIOTICS: 1 grams of Ancef. ADDITIONAL MEDICATIONS: 1None BLOOD LOSS: 50 mL. URINE OUTPUT: Not applicable. SPECIMENS: None. FINDINGS: See below. DRAINS: None. COMPLICATIONS: None. CONDITION: Stable. INDICATIONS: This is a 80-year-old gentleman who has a past medical history Status post aortic valve replacement with bovine bioprosthesis 2017 for progressive calcific aortic stenosis, [facility], Paroxysmal atrial fibrillation pronounced post operatively on chronic amiodarone therapy, tachy Yamil syndrome, HTN, IPMN status post Whipple. He was admitted to [facility] due to recurrent symptomatic AF wtih RVR and then converted to SB. Due to his worsening TBS he was recommended a pacemaker prior to hospital discharge. CONSENT: Consent was obtained prior to the patient going into the electrophysiology lab. The patient was informed of the risks, benefits, and alternatives to the procedure. Risks include, but not limited to, sudden cardiac , cardiac arrhythmias, cerebrovascular accident, myocardial infarction, injury to his blood vessels, chamber of the heart and lung, bleeding and infection. The patient understood these risks and agreed to the procedure as planned. Informed consent was obtained. DESCRIPTION OF PROCEDURE: The patient was brought into electrophysiology lab in a fasting state. He was connected to continuous cardiac monitoring. A timeout was performed to ensure the patient's identity and procedure correctly. He was prepped and draped in the left infraclavicular space in normal surgical standard fashion. Monitored conscious sedation was given throughout the procedure for the patient's comfort level. [place] precautions were maintained throughout the procedure. Prophylactic antibiotics were given prior to incision. A 20 mL of 1% lidocaine and bupivacaine mixture were given in the left deltopectoral groove. An incision was made in the left deltopectoral groove. Blunt dissection was performed down to the pectoralis muscle. Then, using blunt dissection over the pectoralis muscle within the pectoral fascia, a pacemaker pocket was created. Then, a peripheral venogram was performed to identify the axillary vein. Venous axillary access was obtained through a needlestick without any problems. A guidewire was inserted without any resistance. A 6- Palauan sheath was inserted over the guidewire without any resistance. Dilator was removed and a second guidewire was inserted through the sheath to allow for retained venous access. Then a 9 Palauan sheath was inserted over one of the guidewires. The guidewire and dilator were removed. Then, the [employer] 3D medium sheath was inserted through the 9-Palauan sheath over a Glidewire into the right ventricle. The Glidewire and dilator were removed. Then, the left bundle lead was advanced through the sheath and intracardiac electrogram His bundle recordings were performed when the camera was in MAN 10. Once I had an idea where the His bundle was-as I could not see a clear HIS. I then moved the camera to MAN 30 and marked where I estimated the His bundle was on my fluoroscopy screen. I came down about 2 cm from this in a line that would extend out to the apex and then started coming on pacing. Once I found an area where I had a nice W formed pace complex in my lead V1, I then moved the camera to NOR[place] 30. Then the helix was extended into the septum. Then the helix locking tool was placed. Then the lead was screwed further into the septum while pacing by giving slow clockwise turns. Of note I had to reposition it and then when splitting the medium curved [employer] 3D sheath the lead dislodged. So I ended up using a large curved sheath and did have to resposition the lead one time until it was well into the septum. The paced complex changed to a nice R' in V1 and the pacing stim to peak QRS in V6 was good. I did need to reposition the lead a few times before it advanced nicely. I then gave contrast through the sheath to see how far the lead was into the septum and then I slit the [employer] 3D large sheath under fluoroscopic guidance and left the 9-Palauan sheath in while I positioned the right atrial lead. A 6-Palauan sheath was inserted over the retained guidewire, the guidewire and dilator removed. The right atrial lead was then advanced into right atrium and positioned into right atrial appendage under fluoroscopic guidance. There was adequate pacing and sensing thresholds and no diaphragmatic stimulation with high output pacing. The 6-Palauan sheath was peeled away and the lead was fixated to the pectoralis muscle using 0 silk suture. The 9-Palauan sheath around the left bundle lead was peeled away and the lead was fixated to pectoralis muscle using 0 silk suture. The pocket was flushed with copious amounts of vancomycin and saline wash and inspected for hemostasis. The leads were then attached to the pulse generator making sure the pins were in appropriate position, passed set screws, and set screws were all tightened. Pulse generator was then placed in the pocket, making sure the leads were lying flat beneath the device. The incision was closed in a 3-layer fashion using 2-0 Vicryl interrupted suture, followed by 3-0 Vicryl interrupted suture, followed by 4-0 Monocryl running stitch. Then a primaseal dressing was placed EQUIPMENT: 1. Pulse generator is a [employer] MRI Model Number [id number] SN: [id number] 2. Right atrial lead, Jott UlitPace [id number] SN: [id number] 3. Left bundle lead, Jott UltiPace [id number] SN: [id number] INTRAPROCEDURAL FINDINGS: 1. Right atrial lead, P waves 1.6 millivolts, impedance 450 ohms, threshold 0.7 volts at 0.5 milliseconds. 2. Left bundle lead, R waves 6.0 millivolts, impedance 480 ohms, threshold 0.9 volts at 0.5 milliseconds. FINAL MEASUREMENTS THROUGH THE DEVICE: 1. Right atrial lead, P waves 1.5millivolts, impedance 510 ohms, threshold 0.5 volt at 0.4 milliseconds. 2. Left bundle lead, R waves 5.2 millivolts, impedance 510 ohms, threshold 1.0 volts at 0.4 milliseconds. FINAL PARAMETERS: DDDR 60/120, right atrial amplitude 3.5 volts, pulse width 0.4 milliseconds, sensitivity 0.3 millivolts. Left bundle lead amplitude 3.5 volts, pulse width 0.4 milliseconds, sensitivity 2 millivolts. IMPRESSION: Successful dual chamber rate responsive permanent pacemaker under fluoroscopic guidance along with peripheral venogram, all under fluoroscopic guidance secondary to TBS PLAN: Monitor the patient post-procedure. A 12-lead ECG, chest x-ray. He is not to lift the left elbow or left shoulder for 1 month. He cannot lift more than 10 pounds with the left arm for 2 weeks. He is to keep the dressing on and dry until his wound check in 10 days.
[2025-06-25] MEDS: CHOLECALCIFEROL 25 MCG (1000 UNITS) TAB PO SCH (10:28)
[2025-06-25] MEDS: AMIODARONE 200 MG TAB PO SCH (10:29)
[2025-06-25] MEDS: LANSOPRAZOLE 30 MG SOLTAB NG SCH (10:29)
[2025-06-25] MEDS: METOPROLOL SUCC 25MG EXT REL TAB PO SCH ×2 (10:29→21:37)
--- NOTE | 2025-06-25 11:06 | Cardiology Progress Note ---
Date of Service June 25, 2025 Assessment & Plan (1) Atrial fibrillation with rapid ventricular response: (2) PSVT (paroxysmal supraventricular tachycardia): (3) Tachy-naida syndrome: Plan: Patient with symptoms of tachycardia bradycardia syndrome with symptomatic AF RVR and SVT and doses of AV yonny blockers limited by sinus bradycardia down to the 50s at basline. Await post pacemaker CXR due this am at 1130. * Resume Eliquis at 2100 on 06/25/25 * Increase metoprolol succinate to 25 mg BID * Continue amiodarone 100 mg daily * Discharge plan depends on CXR results and how he dose this afternoon. Spouse expressed that perhaps pt would benefit from PT. Michael Doan, Admission and Anticipated Discharge Date Admission Date: June 24, 2025 Subjective Patient seen this am prior to and after dual chamber pacemaker placement. Feeling well. Pain well controlled. SB noted on telemetry overnight. Physical Exam Constitutional: WD/WN, vitals as above Eyes: PERRL, conjunctivae normal, anicteric sclerae Neck: trachea midline, no thyromegaly Respiratory: normal respiratory effort, lungs clear to auscultation Cardiovascular: RRR, no murmur, no edema Vessels: no JVD Gastrointestinal (Abdomen): normal bowel sounds, soft, nontender, no hepatosplenomegaly Neurologic: PERRL, EOMI, accommodation nl, no face palsy, no dysarthria Results & Data Vital Signs (Past 12 Hours) Vital Signs Temp Pulse Resp BP Pulse Ox O2 Del Method 06/25/25 09:30 77 14 149/88 H 95 Room Air 06/25/25 07:40 53 L 14 142/75 H 93 Room Air 06/25/25 03:02 36.8 C 18 125/53 L 91 Room Air 06/24/25 23:18 36.6 C 47 L 18 117/75 90 Room Air Coding Level of Care Code 52024 SUB INP/OBS CARE 2/35MIN Diagnoses Atrial fibrillation with rapid ventricular response I48.91 PSVT (paroxysmal supraventricular tachycardia) I47.10 Tachy-naida syndrome I49.5
--- NOTE | 2025-06-25 11:52 | Hospitalist Progress Note ---
Date of Service June 25, 2025 Assessment & Plan (1) Tachy-naida syndrome: (2) PSVT (paroxysmal supraventricular tachycardia): (3) Hypertension: (4) Aortic valve stenosis: (5) H/O Whipple procedure: (6) GERD (gastroesophageal reflux disease): Plan: This is a 80yo M with a PMH of paroxysmal A fib, HTN, dyslipidemia, IPMN s/p Whippe in 04/10, GERD, s/p AVR who presents with palpitations starting AM of the day of presentation consistent with tachy-naida syndrome Tachy-naida syndrome PSVT on home monitoring device from 8-9 am ~140 bpm, with ECG in ED demonstrating NSR in 60s Intermittent symptoms for 3 months with plans for EP evaluation for pacemaker Status post dual-chamber pacemaker placement 06/25. Postprocedure CXR with no pneumothorax per my interpretation. Cardiology on board, plan to resume Eliquis from tonight. Metoprolol uptitrated. Monitor labs, monitor over telemetry. HTN: Cardiac meds being optimized, see above. c/w toprol bid for now, monitor BP. resume home ACEi. Aortic valve stenosis: S/p AVR with bioprosthetic valve in 2016 H/o Whipple procedure [place] [facility] [place], gradually regaining strength but still ambulating with a walker Reportedly lost 15 lbs since surgery due to reduced appetite, is prioritizing small, protein-rich meals GERD : Continue PPI DVT Ppx: SCDs for now, eliquis from evening. Code status: FULL PCP: Cezar Dispo: Admitted to PCU , await PT eval, possible dc w/ cards clearance after PT eval. Admission and Anticipated Discharge Date Admission Date: June 24, 2025 Subjective Patient was seen and examined at bedside. Patient was sitting up in bed, eating his breakfast. Patient is a status post dual-chamber pacemaker. Patient denies any fever/sore throat/chest pain/cough/pain or burning while passing urine/acute issues with bowel habits. Patient's at bedside was also updated on plan of care. Physical Exam Physical Exam: GENERAL APPEARANCE: AxOx4, generally well-appearing elderly M, no acute distress. HEENT: NC, AT. MMM. EOMI, clear conjunctiva, oropharynx clear. NECK: Supple without lymphadenopathy. No stiffness or restricted ROM. HEART: RRR, RADHA+ Left upper chest with clean dressing without soakage. LUNGS: CTAB, moving air well. No crackles or wheezes are heard. ABDOMEN: Soft, nontender, nondistended with good bowel sounds heard. BACK: No CVAT, no obvious deformity. EXTREMITIES: Without cyanosis, clubbing or edema. NEUROLOGICAL: Grossly nonfocal. Alert and oriented, moving all 4 extremities. CN not formally tested but appear grossly intact. Skin: Warm and dry without any rash. Results & Data Results & Data Vital Signs (Past 12 Hours) Vital Signs Temp Pulse Resp BP Pulse Ox O2 Del Method 06/25/25 10:54 Room Air 06/25/25 09:30 77 14 149/88 H 95 Room Air 06/25/25 07:40 53 L 14 142/75 H 93 Room Air 06/25/25 03:02 36.8 C 18 125/53 L 91 Room Air
[2025-06-25] MEDS: MIDAZOLAM HCL 1 MG/ML 2ML VIAL ONE (12:22)
--- NOTE | 2025-06-25 12:34 | XRay Report ---
SINGLE VIEW CHEST CLINICAL HISTORY: Pacemaker implantation. FINDINGS: An AP, portable, upright chest radiograph is compared to study dated 06/24/2025. The patient is status post midline sternotomy. A lead cardiac pacemaker has been placed. Leads project over the right atrial appendage and the right ventricle. The heart is enlarged noting atherosclerotic calcific ation of the thoracic aorta. There is pulmonary vascular congestion. There are low lung volumes. Atel ectasis is seen at the lung bases. Trace pleural effusions are suspected. No pneumothorax is seen. Th e skeletal structures are osteopenic. The bony thorax is grossly intact. IMPRESSION: 1. A 2-lead cardiac pacemaker has been placed as above. No pneumothorax is identified post procedure. 2. Cardiomegaly without evidence of congestive failure. 3. Trace pleural effusions are suspected. ACT 112: Negative or not required by law. Electronically signed by: Venkat Velasquez M.D. 06/25/2025 12:33 PM
--- NOTE | 2025-06-25 12:56 | Communication Note ---
Date of Service: June 25, 2025 CXR reviewed. No pneumothorax . Stable findings. Await PT input. Michael Doan DO
[2025-06-25] MEDS: APIXABAN 5 MG TABLET PO SCH (21:37)
[2025-06-26 06:38] LABS: Hematocrit (blood only) 36.7 % (42.0-52.0); Hemoglobin 12.3 g/dL (14.0-18.0); Mean Corpuscular Hemoglobin 29.9 pg (25.0-34.0); Mean Corpuscular Volume 89.1 fL (80.0-100.0); Platelet Count 260 K/uL (130-400); RDW Standard Deviation 46.3 fL (36.4-46.3); Red Blood Count 4.12 M/uL (4.70-6.10); White Blood Count 6.90 K/ul (4.8-10.8)
[2025-06-26 07:27] LABS: Anion Gap 7.0 (3-11); Blood Urea Nitrogen 15.0 mg/dl (6-23); Calcium 8.1 mg/dl (8.6-10.3); Carbon Dioxide 24.0 mmol/L (21-32); Chloride 107.0 mmol/L (98-107); Creatinine Clr Calc Pharmacy 84.2 ml/min; Glucose 98.0 mg/dl (70-99(Fasting)); Magnesium 2.2 mg/dl (1.7-2.4); Potassium 3.9 mmol/L (3.5-5.1); Sodium 138.0 mmol/L (136-145)
[2025-06-26] MEDS: ASPIRIN 81 MG ECTAB PO SCH (08:06)
[2025-06-26] MEDS: ENALAPRIL MALEATE 5 MG TAB PO SCH (08:06)
--- NOTE | 2025-06-26 10:47 | Electrocardiogram Report ---
Test Reason : Blood Pressure : */* mmHG Vent. Rate : 75 BPM Atrial Rate : 75 BPM P-R Int : 114 ms QRS Dur : 88 ms QT Int : 414 ms P-R-T Axes : 18 -9 18 degrees QTcB Int : 462 ms Normal sinus rhythm Inferior infarct (cited on or before 31-May-2025) Abnormal ECG When compared with ECG of 24-Jun-2025 10:24, (unconfirmed) No significant change was found Confirmed by Mekhi Hong ([id number]) on 06/26/2025 10:46:37 AM Referred By: REFERRED SELF Confirmed By: Mekhi Hong
[2025-06-26 11:28] VITALS: PULSE 61; RESP 17; TEMP 98.2; O2SAT 92
--- NOTE | 2025-06-26 11:54 | Discharge Summary ---
Date of Service June 26, 2025 Admission HPI Per Admitting Provider This is a 80yo M with a PMH of paroxysmal A fib, HTN, dyslipidemia, IPMN s/p Whippe in 04/10, GERD, s/p AVR who presents with palpitations starting this AM. Patient has had 4 episodes of tachycardia since April, most recently this morning at 8:30 AM. Feels symptomatic with palpitations and associated lightheadedness. Tried valsalva maneuver but symptoms did not resolve. Episode lasted approximately 1 hr. Checked his home monitor and HR was in 140s so he came to ER for further evaluation. Follows closely with Dr. Seaman with previously documented borderline tachy-naida planning to see EP in September. No F/C, pre-syncope, CP, SOB, N/V, abd pain, dysuria. Has lost 15 lbs due to early satiety following Whipple but is eating smaller, protein-rich meals. Took meds this morning, including Eliquis. Admission Exam Per Admitting Provider GENERAL APPEARANCE: AxOx4, generally well-appearing elderly M, no acute distress. HEENT: NC, AT. MMM. EOMI, clear conjunctiva, oropharynx clear. NECK: Supple without lymphadenopathy. No stiffness or restricted ROM. HEART: slow rate in 50s, regluar rhythm RADHA+ LUNGS: CTAB, moving air well. No crackles or wheezes are heard. ABDOMEN: Soft, nontender, nondistended with good bowel sounds heard. BACK: No CVAT, no obvious deformity. EXTREMITIES: Without cyanosis, clubbing or edema. NEUROLOGICAL: Grossly nonfocal. Alert and oriented, moving all 4 extremities. CN not formally tested but appear grossly intact. Skin: Warm and dry without any rash. Principal Diagnosis Tachy-naida syndrome Discharge Exam GENERAL APPEARANCE: AxOx4, generally well-appearing elderly M, no acute distress. HEENT: NC, AT. MMM. EOMI, clear conjunctiva, oropharynx clear. NECK: Supple without lymphadenopathy. No stiffness or restricted ROM. HEART: RRR, RADHA+ Left upper chest with clean dressing without soakage. LUNGS: CTAB, moving air well. No crackles or wheezes are heard. ABDOMEN: Soft, nontender, nondistended with good bowel sounds heard. BACK: No CVAT, no obvious deformity. EXTREMITIES: Without cyanosis, clubbing or edema. NEUROLOGICAL: Grossly nonfocal. Alert and oriented, moving all 4 extremities. CN not formally tested but appear grossly intact. Skin: Warm and dry without any rash. Discharge Data Allergies Allergy/AdvReac Type Severity Reaction Status Date / Time latex Allergy Intermediate swelling Verified 02/20/23 15:37 on contact ragweed pollen Allergy Intermediate swelling Verified 02/20/23 15:37 tetracycline Allergy Intermediate hives Verified 02/20/23 15:37 Consultations 06/24/25 12:58 ED Decision to Admit Stat 06/24/25 14:21 Consult Cardiology Routine Procedures Performed Operation Date: 06/25/25 08:00 Actual Procedures p Pacer with A/V Leads (Dual) - Abbey Flores DO s Venogram, Unilateral - Abbey Flores DO Ordered Studies 06/25/25 07:15 EP Lab Images for PACS ONCE Hospital Course (1) Tachy-naida syndrome: (2) PSVT (paroxysmal supraventricular tachycardia): (3) Hypertension: (4) Aortic valve stenosis: (5) H/O Whipple procedure: (6) GERD (gastroesophageal reflux disease): This is a 80yo M with a PMH of paroxysmal A fib, HTN, dyslipidemia, IPMN s/p Whippe in 04/10, GERD, s/p AVR who presents with palpitations starting AM of the day of presentation consistent with tachy-naida syndrome Tachy-naida syndrome PSVT on home monitoring device from 8-9 am ~140 bpm, with ECG in ED demonstrating NSR in 60s Intermittent symptoms for 3 months with plans for EP evaluation for pacemaker Status post dual-chamber pacemaker placement 06/25. Postprocedure CXR with no pneumothorax. Cardiology on board, resumed Eliquis. Metoprolol uptitrated. Monitor labs, monitor over telemetry. HTN: Cardiac meds being optimized, see above. c/w toprol bid for now, monitor BP. c/w home ACEi. Aortic valve stenosis: S/p AVR with bioprosthetic valve in 2016 H/o Whipple procedure Performed at [facility] [place] in Mar [place]25, gradually regaining strength but still ambulating with a walker Reportedly lost 15 lbs since surgery due to reduced appetite, is prioritizing small, protein-rich meals GERD : Continue PPI DVT Ppx: eliquis Code status: FULL PCP: Ceazr Patient is being discharged with following instructions at the point of discharge: Device and wound check at [facility] in 10-14 days-someone will call you to schedule Your BP/cardiac meds were optimized, metoprolol dose increased and amlod discontinued. Measure your BP twice a day and maintain a log to take to your PCP office for ongoing evaluation/management of your HTN. Follow up with your PCP office within a week time. Home Health Attestation I certify that this patient is under my care and that I, or a physicians retirement assistant working with me, had a face to-face encounter that meets the home health pihs-[id number] encounter requirements with this patient. The encounter with the patient was in whole, or in part, for the following medical condition, which is the primary reason for home health care (list medical condition): I certify that, based on my findings, the following services are medically n ecessary home health services: My clinical findings support the need for the above services because: Further, I certify that my clinical findings support that this patient is homebound (i.e. absences from home require considerable and taxing effort and are for medical reasons or baptism services or infrequently or of short duration when for other reasons) because: Certification for Home Health Services: Based on the above findings, I certify that this patient is confined to the home and needs intermittent group home care, physical therapy and/or speech therapy or continues to need occupational therapy. The patient is under my care, and I have initiated the establishment of the plan of care. This patient will be followed by a physician who will periodically review the plan of care. Total Time Total Time Spent Total Time Spent (In Minutes): 35 Discharge Plan Discharge Items Patient Disposition: Home - Self-Care Reason For Visit: TACHY NAIDA SYNDROME Discharge Diagnosis: Tachy-naida syndrome Condition on Discharge: Fair Activity: As commented below Activity Comment: do not raise the left elbow over the left shoulder for 1 month Lifting: No more than 10 pounds Lifting Comment: do not lift more than 10 pounds with the left arm for 2 weeks Bathing: Keep incision dry Bathing Comment: keep dressing on & dry until wound check-no shower Non-emergency contact: Primary Care Provider Call non-emergency contact if: you have any medication questions and your symptoms worsen Follow-up/Referrals: Ana Robb MD [Primary Care Provider] - (Date & Time 07/01/2025 10:20 AM Provider: Ana Robb MD General Internal Medicine [facility] ) Abbey Flores DO [Physician] - Diet: Heart Healthy Addtl Attending Provider Instructions: Device and wound check at [facility] in 10-14 days-someone will call you to schedule Your BP/cardiac meds were optimized, metoprolol dose increased and amlod discontinued. Measure your BP twice a day and maintain a log to take to your PCP office for ongoing evaluation/management of your HTN. Follow up with your PCP office within a week time. Pending Studies at Discharge: No Stand-Alone Forms: My [facility] [place] [employer], Smoking Cessation Medications and DC Order Prescriptions: New metoprolol succinate 25 mg Tablet Extended Release 24 Hr 25 mg PO BID Qty: 60 0RF Continued calcium carbonate [Calcium 600] 600 mg calcium (1,500 mg) Tablet 600 mg PO BID Patient Comments: 06/24- otc unable to verify vitamin B complex [B-Complex] Tablet 1 tab PO Q OTHER DAY Patient Comments: 06/24- otc unable to verify Macey-C with Bioflavonoids 500-200 mg Tablet 1 tab PO DAILY Patient Comments: 06/24- otc unable to verify magnesium oxide 400 mg magnesium Tablet 400 mg PO BID amiodarone 200 mg tablet 100 mg PO DAILY Patient Comments: 04/25-pt states he has been taking half a tab for a dose of 100mg for 9 months aspirin 81 mg Tablet,Delayed Release (Dr/Ec) 81 mg PO DAILY Patient Comments: 06/24- otc unable to verify lansoprazole 30 mg capsule,delayed release(DR/EC) 30 mg PO DAILY [id number] [[id number]-[id number] (with antiox)] 500-500-66.7 mg Tablet 2 tab PO DAILY Patient Comments: 06/24- otc unable to verify docusate sodium 100 mg capsule 100 mg PO BID Patient Comments: 06/24- OTC/last filled 04/04 30 day supply #60 Eliquis 5 mg Tablet 5 mg PO BID Qty: 60 0RF enalapril maleate [Vasotec] 5 mg Tablet 5 mg PO DAILY cholecalciferol (vitamin D3) [Vitamin D3] 25 mcg (1,000 unit) Tablet,Chewable 25 mcg PO DAILY Patient Comments: 06/24- otc unable to verify Discontinued amlodipine 5 mg tablet 5 mg PO DAILY metoprolol succinate 25 mg Tablet Extended Release 24 Hr 25 mg PO DAILY Patient Comments: 06/24-06/24- per fill history 06/09 written for 25mg po daily. Original:12.5mg po daily Discharge Orders: Discharge Order (Routine); Ordered 06/26/25 Ordered By: Garrett Diego Admission Data Admit Date/Time: 06/24/25 14:21 Attending Provider: Garrett Diego Admit Provider: Dayna Cardenas Primary Care Provider: Ana Robb Other Providers: Dayna Cardenas; Torsten Doan
--- NOTE | 2025-06-26 11:55 | Cardiology Progress Note ---
Date of Service June 26, 2025 Assessment & Plan (1) Atrial fibrillation with rapid ventricular response: (2) PSVT (paroxysmal supraventricular tachycardia): (3) Tachy-naida syndrome: Plan: Patient with symptoms of tachycardia bradycardia syndrome with symptomatic AF RVR and SVT and doses of AV yonny blockers limited by sinus bradycardia down to the 50s at baseline. Chest x-ray performed after implantation of dual-chamber Gutierrez pacemaker (right atrial lead, left bundle lead) revealed stable findings with appropriate lead position and no pneumothorax. Device was interrogated with the assistance of the Gutierrez medical investigator today with stable findings. * Prior to hospital dose of metoprolol succinate has been increased from 25 mg daily to 25 mg twice daily * Continue [employer]PERATOR dose of amiodarone 100 mg daily * Aspirin 81 mg daily, Eliquis 5 mg twice daily resumed. * Prior to hospital treatment with Eliquis and amlodipine to be continued * He is not to lift the left elbow or left shoulder for 1 month. He cannot lift more than 10 pounds with the left arm for 2 weeks. He is to keep the dressing on and dry until his wound check in 10 days. * I placed a telephone encounter in his outpatient chart to help set up wound check/pacemaker interrogation in 7 to 10 days as per usual device protocol. * He is due for a repeat MRI of the abdomen/pancreas in follow-up with history of IPMN and Whipple procedure. Arrangements are underway to have the location of the MRI changed to [facility] instead of [facility] where the pacemaker can be adjusted to allow for procedure. Michael Doan DO Admission and Anticipated Discharge Date Admission Date: June 24, 2025 Subjective Patient seen cardiology follow-up. Feeling well. Denies lightheadedness, dizziness or subjective palpitations. Telemetry reveals sinus rhythm with atrial pacing in the 60s without recurrence of SVT or atrial fibrillation over night last night.He reports his procedural pain post-pacemaker is well- controlled. Physical Exam Constitutional: WD/WN, vitals as above Eyes: PERRL, conjunctivae normal, anicteric sclerae Neck: trachea midline, no thyromegaly Respiratory: normal respiratory effort, lungs clear to auscultation Cardiovascular: RRR, no murmur, no edema Vessels: no JVD Gastrointestinal (Abdomen): normal bowel sounds, soft, nontender, no hepatosplenomegaly Neurologic: PERRL, EOMI, accommodation nl, no face palsy, no dysarthria Results & Data Vital Signs (Past 12 Hours) Vital Signs Temp Pulse Pulse Resp BP Pulse Ox O2 Del Method 06/26/25 11:27 36.8 C 61 17 131/65 92 Room Air 06/26/25 09:00 63 06/26/25 08:00 36.4 C L 61 16 143/90 H 94 Room Air 06/26/25 02:31 37.1 C 60 16 128/80 93 Room Air Laboratory Results CBC 06/26/25 Range/Units 06:18 WBC 6.90 (4.8-10.8) K/ul RBC 4.12 L (4.70-6.10) M/uL Hgb 12.3 L (14.0-18.0) g/dL Hct 36.7 L (42.0-52.0) % Plt Count 260 (130-400) K/uL Comprehensive Metabolic Panel 06/26/25 Range/Units 06:18 Sodium 138 (136-145) mmol/L Potassium 3.9 (3.5-5.1) mmol/L Chloride 107 (98-107) mmol/L Carbon Dioxide 24 (21-32) mmol/L BUN 15 (6-23) mg/dl Creatinine 0.73 (0.6-1.4) mg/dl Glucose 98 (70-99(Fasting)) mg/dl Calcium 8.1 L (8.6-10.3) mg/dl Diagnostic Findings EKG performed 06/25/2025 at 10:12 AM after pacemaker insertion revealed sinus rhythm at 75 bpm, age-indeterminate inferior infarct pattern, stable findings. PG Care Time/CCT Total # of Minutes Spent Total Time Spent with Patient: Total time spent is greater than 50% in coordination of care (as documented) at patient's floor/unit and/or counseling patient: Coding Level of Care Code 87857 SUB INP/OBS CARE 3/50MIN Diagnoses Atrial fibrillation with rapid ventricular response I48.91 PSVT (paroxysmal supraventricular tachycardia) I47.10 Tachy-naida syndrome I49.5
[2025-06-26 12:05] VITALS: BP 137/82
--- NOTE | 2025-06-27 18:15 | Electrocardiogram Report ---
Test Reason : Blood Pressure : */* mmHG Vent. 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
== END 2025-06-26 13:09 | disposition home or self-care (01) | DRG 243 ==
LOC: ED 10:11 → 2S 14:21 → SUATTDRO 14:21 → 2S 17:08